=== PATIENT | male | born 1945 | race Caucasian/White ===

== ENCOUNTER → 2016-10-22 | Outpatient (CLI) | payer OTHER, BC ==
[~2016-10-22] MED LIST: ACP20 PO; AFRINWC; AMLO5TAB2 PO; AZEL0.15 NAE; LSN40 PO; MULT-506 PO; OXYC-57 PO; RANI300T2 PO
--- NOTE | 2016-10-22 19:10 | DIAGNOSTIC IMAGING REPORT ---
MRI OF THE CERVICAL SPINE WITHOUT IV CONTRAST CLINICAL HISTORY: Neck pain and left arm numbness. COMPARISON STUDY: No priors. TECHNIQUE: MRI of the cervical spine is performed utilizing various T1 and T2-weighted sequences in the axial and sagittal planes. IV contrast was not administered for this examination. The examination is modestly degraded by motion artifact. FINDINGS: Cervical spine: Vertebral body height and alignment are maintained throughout the cervical spine. There is mild straightening of the cervical lordosis. No destructive bony lesion is seen. A large hemangioma is present in the body of T2. The atlantodental articulation appears preserved. The spinous processes are intact as visualized. Intervertebral discs: There is degenerative disc desiccation and loss of height throughout the cervical spine. This is moderate to severe at C5-C6 and C6-C7. Spinal cord: The cervical spinal cord is normal in morphology and signal intensity. C2-C3: Uncovertebral and facet arthropathy causes moderate right and mild to moderate left neural foraminal stenosis. The central canal is clear. C3-C4: Uncovertebral and facet arthropathy cause moderate to severe bilateral neural foraminal stenosis. The central canal appears clear. C4-C5: A posterior disc osteophyte complex abuts the ventral cord. Uncovertebral and facet arthropathy cause severe left and moderate to severe right neural foraminal stenosis. C5-C6: A posterior disc osteophyte complex eccentric to the left effaces the ventral cord. Uncovertebral and facet arthropathy cause severe left greater than right neural foraminal stenosis. A portion of the disc osteophyte complex extends inferiorly within the central canal. This measures 1.4 cm in length. C6-C7: A posterior disc osteophyte complex eccentric to the right effaces the ventral subarachnoid space. Uncovertebral and facet arthropathy cause mild to moderate right greater than left neural foraminal stenosis. C7-T1: Predominant facet arthropathy causes mild left neural foraminal stenosis. The central canal is clear. Soft tissues: The prevertebral and paraspinous soft tissues are within normal limits. Brain parenchyma: Partially imaged brain parenchyma at the skull base is normal in appearance. IMPRESSION: 1. Multilevel cervical spondylosis as detailed above. This is greatest at C5-C6 where a large posterior disc osteophyte complex extends inferiorly into the central canal, effaces the left aspect of the ventral cord, and contributes to severe left-sided neural foraminal stenosis. 2. See discussion for detailed level by level analysis. 3. The cervical spinal cord is normal in morphology and signal intensity. Dictated: 10/22/2016 5:53 PM Transcribed: 10/22/2016 7:08 PM [email or web address]_Marcella Electronically signed by: Parth Yanez M.D. 10/22/2016 7:11 PM Dictated Date/Time: 10/22/2016 5:53 PM
== END | disposition home or self-care (01) ==
LOC: C.MRI 16:40
DX: M50.00 Cervical disc disorder with myelopathy, unspecified cervical region (principal); M47.12 Other spondylosis with myelopathy, cervical region

== ENCOUNTER → 2016-11-01 | Outpatient (CLI) | payer OTHER, BC | END | disposition home or self-care (01) | LOC: C.LAB 10:36 | DX: E29.1 Testicular hypofunction (principal) ==

== ENCOUNTER → 2016-11-08 | Outpatient (CLI) | payer OTHER, BC ==
[~2016-11-08] MED LIST changes: -AFRINWC; -RANI300T2 PO
[2016-11-08 15:43] LABS: BASO % 0.1 %; BASO ABS # 0.01 K/uL (0-0.2); COMPLETE YES; EOS % 0.6 %; HEMATOCRIT 52.4 % (42-52); IG% 0.7 %; LYMPH % 10.2 %; LYMPH ABS # 1.41 K/uL (1.2-3.4); MEAN CELL VOLUME 92.7 fL (80-100); MEAN CORPUSCULAR HEMOGLOBIN 31.9 pg (25-34); MEAN CORPUSCULAR HGB CONC 34.4 g/dl (32-36); MEAN PLATELET VOLUME 9.8 fL (7.4-10.4); NEUT % 78.4 %; PLATELET COUNT 156 K/uL (130-400); RED BLOOD COUNT 5.65 M/uL (4.7-6.1); WHITE BLOOD COUNT 13.84 K/uL (4.8-10.8)
== END | disposition home or self-care (01) ==
LOC: C.LAB 14:30
PROVIDERS: ATTEND Orthopaedic Surgery Orthopaedic Surgery of the Spine
DX: Z01.812 Encounter for preprocedural laboratory examination (principal)

== ENCOUNTER 2016-11-13 05:30 | Observation (INO) | payer OTHER, BC ==
[2016-11-01 11:16] VITALS: BMI 29.0
--- NOTE | 2016-11-01 11:45 | PAT Medication Instructions ---
Service Date Nov 01, 2016. Current Home Medication List Amlodipine Besylate (Norvasc), 1 TAB PO QAM Azelastine Hcl (Astepro), 2 SPRY SHUN HS Lisinopril (Lisinopril), 40 MG PO QAM Multivitamin (Multivitamin), 1 TAB PO QAM Rabeprazole Sodium (Aciphex *), 20 MG PO QAM Medication Instructions For Your Scheduled Surgery - Hold the following medications the morning of surgery: Lisinopril (Lisinopril), 40 MG PO QAM Multivitamin (Multivitamin), 1 TAB PO QAM - Take the following medications the morning of surgery with a sip of water OTHERWISE NOTHING TO EAT OR DRINK AFTER MIDNIGHT: Amlodipine Besylate (Norvasc), 1 TAB PO QAM Rabeprazole Sodium (Aciphex *), 20 MG PO QAM - Take the following medications as scheduled the night before surgery: Azelastine Hcl (Astepro), 2 SPRY SHUN HS If you have any questions please call us at [phone] or [phone] or [phone]
[2016-11-01 12:15] LABS: BASO % 0.1 %; BASO ABS # 0.01 K/uL (0-0.2); COMPLETE YES; EOS % 0.1 %; HEMATOCRIT 53.3 % (42-52); IG% 0.6 %; LYMPH % 5.6 %; LYMPH ABS # 0.97 K/uL (1.2-3.4); MEAN CELL VOLUME 92.7 fL (80-100); MEAN CORPUSCULAR HEMOGLOBIN 32.7 pg (25-34); MEAN CORPUSCULAR HGB CONC 35.3 g/dl (32-36); MEAN PLATELET VOLUME 9.9 fL (7.4-10.4); MONO % 4.7 %; NEUT % 88.9 %; PLATELET COUNT 169 K/uL (130-400); RED BLOOD COUNT 5.75 M/uL (4.7-6.1); WHITE BLOOD COUNT 17.25 K/uL (4.8-10.8)
--- NOTE | 2016-11-01 12:25 | DIAGNOSTIC IMAGING REPORT ---
CHEST PREADMISSION(PA/LAT) CLINICAL HISTORY: PAT preoperative evaluation COMPARISON STUDY: 10/29/2015 FINDINGS: Mild tortuosity thoracic aorta. Interval removal of the right-sided PICC catheter. Lungs are clear. Diaphragms smooth. IMPRESSION: Negative chest. Electronically signed by: Cj Graham M.D. 11/01/2016 12:24 PM Dictated Date/Time: 11/01/2016 12:23 PM
[2016-11-01 12:28] LABS: URINE APPEARANCE CLEAR (CLEAR); URINE BILIRUBIN NEG (NEG); URINE COLOR YELLOW; URINE NITRITE NEG (NEG); URINE PH 5.5 (4.5-7.5); UROBILINOGEN NEG (NEG)
[2016-11-01 12:35] LABS: BUN/CREATININE RATIO 23.5 (10-20); CREATININE 1.2 mg/dl (0.60-1.40); POTASSIUM 4.9 mmol/L (3.5-5.1)
[2016-11-01 12:41] LABS: MANUAL MICROSCOPIC REQUIRED? NO; REVIEW REQ? NO
[~2016-11-13] VITALS: Ht 182.9 cm; Wt 99.1 kg
[2016-11-13] VITALS (16 sets, daily range): BP systolic 138–156; BP diastolic 77–89; PULSE 85–98; TEMP 36.6–37; O2SAT 91–98; Ht 182.9 cm; Wt 99.1 kg
[~2016-11-13 05:30] MED LIST changes: -OXYC-57 PO
[2016-11-13] MEDS ORDERED: CeleBREX 200 MG CAP PO SCH (06:00)
[2016-11-13] MEDS ORDERED: PREGABALIN 75 MG CAP PO SCH (06:00)
[2016-11-13] MEDS ORDERED: CEFAZOLIN 2000 MG/60 ML D5W IV SCH (06:00)
[2016-11-13] MEDS ORDERED: LACTATED RINGER'S 1000ML 1,000 ML IV SCH (06:00)
[2016-11-13] MEDS ORDERED: DEXAMETHASONE SOD INJ 4 MG/ML VIAL ONE (06:26)
[2016-11-13] MEDS ORDERED: ONDANSETRON INJ 2 MG/ML 2 ML VIAL ONE (06:26)
[2016-11-13] MEDS ORDERED: FENTANYL CITRATE INJ 50 MCG/1 ML 2 ML VIAL ONE ×2 (06:26→09:11)
[2016-11-13] MEDS ORDERED: MIDAZOLAM HCL 1 MG/ML 2ML VIAL ONE (06:26)
[2016-11-13] MEDS ORDERED: ROCURONIUM BROMIDE 10 MG/ML 5 ML VIAL ONE (06:26)
[2016-11-13] MEDS ORDERED: SUCCINYLCHOLINE CHLORIDE 20 MG/ML 10 ML VIAL IV ONE (06:26)
[2016-11-13] MEDS ORDERED: PROPOFOL IV EMULSION 10 MG/ML 20 ML VIAL IV ONE (06:26)
[2016-11-13] MEDS ORDERED: LIDOCAINE HCL 2% 2 ML VIAL (20MG/ML) ONE (06:26)
[2016-11-13] MEDS ORDERED: BACITRACIN 50000 UNIT VIAL ONE (06:52)
[2016-11-13] MEDS ORDERED: THROMBIN 5000 UNITS KIT ONE (06:52)
--- NOTE | 2016-11-13 07:32 | History and Physical ---
History & Physical Date Nov 13, 2016. Chief Complaint neck and LUE pain/numbness History of Present Illness The patient is a 71 year old male with complaints of above who reports progressive symptoms with weakness developing in LUE over past month. 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 no sig R UE symptoms. MRI shows C4-5 central HNP with contact of anterior cord and severe DDD and L foraminal stenosis c5-6. Past Medical/Surgical History Medical Problems: (1) Diverticulitis (2) GERD (gastroesophageal reflux disease) (3) History of diverticulitis (4) Hypertension (5) Partial small bowel obstruction 6.LEYDI, CPAP 7.HTN Surgical Problems: (1) H/O exploratory laparotomy (2) History of colostomy reversal (3) Hx of cataract removal with insertion of prosthetic lens Additional History Hepatic Disease: No Endocrine Disorder: No Kidney Disease: No Hypertension: Yes Heart Disease: No Bleeding Tendencies: No Infectious Diseases: No Allergies Coded Allergies: No Known Allergies (Verified , NONE, 11/13/16) Home Medications Scheduled Amlodipine Besylate (Norvasc), 1 TAB PO QAM Azelastine Hcl (Astepro), 2 SPRY SHUN HS Lisinopril (Lisinopril), 40 MG PO QAM Multivitamin (Multivitamin), 1 TAB PO QAM Rabeprazole Sodium (Aciphex *), 20 MG PO QAM Physical Examination Skin: warm/dry Eyes: normal inspection ENT: normal ENT inspection, pharynx normal Head: normocephalic, atraumatic Neck: supple, trachea midline Respiratory/Chest: lungs clear, no respiratory distress Cardiovascular: regular rate, rhythm Extremities: normal inspection, normal range of motion Neurologic/Psych: no motor/sensory deficits (decreased sensation C6 left), alert, normal reflexes, oriented x 3 Diagnosis C4-6 stenosis and LUE radic Plan of Treatment C4-6 ACDF
[2016-11-13] MEDS ORDERED: HYDROmorphone INJ 2 MG/ML SYR/VIAL ONE (07:51)
[2016-11-13] MEDS ORDERED: FENTANYL CITRATE INJ 50 MCG/1 ML 2 ML VIAL IV PRN (08:15)
[2016-11-13] MEDS ORDERED: ONDANSETRON INJ 2 MG/ML 2 ML VIAL IV PRN (08:15)
[2016-11-13] MEDS ORDERED: ATROPINE SULFATE 0.1 MG/ML 5ML SYR IV PRN (08:15)
[2016-11-13] MEDS ORDERED: HYDROmorphone INJ 1 MG/ML SYR IV PRN ×2 (08:15→10:00)
[2016-11-13] MEDS ORDERED: EpHEDrine SULFATE INJ 50 MG/ML AMP IV PRN (08:15)
[2016-11-13] MEDS ORDERED: NEOSTIGMINE METHYLSULFATE 1 MG/ML 10ML VIAL ONE (09:14)
[2016-11-13] MEDS ORDERED: GLYCOPYRROLATE INJ 0.2 MG/ML VIAL ONE (09:14)
[2016-11-13] MEDS ORDERED: DURASEAL DURAL SEALANT 5ML TOP ONE (09:20)
[2016-11-13] MEDS ORDERED: FLOSEAL HEMOSTATIC MATRIX 5ML TOP ONE (09:20)
--- NOTE | 2016-11-13 09:25 | [facility] Post Operative Brief Note ---
Immediate Operative Summary Operative Date Nov 13, 2016. Pre-Operative Diagnosis C4-6 stenosis and left upper extremity radiculopathy Post-Operative Diagnosis C4-6 stenosis and left upper extremity radiculopathy Procedure(s) Performed C4-C6 Anterior Cervical Discectomy and Fusion, Allograft, PEEK, and Prophylactic Use Of Duraseal Surgeon Dr. Negrito Hdz Snorkelling Instructor Surgeon(s) Lakhwinder Laughlin PA-C Estimated Blood Loss 50ml Findings dict Specimens None per surgeon
[2016-11-13] MEDS ORDERED: ACETAMINOPHEN IV 100 ML IV PRN (09:30)
[2016-11-13] MEDS ORDERED: LORAZEPAM INJ 0.5 MG in SYRINGE 0.75 ML IV PRN (09:30)
[2016-11-13] MEDS ORDERED: LORAZEPAM 0.5 MG TAB PO PRN (09:30)
[2016-11-13] MEDS ORDERED: OXYCODONE HCL IR 5 MG TAB (IMMEDIATE RELEASE) PO PRN (09:30)
[2016-11-13] MEDS ORDERED: NALOXONE HCL 0.4 MG/1 ML VIAL/CARP IV PRN (09:30)
[2016-11-13] MEDS ORDERED: DEXAMETHASONE INJ 8 MG in SYRINGE 0 ML IV PRN (09:30)
[2016-11-13] MEDS ORDERED: HYDROmorphone INJ 0.5 MG/0.5 ML SYR IV PRN (09:30)
[2016-11-13] MEDS ORDERED: RACEPINEPHRINE 2.25% NEBU SOLN 0.5 ML VIAL INH PRN (09:30)
[2016-11-13] MEDS ORDERED: OXYC-57 PO (09:32)
--- NOTE | 2016-11-13 09:33 | Discharge Instructions ---
Discharge Instructions Admission Reason for Admission: Cervical Spinal Stenosis Discharge Discharge Diagnosis / Problem: Cervical stenosis Discharge Goals Goal(s): Decrease discomfort, Improve function, Increase independence Activity Recommendations Activity Limitations: as noted below Lifting Limitations: no more than 5 pounds Exercise/Sports Limitations: until after follow-up appointment May Resume Sexual Activity: after follow-up appointment . Instructions / Follow-Up Instructions / Follow-Up ACTIVITY RECOMMENDATIONS: SELF CARE INSTRUCTIONS AFTER CERVICAL FUSIONS 1. No smoking. Smoking drastically decreases the chance of a solid fusion. 2. No bending, lifting more than 5 pounds, or twisting (roll like a log when turning in bed). 3. You may shower 3 days after surgery. Thoroughly dry wound. Do not soak in the tub. 4. Cervical collar: Must be worn at all times including sleeping. You may remove the brace only to bath, eat and if you are sitting in a recliner. 5. Please walk as much as you can for exercise. Gradually increase the distance that you walk as your endurance increases. SPECIAL CARE INSTRUCTIONS: VERY IMPORTANT TO READ AND REVIEW A. Do not take any anti-inflammatory medications (i.e. Indocin, Advil, Aspirin, Naprosyn, Aleve, Motrin, etc.) as these may inhibit the chance of a solid fusion. Tylenol is okay to take. B. Your surgical incision has been closed with a cosmetic suture under the skin that will dissolve in about 6 weeks. In 14 days, you can use a pair of clean scissors and cut the suture that is left outside of the skin at the ends of your incision. C. Complications are uncommon, but please contact us if you have any signs or symptoms of: 1. wound infection (fever higher than 102.5 degrees F, redness, separation of wound, drainage, or increasing pain from the incision) 2. blood clots in legs (pain, swelling, redness and warmth in legs) 3. urinary tract infection (fever higher than 102.5 degrees, burning upon urination or increased frequency of urination) 4. nerve problems (inability to walk on your toes or heels, numbness, loss of bowel or bladder control) 5. any other symptoms that concern you. D. Please call the office at if you have any concerns or questions about your operation or recovery. MANAGING PAIN AFTER SPINAL SURGERY 1. Narcotic medication is intended for short-term use and will be provided for surgical pain. Surgical pain usually lasts for a period of 4-6 weeks. Narcotic medication includes Percocet, Vicodin, Darvocet, Tylenol #3 or Lortab. 2. Longer-term pain is more appropriately treated with non-narcotic medication such as Tylenol ES. 3. Muscle spasm is not appropriately treated with narcotics. Muscle relaxers such as Soma, Flexeril or Skelaxin can be used along with Tylenol ES. 4. Remember that we all live with some "aches and pains". This is not unusual or uncommon after an injury or as we get older. 5. We will provide appropriate medication within the normal guidelines of their prescribed use. We will also be very cautious and aware of potential abuse and extended duration of patients' medication needs. 6. Please allow 2-3 days to process refills. Prescriptions will not be mailed but must be picked up at the office. FOLLOW UP VISIT: Keep your scheduled follow-up appointment. Any questions, please call the office at . Current Hospital Diet Patient's current hospital diet: Clear Liquid Diet Discharge Diet Recommended Diet: Regular Diet Procedures Procedures Performed: C4-C6 Anterior Cervical Discectomy and Fusion, Allograft, PEEK, and Prophylactic Use Of Duraseal Pending Studies Studies pending at discharge: no Medical Emergencies . Who to Call and When: Medical Emergencies: If at any time you feel your situation is an emergency, please call 911 immediately. . Non-Emergent Contact Non-Emergency issues call your: Surgeon Call Non-Emergent contact if: temperature is above 101, your pain is not controlled, your pain is worsening, your pain is unusual for you, your pain is concerning you, wound has increased drainage, wound has increased redness, wound has increased pain, you have any medication questions . "Provider Documentation" section prepared by Lakhwinder Laughlin. VTE Core Measure Inpt VTE Proph given/why not?: Michelle Harris
--- NOTE | 2016-11-13 10:46 | Anesthesiology Progress Note ---
Anesthesia Post Op Note Date & Time Nov 13, 2016 at 10:46 Vital Signs Pain Intensity: 0 Vital Signs Past 12 Hours Date Time Temp Pulse Resp B/P Pulse Ox O2 Delivery O2 Flow Rate FiO2 11/13/16 10:40 36.5 81 20 153/81 97 Nasal Cannula 3 11/13/16 10:30 85 14 149/78 95 Nasal Cannula 3 11/13/16 10:20 85 14 142/75 95 Nasal Cannula 3 11/13/16 10:10 84 14 141/80 95 Nasal Cannula 3 11/13/16 10:00 89 14 143/76 95 Mask 10 11/13/16 09:50 91 14 128/72 95 Mask 10 11/13/16 09:40 86 14 117/73 95 Mask 10 11/13/16 09:38 36.3 84 14 116/72 95 Mask 10 11/13/16 06:01 37 87 20 148/81 98 Room Air Notes Mental Status: alert / awake / arousable, participated in evaluation Pt Amnestic to Procedure: Yes Nausea / Vomiting: adequately controlled Pain: adequately controlled Airway Patency, RR, SpO2: stable & adequate BP & HR: stable & adequate Hydration State: stable & adequate Anesthetic Complications: no major complications apparent
[2016-11-13] MEDS ORDERED: IV FLUIDS COMPLETED PRN (11:15)
[2016-11-13] MEDS: SODIUM CHLORIDE 0.9% 1000ML 1,000 ML IV SCH ×2 (12:17→21:37)
--- NOTE | 2016-11-13 13:04 | OPERATIVE REPORT ---
DATE OF OPERATION: 11/13/2016 PREOPERATIVE DIAGNOSES: 1. Cervical disc herniations C4-C5 and cervical stenosis C5-C6. 2. Cervical disc degeneration. 3. Cervical spondylosis. POSTOPERATIVE DIAGNOSIS: Same. PROCEDURES: 1. Anterior cervical discectomy and fusion with application of PEEK intervertebral spacer with local autograft and DBM putty C4-C5. 2. Anterior cervical discectomy and fusion with application of PEEK intervertebral spacer with local autograft and DBM putty C5-C6. 3. Anterior cervical instrumentation with LDR anterior blade plate C4-C5 and C5-C6. SURGEON: Dr. Hdz. GEOSCIENCE PROFESSOR: Lakhwinder Laughlin PA-C. Please note he participated in all portions of the procedure and was critical for performance of the procedure, participated in positioning, prepping, draping, retraction and wound closure. ANESTHESIA: General endotracheal anesthesia. COMPLICATIONS: None. ESTIMATED BLOOD LOSS: Minimal. OPERATION AND FINDINGS: PROCEDURE: After identification of the patient and operative level, he was brought to the OR where he underwent induction of general anesthesia. He was then positioned supine on the [facility] OR table with Stewart horseshoe head pastry chef. The arms were tucked at sides and well padded. Shoulders taped distally and anterior neck was sterilely prepped and draped in usual fashion. Antibiotics were administered. Time-out was performed. Level was confirmed and skin incision was made on the right side of the neck at the level of the cricoid cartilage. I divided the platysma in line with the incision and performed routine anterior cervical exposure with blunt dissection, identified the presumptive disc spaces and marked them with electrocautery, I mobilized the longus colli. I placed self-retaining cervical retractor and put Bayard pins in the bodies of C4 and C6, applied slight distraction across the pins and then proceeded to do complete discectomies at C4-C5 and C5-C6. Discectomy was carried back to the posterior osteophytes, taken down with a jeferson and then I removed the posterior annulus and the PLL. During decompression of the foramen on the left at C6 I questioned whether there was a small arachnoid bleb, simply may have been an epidural vein. There was no leak noted throughout the remainder of the procedure of CSF. I passed a probe through the foramen to confirm the nerve root was decompressed and confirmed nerve roots were decompressed at L4-5 as well. I then decorticated the endplates at C4-C5 and C5-C6 with a high speed bur. I determined graft size with trial sizers and filled PEEK cages with local bone and DBM putty and tamped into position C4-C5 and C5-C6. After insertion of the cages I placed plates C4-C5 and C5-C6 through the cages to anchor the cages in the vertebral bodies. I did release the Bayard distraction pins prior to placing the blades. I then irrigated with bacitracin solution and confirmed hemostasis and closed over a small round drain. All sponge and needle counts were correct at the end of the case. Final x-rays were obtained at the end. I attest to the content of the Intraoperative Record and any orders documented therein. Any exceptio ns are noted below.
--- NOTE | 2016-11-13 13:46 | DIAGNOSTIC IMAGING REPORT ---
INTRAOPERATIVE RADIOGRAPHS CLINICAL HISTORY: C4-C6 spinal fusion. Fluoroscopy time: 13 seconds. FINDINGS: 3 spot fluoroscopic views of the cervical spine are presented. There is evidence of discectomy at C4-C5 and C5-C6 with anterior fusion at these levels. The orthopedic hardware appears intact. An endotracheal tube is in place. IMPRESSION: Intraoperative images from C4 -C6 spinal fusion as above. Electronically signed by: Parth Yanez M.D. 11/13/2016 1:45 PM Dictated Date/Time: 11/13/2016 1:44 PM
[2016-11-13] MEDS: CEFAZOLIN IV 1,000 MG in DEXTROSE 5% 50ML 50 ML IV SCH ×2 (15:23→23:51)
[2016-11-13] MEDS: DEXAMETHASONE INJ 6 MG in SYRINGE 0 ML IV SCH ×2 (15:23→23:52)
[2016-11-13] MEDS ORDERED: AZELASTINE HCL 30 ML INH NAE SCH (21:00)
[2016-11-14] VITALS (8 sets, daily range): BP systolic 149–163; BP diastolic 88–97; PULSE 86–95; TEMP 36.6–36.7; O2SAT 92–97
[2016-11-14] MEDS ORDERED: COUGH DROP (SUGAR FREE) LOZ 24 LOZ/1 BOX ONE (07:03)
[2016-11-14] MEDS: DEXAMETHASONE INJ 6 MG in SYRINGE 0 ML IV SCH (07:11)
[2016-11-14] MEDS ORDERED: COUGH DROP (SUGAR FREE) LOZ 24 LOZ/1 BOX PO PRN (07:15)
[2016-11-14] MEDS ORDERED: NURSING DECISION MEDICATION ORDER SCH (07:15)
[2016-11-14] MEDS: CEFAZOLIN IV 1,000 MG in DEXTROSE 5% 50ML 50 ML IV SCH (07:18)
--- NOTE | 2016-11-14 07:23 | Orthopedic Progress Note ---
Orthopedic Progress Note Date of Service Nov 14, 2016. Subjective Post OP Day: 1 Reports: feeling well, pain controlled w PO medications, Denies: SOB, calf pain , chest pain, complaints, light headedness, nausea / vomiting Additional Notes: Doing well with resolution of pre op symptoms of pain and numbness in arms and hands. Restful night with no issues. Pain is well controlled. Medically stable. Objective N/V intact, dressing C/D/I, A&O x3, toes mobile, hemovac drainage Date Time Temp Pulse Resp B/P Pulse Ox O2 Delivery O2 Flow Rate FiO2 11/14/16 07:10 36.6 95 18 163/97 97 Room Air 11/14/16 05:29 36.6 88 18 158/88 93 Room Air 11/14/16 03:30 36.6 89 17 149/91 95 Nasal Cannula 2.0 Humidified Oxygen 11/14/16 03:22 18 92 Nasal Cannula 2.0 11/14/16 01:27 36.7 86 16 155/88 94 Nasal Cannula 3.0 Humidified Oxygen 11/13/16 23:50 Nasal Cannula 3.0 Humidified Oxygen 11/13/16 23:30 36.8 96 18 146/88 95 Nasal Cannula 2.0 Humidified Oxygen 11/13/16 23:03 18 93 Room Air 11/13/16 21:31 36.7 97 18 155/89 95 Nasal Cannula 3.0 Humidified Oxygen 11/13/16 21:06 98 18 91 Room Air 11/13/16 19:27 36.8 93 16 146/89 95 Nasal Cannula 3.0 Humidified Oxygen 11/13/16 17:30 36.8 92 18 156/89 95 Nasal Cannula 3.0 Humidified Oxygen 11/13/16 16:39 93 18 96 Nasal Cannula 3.0 11/13/16 15:28 36.6 94 16 145/89 94 Nasal Cannula 3.0 Humidified Oxygen 11/13/16 15:20 Nasal Cannula 3.0 Humidified Oxygen 11/13/16 13:36 36.7 96 16 146/77 96 Nasal Cannula 3.0 Humidified Oxygen 11/13/16 12:30 88 16 148/78 97 Nasal Cannula 3.0 Humidified Oxygen 11/13/16 11:58 36.6 87 16 147/85 95 Room Air 3.0 Humidified Oxygen 11/13/16 11:56 93 16 95 Nasal Cannula 3.0 11/13/16 11:36 36.8 85 16 138/80 95 Nasal Cannula 3.0 Humidified Oxygen 11/13/16 11:30 36.8 85 16 138/80 95 Nasal Cannula 3.0 Humidified Oxygen 11/13/16 11:29 Room Air 11/13/16 11:24 36.8 88 16 148/80 93 Nasal Cannula 2.0 Humidified Oxygen 11/13/16 11:21 93 Nasal Cannula 2.0 11/13/16 10:50 90 20 139/78 95 Nasal Cannula 3 11/13/16 10:40 36.5 81 20 153/81 97 Nasal Cannula 3 11/13/16 10:30 85 14 149/78 95 Nasal Cannula 3 11/13/16 10:20 85 14 142/75 95 Nasal Cannula 3 11/13/16 10:10 84 14 141/80 95 Nasal Cannula 3 11/13/16 10:00 89 14 143/76 95 Mask 10 11/13/16 09:50 91 14 128/72 95 Mask 10 11/13/16 09:40 86 14 117/73 95 Mask 10 11/13/16 09:38 36.3 84 14 116/72 95 Mask 10 Assessment & Plan Assessment: s/p cervical fusion Plan: Doing well, d/c drain and change bandage, discharge home today
[2016-11-14] MEDS ORDERED: AMLODIPINE BESYLATE 5 MG TAB PO SCH (09:00)
[2016-11-14] MEDS ORDERED: PANTOprazole SOD 40 MG TAB PO SCH (09:00)
[2016-11-14] MEDS ORDERED: LISINOPRIL 40 MG TAB PO SCH (09:00)
--- NOTE | 2016-11-26 13:14 | DISCHARGE SUMMARY ---
PREOPERATIVE DIAGNOSES: Cervical disk herniation C4-C5, C5-C6. Cervical disc degeneration, cervical spondylosis. POSTOPERATIVE DIAGNOSES: Same. PROCEDURE: ACDF C4-C5, C5-C6. SURGEON: Dr. Negrito Hdz. AIR FORCE PILOT: Lakhwinder Laughlin PA-C. HISTORY OF PRESENT ILLNESS: Please refer to EMR. HOSPITAL COURSE: On 11/13/2016, Mr. Salazar was admitted to [facility] with the above diagnosis. He was taken to preoperative holding where he was identified and evaluated and cleared for surgical procedure and transported to the operating room, introduced with general endotracheal anesthesia. Sterile conditions were set and he successfully underwent the above procedure without complication or issue. He was awakened in stable and satisfactory condition and placed in a hard collar immobilization and transported to postoperative recovery. Here vital signs and pain were monitored and managed. The patient remained medically stable with no complications or issues and taken to the orthopedic floor for continued postoperative care. Throughout his stay, his vital signs, pain were monitored and managed effectively with no issues. He had no difficulty swallowing or breathing. He remained immobilization, NADER drain was functioning. He had no iatrogenic or postoperative complications. He was evaluated on the morning of 11/14/2016 and indicated for return home. On this date he was discharged from [facility]. DISPOSITION: Home. DISPOSITION CONDITION: Stable. NOTED COMPLICATIONS OR ISSUES: Zero. DISCHARGE INSTRUCTIONS: Please refer to EMR.
== END 2016-11-14 11:15 | disposition home or self-care (01) ==
LOC: ENRESERVDT → ENRESERVTM → C.ACU 05:30 → C.3E 09:27
PROVIDERS: ADMIT Orthopaedic Surgery Orthopaedic Surgery of the Spine; ATTEND Orthopaedic Surgery Orthopaedic Surgery of the Spine
DX: M50.221 Other cervical disc displacement at C4-C5 level (principal); M48.02 Spinal stenosis, cervical region; M50.30 Other cervical disc degeneration, unspecified cervical region; M47.812 Spondylosis without myelopathy or radiculopathy, cervical region; K21.9 Gastro-esophageal reflux disease without esophagitis; I10 Essential (primary) hypertension; G47.33 Obstructive sleep apnea (adult) (pediatric)

== ENCOUNTER → 2017-01-11 | Outpatient (CLI) | payer OTHER, BC ==
[~2017-01-11] MED LIST changes: +OXYC-57 PO
[2017-01-11 09:37] LABS: HEMATOCRIT 46.1 % (42-52); MEAN CELL VOLUME 92.9 fL (80-100); MEAN CORPUSCULAR HEMOGLOBIN 32.1 pg (25-34); MEAN CORPUSCULAR HGB CONC 34.5 g/dl (32-36); MEAN PLATELET VOLUME 10.5 fL (7.4-10.4); PLATELET COUNT 208 K/uL (130-400); RED BLOOD COUNT 4.96 M/uL (4.7-6.1); WHITE BLOOD COUNT 7.79 K/uL (4.8-10.8)
[2017-01-11 09:56] LABS: BLOOD UREA NITROGEN 18 mg/dl (7-18); BUN/CREATININE RATIO 14.8 (10-20); CARBON DIOXIDE 29 mmol/L (21-32); CHLORIDE 108 mmol/L (98-107); CHOLESTEROL 193 mg/dl (0-200); GLUCOSE 99 mg/dl (70-99); POTASSIUM 4.5 mmol/L (3.5-5.1); SODIUM 142 mmol/L (136-145); TRIGLYCERIDES 167 mg/dl (0-150); VERY LOW DENSITY LIPOPROT CALC 33 mg/dl
[2017-01-11 09:59] LABS: ALKALINE PHOSPHATASE 97 U/L (45-117); ALT/SGPT 33 U/L (12-78); AST/SGOT 18 U/L (15-37); CHOLESTEROL/HDL RATIO 5.1; HDL CHOLESTEROL 38 mg/dl; LDL CHOLESTEROL CALCULATED 122 mg/dl
[2017-01-11 10:03] LABS: T3 TOTAL 1.18 ng/ml (0.60-1.81); URINE APPEARANCE CLEAR (CLEAR); URINE BILIRUBIN NEG (NEG); URINE COLOR YELLOW; URINE NITRITE NEG (NEG); UROBILINOGEN NEG (NEG)
[2017-01-11 10:15] LABS: ESTIMATED AVERAGE GLUCOSE 120 mg/dl; HA1C FLAG Normal (Normal)
[2017-01-11 10:24] LABS: MANUAL MICROSCOPIC REQUIRED? NO; REVIEW REQ? NO
[2017-01-11 10:27] LABS: CALCIUM 9.2 mg/dl (8.5-10.1)
== END | disposition home or self-care (01) ==
LOC: C.LAB 08:04
DX: R73.01 Impaired fasting glucose (principal); E29.1 Testicular hypofunction; I10 Essential (primary) hypertension; R53.83 Other fatigue

== ENCOUNTER → 2018-02-14 | Outpatient (CLI) | payer OTHER, BC ==
[~2018-02-14] MED LIST changes: -OXYC-57 PO
[2018-02-14 10:36] LABS: HEMATOCRIT 45.7 % (42-52); MEAN CELL VOLUME 96.6 fL (80-100); MEAN CORPUSCULAR HEMOGLOBIN 33.8 pg (25-34); MEAN PLATELET VOLUME 10.1 fL (7.4-10.4); PLATELET COUNT 173 K/uL (130-400); RED CELL DISTRIBUTION WIDTH CV 13.4 % (11.5-14.5); RED CELL DISTRIBUTION WIDTH SD 46.7 fL (36.4-46.3); WHITE BLOOD COUNT 8.01 K/uL (4.8-10.8)
[2018-02-14 13:16] LABS: ALBUMIN 3.4 gm/dl (3.4-5.0); ALKALINE PHOSPHATASE 115 U/L (45-117); ALT/SGPT 34 U/L (12-78); AST/SGOT 22 U/L (15-37); BLOOD UREA NITROGEN 16 mg/dl (7-18); CALCIUM 8.6 mg/dl (8.5-10.1); CARBON DIOXIDE 28 mmol/L (21-32); CHOLESTEROL 168 mg/dl (0-200); CREATININE 1.22 mg/dl (0.60-1.40); GLUCOSE 95 mg/dl (70-99); LDL CHOLESTEROL CALCULATED 97 mg/dl; POTASSIUM 4.4 mmol/L (3.5-5.1); SODIUM 139 mmol/L (136-145)
== END | disposition home or self-care (01) ==
LOC: C.LAB 09:10
PROVIDERS: ATTEND Physician Assistant
DX: E29.1 Testicular hypofunction (principal)

== ENCOUNTER 2023-05-07 02:51 | Inpatient (IN) ==
[2023-05-07] MEDS ORDERED: SODIUM CHLORIDE 0.9% 500 ML IV STA (03:03)
--- NOTE | 2023-05-07 03:21 | Emergency Department Note ---
Impression & Plan Diffuse abdominal pain, SBO (small bowel obstruction), Abdominal distension, Leukocytosis ED Provider Note NAME: LISA Monroe EARLY AGE: 77 SEX: M : 1945 ARRIVES VIA: Walk-In INFORMANT: [Patient] ED PROVIDER(S): [Parth Valenzuela MD] CHIEF COMPLAINT: GI assessment HISTORY OF PRESENT ILLNESS: The patient is a 77-year-old male who states that 2 days ago, he had diarrhea. He took some Imodium and this seemed to stop things. In the last 12 to 24 hours his abdomen has become distended and he has had some occasional abdominal pain. He has in the past undergone bowel surgery for a bowel obstruction, patient is concerned he has another bowel obstruction. The patient does admit to passing some gas, no stool though lately. He is not short of breath. There has been no chest pain. No fever. No nausea or vomiting. No urinary complaints. He tried Gas-X without relief. PMHx/PSHx: See Below SOCIAL HISTORY: See Below. PHYSICAL EXAM: GENERAL: Patient is in no acute distress. HEENT: No acute trauma, normocephalic atraumatic, mucous membranes moist, no nasal congestion. NECK: No stridor, no adenopathy, no meningismus, trachea is midline. LUNGS: Clear to auscultation bilaterally, no wheeze, no rhonchi, breath sounds equal. HEART: 2/6 systolic murmur, regular rate and rhythm. ABDOMEN: Soft, mildly diffusely tender. The abdomen is distended. There is tympany with percussion. Scant bowel sounds. EXTREMITIES: No cyanosis, mild bilateral pedal edema, full range of motion of all the joints without pain or difficulty, no signs for acute trauma. NEUROLOGIC: Oriented x 3, no acute motor or sensory deficits, no focal weakness. SKIN: No rash, no jaundice, no diaphoresis. DIFFERENTIAL DIAGNOSIS: Ileus, colitis, small bowel obstruction, dehydration, electrolyte imbalance, large bowel obstruction, viral illness, among others. EMERGENCY DEPARTMENT COURSE/PROCEDURES: Prior/Outside records reviewed: Recent cardiology note. ECG per my interpretation: Indication was abdominal pain. The ECG shows a normal sinus rhythm with a rate of 78. 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 There is no ST elevation, no PVCs. QTc is 396. Continuous Cardiac Monitoring per my interpretation: An order was placed for continuous cardiac monitoring. The monitor shows a rate of 90 with normal sinus rhythm. MEDICAL DECISION MAKING: There is a mild leukocytosis, this could be consistent with infection or his pain. There was a normal hemoglobin and platelet count. No renal failure or significant electrolyte abnormality. No concerning liver enzyme elevation. No evidence for pancreatitis. Abdominal and pelvis CT does show findings of small bowel obstruction, no bowel perforation. On exam, patient has some mild diffuse abdominal discomfort. His abdomen was distended. He was not febrile. There was no peritonitis. Patient received a 500 cc saline bolus. An NG tube was placed to low intermittent suction. Given the findings of small bowel obstruction, I do believe the patient requires a hospital stay. I did speak with general surgery, , I spoke with the on-call hospitalist. Case management has been involved. DISPOSITION: Patient's presentation and findings warrant a hospital stay. Past Med/Surg History Medical History Allergic rhinitis Carpal tunnel syndrome, bilateral Cervical radiculopathy Deviated septum Dizziness and giddiness Essential tremor Idiopathic polyneuropathy Lyme disease Malaise and fatigue Tarsal tunnel syndrome Tinea pedis Vertigo Family History Father Hypertension Grandfather Prostate cancer Social History Smoking Status: Never smoker Hx Alcohol Use: No Hx Substance Use: No Preferred Language: Kenyan Visual Impairment: No Limitations Hearing Ability: Normal Emergency Dept Tech Required: No Beliefs That Will Affect Care: None marital status: Current Living Situation: Spouse current occupational status: employed 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 Feels Safe at Home: Yes Diet: regular Allergies Allergies Allergy/AdvReac Type Severity Reaction Status Date / Time No Known Allergies Allergy Mild NONE Verified 10/11/22 13:41 Home Meds Home Medications Medication Instructions Recorded Confirmed albuterol sulfate 90 mcg/actuation 1 inh inhalation QID 02/16/21 10/11/22 aerosol inhaler (Ventolin HFA) beclomethasone dipropionate 80 2 spray intranasal DAILY 02/16/21 10/11/22 mcg/actuation nasal HFA inhaler (QNASL) ipratropium bromide 21 mcg (0.03 2 spray intranasal BID 02/16/21 10/11/22 %) nasal spray rabeprazole 20 mg tablet,delayed 20 mg PO DAILY 02/16/21 10/11/22 release (AcipHex) tamsulosin 0.4 mg capsule 0.4 mg PO DAILY 02/16/21 10/11/22 testosterone cypionate 200 mg/mL mg IM 02/16/21 10/11/22 intramuscular kit triazolam 0.25 mg tablet PO 02/16/21 10/11/22 valacyclovir 500 mg tablet 500 mg PO DAILY 05/11/21 10/11/22 valsartan 160 mg tablet 160 mg PO DAILY 05/11/21 10/11/22 chlorthalidone 25 mg tablet 12.5 mg PO DAILY 08/31/21 09/19/22 propranolol 80 mg tablet 80 mg PO .COMPLEX 09/19/22 10/11/22 Previous Rx's Medication Instructions Recorded tadalafil 5 mg tablet 5 mg PO DAILY sexual activity #30 03/21/21 tabs atorvastatin 10 mg tablet 10 mg PO DAILY #90 tabs 11/07/22 primidone 50 mg tablet 50 mg PO TID #270 tabs 04/26/23 Results & Data (ED) Vital Signs Vital Signs - 24 hr 05/07/23 02:54 05/07/23 03:19 05/07/23 03:16 Temperature 36.6 C Temperature Source Temporal Artery Scan Pulse Rate 90 78 77 Respiratory Rate 20 18 Respiratory Effort / Characteristics Non-Labored Respiratory Depth Normal Blood Pressure 161/100 H 167/101 H Blood Pressure Mean 120 123 Pulse Oximetry 99 93 Oxygen Delivery Method Room Air Sepsis Recent Fever Within 48 Hours No Sepsis New/Unexplained Change in Mental Status N/A Sepsis Action Taken by Nursing No Action Required Home Medications Current Medication List: was personally reviewed by me Laboratory Data Attestation: I reviewed the patient's lab results. 05/07/23 03:25 05/07/23 03:25 Lab Results 05/07/23 05/07/23 Range/Units 03:25 03:25 WBC 11.89 H (4.8-10.8) K/ul RBC 5.76 (4.70-6.10) M/uL Hgb 17.1 (14.0-18.0) g/dl Hct 50.9 (42.0-52.0) % MCV 88.4 (80.0-100.0) fL MCH 29.7 (25.0-34.0) pg MCHC 33.6 (32.0-36.0) g/dL RDW Std Deviation 47.2 H (36.4-46.3) fL RDW Coeff of Rosario 14.6 H (11.5-14.5) % Plt Count 170 (130-400) K/uL MPV 10.3 (9.4-12.4) fL Immature Gran % (Auto) 0.6 % Neut % (Auto) 74.1 % Lymph % (Auto) 12.3 % [place] % (Auto) 11.9 % Eos % (Auto) 0.7 % Baso % (Auto) 0.4 % Neut # (Auto) 8.81 H (1.40-6.50) K/uL Lymph # (Auto) 1.46 (1.2-3.4) K/uL [place] # (Auto) 1.42 H (0.11-0.59) K/uL Eos # (Auto) 0.08 (0-0.50) K/uL Baso # (Auto) 0.05 (0-0.2) K/uL Immature Gran # (Auto) 0.07 (0.01-0.20) K/uL Sodium 136 (136-145) mmol/L Potassium 3.9 (3.5-5.1) mmol/L Chloride 103 (98-107) mmol/L Carbon Dioxide 25 (21-32) mmol/L Anion Gap 8 (3-11) BUN 23 (6-23) mg/dl Creatinine 1.19 (0.6-1.4) mg/dl Est Cr Clr Drug Dosing 63.9 ml/min Est GFR ( Amer) 68.4 ml/min Est GFR (Non-Af Amer) 59.0 ml/min BUN/Creatinine Ratio 19.3 (10-20) Glucose 119 H (70-99(Fasting)) mg/dl Calcium 9.2 (8.6-10.3) mg/dl Magnesium 1.7 (1.7-2.4) mg/dl Total Bilirubin 0.7 (0.2-1.0) mg/dl AST 15 (13-39) U/L ALT 16 (7-52) U/L Alkaline Phosphatase 92 (34-104) U/L Total Protein 6.9 (6.0-8.3) gm/dl Albumin 3.6 (3.4-5.0) gm/dl Globulin 3.3 (2.5-4.0) gm/dl Albumin/Globulin Ratio 1.1 (0.9-2) Lipase 14 (11-82) U/L Administered Medications Discontinued Medications Sodium Chloride (Nss) 500 mls @ 999 mls/hr IV .Q31M STA Stop: 05/07/23 03:33 Last Infusion: 05/07/23 04:16 Dose: 0 mls/hr Documented By: Admin: 05/07/23 03:29 Dose: 999 mls/hr Documented By: CANDIDO Ioversol (Optiray 350 500ml) 100 ml IV ONCE ONE Stop: 05/07/23 04:16 Last Admin: 05/07/23 04:15 Dose: 93 ml Documented By: RENE Imaging Data Radiologist's Impression: Abdomen/Pelvis CT 05/07/23 03:03 Exam(s): CT ABDOMEN + PELVIS With Contrast IV Amt: 93 ML OPTIRAY 350 EXAM: CT Abdomen and Pelvis With Intravenous Contrast CLINICAL HISTORY: Reason for exam: poss obstructions. TECHNIQUE: Axial computed tomography images of the abdomen and pelvis with intravenous contrast. Automated exposure control was utilized for the study. A dose lowering technique was utilized adhering to the principles of ALARA. CONTRAST: Patient received 93 ML OPTIRAY 350 of IV contrast COMPARISON: CT 03/07/2021 FINDINGS: Mediastinum: Small hiatal hernia. ABDOMEN: Liver: Unremarkable. Gallbladder and bile ducts: Cholelithiasis without cholecystitis. Pancreas: Unremarkable. Spleen: Unremarkable. Adrenals: Unremarkable. Kidneys and ureters: Unremarkable. No obstructing stones. No hydronephrosis. Stomach and bowel: Fluid filled mildly prominent small bowel loops potentially representing low-grade obstruction. No abrupt transition point identified. Intact sutures within the sigmoid colon. PELVIS: Appendix: No findings to suggest acute appendicitis. Bladder: Unremarkable. Reproductive: Mild prostatomegaly. ABDOMEN and PELVIS: Intraperitoneal space: Unremarkable. No free air. No significant fluid collection. Bones/joints: No acute fracture. Soft tissues: Unremarkable. Vasculature: Aortobiiliac atherosclerotic calcifications. Lymph nodes: Unremarkable. IMPRESSION: 1. Fluid filled mildly prominent small bowel loops potentially representing low-grade obstruction. No abrupt transition point identified. 2. Small hiatal hernia. 3. Cholelithiasis without cholecystitis. Electronically signed by: Bladimir Ruby MD 05/07/23 04:55 AM Discharge Plan Visit Data Chief Complaint: GI Assessment Stated Complaint: POSSIBLE BOWEL BLOCKAGE ED Provider: Parth Valenzuela Discharge Problem: Diffuse abdominal pain, SBO (small bowel obstruction), Abdominal distension, Leukocytosis Patient Disposition: Admitted As Inpatient Condition: Fair Forms Stand Alone Forms: My [facility] Prescriptions Prescriptions: No Action atorvastatin 10 mg tablet 10 mg PO DAILY Qty: 90 3RF primidone 50 mg tablet 50 mg PO TID Qty: 270 3RF albuterol sulfate [Ventolin HFA] 90 mcg/actuation HFA aerosol inhaler 1 inh inhalation QID ipratropium bromide 21 mcg (0.03 %) spray,non-aerosol 2 spray intranasal BID Rx Instructions: administer into each nostril testosterone cypionate 200 mg/mL kit IM rabeprazole [AcipHex] 20 mg tablet,delayed release (DR/EC) 20 mg PO DAILY triazolam 0.25 mg tablet PO tamsulosin 0.4 mg capsule 0.4 mg PO DAILY QNASL 80 mcg/actuation HFA aerosol inhaler 2 spray intranasal DAILY Rx Instructions: administer into one nostril valacyclovir 500 mg tablet 500 mg PO DAILY tadalafil 5 mg tablet 5 mg PO DAILY Qty: 30 11RF propranolol 80 mg tablet 80 mg PO .COMPLEX Rx Instructions: 80 mg PO Daily extended release, for BP also, from PCP valsartan 160 mg tablet 160 mg PO DAILY chlorthalidone 25 mg tablet 12.5 mg PO DAILY Referrals Referrals: Silverio Pride PA-C [Primary Care Provider] - Leukocytosis Qualifiers: Leukocytosis type: unspecified Qualified Code(s): D72.829 - Elevated white blood cell count, unspecified
[2023-05-07 03:58] LABS: Albumin Globulin Ratio 1.1 (0.9-2); Albumin Level 3.6 gm/dl (3.4-5.0); BUN Creatinine Ratio 19.3 (10-20); Bilirubin,Total 0.7 mg/dl (0.2-1.0); Calcium 9.2 mg/dl (8.6-10.3); Creatinine Clr Calc Pharmacy 63.9 ml/min; Est GFR (African American) 68.4 ml/min; Globulin 3.3 gm/dl (2.5-4.0); Magnesium 1.7 mg/dl (1.7-2.4); Potassium 3.9 mmol/L (3.5-5.1); Total Protein 6.9 gm/dl (6.0-8.3)
[2023-05-07] MEDS ORDERED: OPTIRAY 350 500ml IV ONE (04:15)
[2023-05-07 04:38] LABS: Basophils # (auto) 0.05 K/uL (0-0.2); Basophils % (auto) 0.4 %; Eosinophils # (auto) 0.08 K/uL (0-0.50); Eosinophils % (auto) 0.7 %; Hematocrit (blood only) 50.9 % (42.0-52.0); Hemoglobin 17.1 g/dl (14.0-18.0); Immature Granulocytes # (auto) 0.07 K/uL (0.01-0.20); Immature Granulocytes % (auto) 0.6 %; Lymphocytes # (auto) 1.46 K/uL (1.2-3.4); Lymphocytes % (auto) 12.3 %; Mean Corpuscular Hemoglobin 29.7 pg (25.0-34.0); Mean Corpuscular Hgb Conc 33.6 g/dL (32.0-36.0); Mean Corpuscular Volume 88.4 fL (80.0-100.0); Mean Platelet Volume 10.3 fL (9.4-12.4); Monocytes # (auto) 1.42 K/uL (0.11-0.59); Monocytes % (auto) 11.9 %; Neutrophils # (auto) 8.81 K/uL (1.40-6.50); Neutrophils % (auto) 74.1 %; Platelet Count 170 K/uL (130-400); RDW Coefficient of Variation 14.6 % (11.5-14.5); RDW Standard Deviation 47.2 fL (36.4-46.3); Red Blood Count 5.76 M/uL (4.70-6.10); White Blood Count 11.89 K/ul (4.8-10.8)
--- NOTE | 2023-05-07 04:57 | CT Scan Report ---
Exam(s): CT ABDOMEN + PELVIS With Contrast IV Amt: 93 ML OPTIRAY 350 EXAM: CT Abdomen and Pelvis With Intravenous Contrast CLINICAL HISTORY: Reason for exam: poss obstructions. TECHNIQUE: Axial computed tomography images of the abdomen and pelvis with intravenous contrast. Automated exposure control was utilized for the study. A dose lowering technique was utilized adhering to the principles of ALARA. CONTRAST: Patient received 93 ML OPTIRAY 350 of IV contrast COMPARISON: CT 03/07/2021 FINDINGS: Mediastinum: Small hiatal hernia. ABDOMEN: Liver: Unremarkable. Gallbladder and bile ducts: Cholelithiasis without cholecystitis. Pancreas: Unremarkable. Spleen: Unremarkable. Adrenals: Unremarkable. Kidneys and ureters: Unremarkable. No obstructing stones. No hydronephrosis. Stomach and bowel: Fluid filled mildly prominent small bowel loops potentially representing low-grade obstruction. No abrupt transition point identified. Intact sutures within the sigmoid colon. PELVIS: Appendix: No findings to suggest acute appendicitis. Bladder: Unremarkable. Reproductive: Mild prostatomegaly. ABDOMEN and PELVIS: Intraperitoneal space: Unremarkable. No free air. No significant fluid collection. Bones/joints: No acute fracture. Soft tissues: Unremarkable. Vasculature: Aortobiiliac atherosclerotic calcifications. Lymph nodes: Unremarkable. IMPRESSION: 1. Fluid filled mildly prominent small bowel loops potentially representing low-grade obstruction. No abrupt transition point identified. 2. Small hiatal hernia. 3. Cholelithiasis without cholecystitis. Electronically signed by: Bladimir Ruby MD 05/07/23 04:55 AM
--- NOTE | 2023-05-07 07:02 | XRay Report ---
KUB CLINICAL HISTORY: Enteric tube placement. FINDINGS: An AP, portable, upright view of the lower chest and upper abdomen is correlated with abdom inal CT dated 05/07/2023. An enteric tube has been placed. The tip projects below the diaphragm over th e proximal stomach. The sideholes are at the level of the diaphragm. There is gaseous distention of t he small bowel loops indicating persistent obstruction. No free air is seen below the diaphragm. Atel ectasis is noted at the left lung base. IMPRESSION: 1. An enteric tube has been placed as above. The sideholes are at the level of the diaphragm and this should likely be advanced. 2. Persistent small bowel obstruction. Electronically signed by: Parth Yanez M.D. 05/07/2023 7:01 AM
--- NOTE | 2023-05-07 07:35 | History & Physical Report ---
Date of Service May 07, 2023 Assessment & Plan (1) SBO (small bowel obstruction): Plan: 77-year-old male past medical history significant for essential tremor, idiopathic polyneuropathy, hypertension, hyperlipidemia, BPH, sleep apnea history of diverticulitis s/p surgery and and also had surgery for bowel obstruction comes with abdominal pain and found to have small bowel obstruction Small bowel obstruction History of bowel obstruction in the past S/p NG tube ER notified surgery N.p.o. IV fluids, IV antiemetics as needed IV pain meds as needed Close monitor Follow labs Hypertension Holding his p.o. medications Plan IV labetalol as needed -Hyperlipidemia restart statin when able to BPH restart Flomax when able to Monitor for urinary retention Sleep apnea CPAP nightly Essential tremor History of propranolol and primidone when able to DVT prophylaxis Lovenox Disposition med/telemetry Full code Admission and Anticipated Discharge Date Admission Date: May 07, 2023 History of Present Illness Chief Complaint: Partial small bowel obstruction Primary Care Provider: Silverio Pride 77-year-old male past medical history significant for essential tremor, idiopathic polyneuropathy, hypertension, hyperlipidemia, BPH, sleep apnea history of diverticulitis s/p surgery and and also had surgery for bowel obstruction comes with abdominal pain and found to have small bowel obstruction. This is started with abdominal pain since Saturday getting progressively worse. Last bowel movement but is passing small amount of gas couple of days ago. Denies any headache. No blurred visions. No earache or runny nose. No sore throat or cough at this time. No chest pain or shortness of breath. Denies any nausea or vomiting. No bladder movements. Afebrile. Past medical history as mentioned above Past surgical history surgery for diverticulitis and surgery for bowel obstruction Family history significant for mother has dementia Social history says quit smoking 40 years ago alcohol occasional Allergies Allergy/AdvReac Type Severity Reaction Status Date / Time No Known Allergies Allergy Mild NONE Verified 10/11/22 13:41 Home Medications Medication Instructions Recorded Confirmed Type atorvastatin 10 mg tablet 10 mg PO DAILY 05/07/23 05/07/23 History primidone 50 mg tablet 50 mg PO TID 05/07/23 05/07/23 History propranolol 80 mg capsule,24 80 mg PO DAILY 05/07/23 05/07/23 History hr,extended release rabeprazole 20 mg tablet,delayed 20 mg PO BID 05/07/23 05/07/23 History release tadalafil 10 mg tablet 10 mg PO UD 05/07/23 05/07/23 History tamsulosin 0.4 mg capsule 0.4 mg PO HS 05/07/23 05/07/23 History testosterone cypionate 200 mg/mL 200 mg IM WK 05/07/23 05/07/23 History intramuscular oil triazolam 0.25 mg tablet 0.25 mg PO HS PRN Insomnia 05/07/23 05/07/23 History valacyclovir 500 mg tablet 500 mg PO DAILY 05/07/23 05/07/23 History valsartan 320 mg tablet 320 mg PO DAILY 05/07/23 05/07/23 History Past Med/Surg History Medical History Allergic rhinitis Carpal tunnel syndrome, bilateral Cervical radiculopathy Deviated septum Dizziness and giddiness Essential tremor Idiopathic polyneuropathy Lyme disease Malaise and fatigue Tarsal tunnel syndrome Tinea pedis Vertigo Family History Father Hypertension Grandfather Prostate cancer Social History Smoking Status: Former smoker Do You Dip or Chew Tobacco: No; Hx Alcohol Use: No Hx Substance Use: No Preferred Language: Yi Communication Ability: Effective Visual Impairment: No Limitations Hearing Ability: Normal Medical Physics Teacher Required: No Beliefs That Will Affect Care: None marital status: Current Living Situation: Spouse current occupational status: employed 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 ENT- oropharynx clear Neck- supple, no JVD. Lungs- clear to auscultation and percussion no added sounds Heart- regular rate and rhythm; no murmur, no gallop. Abdomen-sluggish bowel sounds, mild diffuse tender, distended Extremities- no pretibial edema, no erythema seen. Neuro- alert, oriented x 3; PERRL, EOMI; no facial palsy; no dysarthria; non focal. Skin- warm & dry Results & Data Results & Data Vital Signs (Past 12 Hours) Vital Signs Temp Pulse Pulse Resp BP BP BP 05/07/23 06:58 36.4 C L 75 16 214/110 H 198/106 H 05/07/23 06:00 70 18 05/07/23 06:00 191/102 H 05/07/23 05:00 70 16 05/07/23 05:00 185/96 H 05/07/23 04:00 74 20 05/07/23 04:00 176/94 H 05/07/23 03:16 77 05/07/23 03:19 78 18 167/101 H 05/07/23 02:54 36.6 C 90 20 161/100 H Pulse Ox O2 Del Method 05/07/23 06:58 97 Room Air 05/07/23 06:00 95 05/07/23 06:00 05/07/23 05:00 96 05/07/23 05:00 05/07/23 04:00 95 05/07/23 04:00 05/07/23 03:16 05/07/23 03:19 93 05/07/23 02:54 99 Room Air Diagnostic Findings Laboratory Results WBC 11.89 K/ul (4.8-10.8) H 05/07/23 03:25 RBC 5.76 M/uL (4.70-6.10) 05/07/23 03:25 Hgb 17.1 g/dl (14.0-18.0) 05/07/23 03:25 Hct 50.9 % (42.0-52.0) 05/07/23 03:25 MCV 88.4 fL (80.0-100.0) 05/07/23 03:25 MCH 29.7 pg (25.0-34.0) 05/07/23 03:25 MCHC 33.6 g/dL (32.0-36.0) 05/07/23 03:25 RDW Std Deviation 47.2 fL (36.4-46.3) H 05/07/23 03:25 RDW Coeff of Rosario 14.6 % (11.5-14.5) H 05/07/23 03:25 Plt Count 170 K/uL (130-400) 05/07/23 03:25 MPV 10.3 fL (9.4-12.4) 05/07/23 03:25 Immature Gran % (Auto) 0.6 % 05/07/23 03:25 Neut % (Auto) 74.1 % 05/07/23 03:25 Lymph % (Auto) 12.3 % 05/07/23 03:25 [place] % (Auto) 11.9 % 05/07/23 03:25 Eos % (Auto) 0.7 % 05/07/23 03:25 Baso % (Auto) 0.4 % 05/07/23 03:25 Neut # (Auto) 8.81 K/uL (1.40-6.50) H 05/07/23 03:25 Lymph # (Auto) 1.46 K/uL (1.2-3.4) 05/07/23 03:25 [place] # (Auto) 1.42 K/uL (0.11-0.59) H 05/07/23 03:25 Eos # (Auto) 0.08 K/uL (0-0.50) 05/07/23 03:25 Baso # (Auto) 0.05 K/uL (0-0.2) 05/07/23 03:25 Immature Gran # (Auto) 0.07 K/uL (0.01-0.20) 05/07/23 03:25 Sodium 136 mmol/L (136-145) 05/07/23 03:25 Potassium 3.9 mmol/L (3.5-5.1) 05/07/23 03:25 Chloride 103 mmol/L (98-107) 05/07/23 03:25 Carbon Dioxide 25 mmol/L (21-32) 05/07/23 03:25 Anion Gap 8 (3-11) 05/07/23 03:25 BUN 23 mg/dl (6-23) 05/07/23 03:25 Creatinine 1.19 mg/dl (0.6-1.4) 05/07/23 03:25 Est Cr Clr Drug Dosing 63.9 ml/min 05/07/23 03:25 Est GFR ( Amer) 68.4 ml/min 05/07/23 03:25 Est GFR (Non-Af Amer) 59.0 ml/min 05/07/23 03:25 BUN/Creatinine Ratio 19.3 (10-20) 05/07/23 03:25 Glucose 119 mg/dl (70-99(Fasting)) H 05/07/23 03:25 Calcium 9.2 mg/dl (8.6-10.3) 05/07/23 03:25 Magnesium 1.7 mg/dl (1.7-2.4) 05/07/23 03:25 Total Bilirubin 0.7 mg/dl (0.2-1.0) 05/07/23 03:25 AST 15 U/L (13-39) 05/07/23 03:25 ALT 16 U/L (7-52) 05/07/23 03:25 Alkaline Phosphatase 92 U/L (34-104) 05/07/23 03:25 Total Protein 6.9 gm/dl (6.0-8.3) 05/07/23 03:25 Albumin 3.6 gm/dl (3.4-5.0) 05/07/23 03:25 Globulin 3.3 gm/dl (2.5-4.0) 05/07/23 03:25 Albumin/Globulin Ratio 1.1 (0.9-2) 05/07/23 03:25 Lipase 14 U/L (11-82) 05/07/23 03:25 Impressions Abdomen/Pelvis CT 05/07/23 03:03 Exam(s): CT ABDOMEN + PELVIS With Contrast IV Amt: 93 ML OPTIRAY 350 EXAM: CT Abdomen and Pelvis With Intravenous Contrast CLINICAL HISTORY: Reason for exam: poss obstructions. TECHNIQUE: Axial computed tomography images of the abdomen and pelvis with intravenous contrast. Automated exposure control was utilized for the study. A dose lowering technique was utilized adhering to the principles of ALARA. CONTRAST: Patient received 93 ML OPTIRAY 350 of IV contrast COMPARISON: CT 03/07/2021 FINDINGS: Mediastinum: Small hiatal hernia. ABDOMEN: Liver: Unremarkable. Gallbladder and bile ducts: Cholelithiasis without cholecystitis. Pancreas: Unremarkable. Spleen: Unremarkable. Adrenals: Unremarkable. Kidneys and ureters: Unremarkable. No obstructing stones. No hydronephrosis. Stomach and bowel: Fluid filled mildly prominent small bowel loops potentially representing low-grade obstruction. No abrupt transition point identified. Intact sutures within the sigmoid colon. PELVIS: Appendix: No findings to suggest acute appendicitis. Bladder: Unremarkable. Reproductive: Mild prostatomegaly. ABDOMEN and PELVIS: Intraperitoneal space: Unremarkable. No free air. No significant fluid collection. Bones/joints: No acute fracture. Soft tissues: Unremarkable. Vasculature: Aortobiiliac atherosclerotic calcifications. Lymph nodes: Unremarkable. IMPRESSION: 1. Fluid filled mildly prominent small bowel loops potentially representing low-grade obstruction. No abrupt transition point identified. 2. Small hiatal hernia. 3. Cholelithiasis without cholecystitis. Electronically signed by: Bladimir Ruby MD 05/07/23 04:55 AM KUB X-Ray 05/07/23 05:12 KUB CLINICAL HISTORY: Enteric tube placement. FINDINGS: An AP, portable, upright view of the lower chest and upper abdomen is correlated with abdominal CT dated 05/07/2023. An enteric tube has been placed. T he tip projects below the diaphragm over the proximal stomach. The sideholes are at the level of the diaphragm. There is gaseous distention of the small bowel loops indicating persistent obstruction. No free air is seen below the diaphragm. Atelectasis is noted at the left lung base. IMPRESSION: 1. An enteric tube has been placed as above. The sideholes are at the level of the diaphragm and this should likely be advanced. 2. Persistent small bowel obstruction. Electronically signed by: Parth Yanez M.D. 05/07/2023 7:01 AM ECG Additional Comments: ECG normal sinus rhythm rate of 78. Left axis deviation Code Status & VTE Plan VTE Prophylaxis Plan VTE Prophylaxis will be ordered: Yes
[2023-05-07] MEDS ORDERED: NITROGLYCERIN SL 0.4 MG/TAB TAB SL PRN (07:36)
[2023-05-07] MEDS ORDERED: ONDANSETRON INJ 2 MG/ML 2 ML VIAL IV PRN (07:36)
[2023-05-07] MEDS ORDERED: HYDROmorphone INJ 0.5 MG/0.5 ML SYR IV PRN (07:36)
[2023-05-07] MEDS: LABETALOL HCL IV 5 MG/ML 20ML IV PRN ×2 (07:56→15:44)
[2023-05-07] MEDS: D5W AND NSS 1,000 ML IV SCH ×2 (07:57→19:20)
[2023-05-07 08:48] LABS: BUN Creatinine Ratio 17.2 (10-20); Calcium 9.4 mg/dl (8.6-10.3); Creatinine Clr Calc Pharmacy 62.4 ml/min; Est GFR (African American) 66.3 ml/min; Est GFR (Non-African American) 57.2 ml/min; Magnesium 1.7 mg/dl (1.7-2.4); Potassium 4.2 mmol/L (3.5-5.1)
[2023-05-07 08:56] LABS: Basophils # (auto) 0.04 K/uL (0-0.2); Basophils % (auto) 0.3 %; Eosinophils # (auto) 0.05 K/uL (0-0.50); Eosinophils % (auto) 0.4 %; Hematocrit (blood only) 51.2 % (42.0-52.0); Hemoglobin 16.8 g/dl (14.0-18.0); Immature Granulocytes # (auto) 0.05 K/uL (0.01-0.20); Immature Granulocytes % (auto) 0.4 %; Lymphocytes # (auto) 1.29 K/uL (1.2-3.4); Lymphocytes % (auto) 10.9 %; Mean Corpuscular Hemoglobin 29.5 pg (25.0-34.0); Mean Corpuscular Hgb Conc 32.8 g/dL (32.0-36.0); Mean Platelet Volume 10.4 fL (9.4-12.4); Monocytes # (auto) 1.41 K/uL (0.11-0.59); Monocytes % (auto) 11.9 %; Neutrophils # (auto) 9.04 K/uL (1.40-6.50); Neutrophils % (auto) 76.1 %; Platelet Count 165 K/uL (130-400); RDW Coefficient of Variation 14.7 % (11.5-14.5); RDW Standard Deviation 48.4 fL (36.4-46.3); Red Blood Count 5.69 M/uL (4.70-6.10); White Blood Count 11.88 K/ul (4.8-10.8)
[2023-05-07] MEDS: ENOXAPARIN INJ 40 MG/0.4 ML SYR SQ SCH (09:19)
--- NOTE | 2023-05-07 11:59 | Electrocardiogram Report ---
Test Reason : Blood Pressure : / mmHG Vent. Rate : 078 BPM Atrial Rate : 078 BPM P-R Int : 206 ms QRS Dur : 098 ms QT Int : 348 ms P-R-T Axes : 023 -45 067 degrees QTc Int : 396 ms Normal sinus rhythm Left axis deviation possible Inferior infarct (cited on or before 24-OCT-2015) Anterior infarct , age undetermined Abnormal ECG When compared with ECG of 28-OCT-2015 03:56, Anterior infarct is now Present Confirmed by Bi Drake ([id number]) on 05/07/2023 11:59:11 AM Referred By: REFERRED SELF Confirmed By:Zach Drake
--- NOTE | 2023-05-07 12:05 | Surgery Consultation ---
Date of Consultation May 07, 2023 Assessment & Plan (1) SBO (small bowel obstruction): (2) Abdominal distension: (3) Diffuse abdominal pain: Plan 77 year old male with history of ex lap sigmoid resection and colostomy for perforated diverticulitis in 2008 and then ex lap with lysis of adhesions in 2016 for SBO presented to ED with generalized abdominal pain, distention, and decrease bowel function since Saturday. CT scan with low grade obstruction without discrete transition point. NGT placed with minimal output (needs advanced per KUB if not already done) Plan: No acute surgical intervention required at this time. Continue conservative management: NPO for bowel rest, NGT to LIS, pain management and antiemetics as needed, IV fluids encouraged oob to chair and ambulation to increase GI motility continue medical management Patient re-evaluated with at 3:00 Still passing flatus, abdomen is no longer distended, pain improved minimal NGT output, has not been advanced per patient will plan to remove NGT okay for ice chips and sips for now encourage ambulation has seen and examined pt, see addendum for further recommendations/plan. Supervising Physician Co-Signing Physician Notes I have seen and examined the patient agree with the above assessment and plan. He has a small bowel obstruction but has begun passing flatus. His pain is improved and he is no longer distended. We will remove the NG tube. We will monitor his progress. May advance diet tomorrow. History of Present Illness Reason for Consultation: SBO Requesting Physician: Dr. Daren Dougherty MD Attending Physician: Darryl Paredes MD History of Present Illness Gallito is a 77 year-old male with past medical history of first degree av block, mitral regurgitation, aortic valve sclerosis, hypertension, GERD, cervical radiculopathy, sleep apnea, vertigo, lyme disease, BPH, perforated diverticulitis in 2009 with sigmoid colon resection and colostomy with reversal, SBO with ex lap and lysis of adhesions in 2016 presented to ED with increasing abdominal pain and distention with decrease bowel function since Saturday. No nausea or vomiting. No fevers or chills. Sigmoid resection for perforated diverticulitis with colostomy [place] [address] Jerome and then ex lap with lysis of adhesions by Dr. Cohen in 2016. No small bowel resected at that time. States his symptoms were similar to his last SBO. ER work-up showed mild leukocytosis, CT scan of abdomen and pelvis with IV Contrast showing mildly dilated and fluid filled small bowel loops with no d iscrete transition point likely representing low grade SBO. Currently states he is feeling a little better. NGT placed and abdomen does not feel as distended. Passing gas, no bowel movement. No nausea or vomiting. Allergies Allergy/AdvReac Type Severity Reaction Status Date / Time No Known Allergies Allergy Mild NONE Verified 10/11/22 13:41 Home Medications Medication Instructions Recorded Confirmed Type atorvastatin 10 mg tablet 10 mg PO DAILY 05/07/23 05/07/23 History primidone 50 mg tablet 50 mg PO TID 05/07/23 05/07/23 History propranolol 80 mg capsule,24 80 mg PO DAILY 05/07/23 05/07/23 History hr,extended release rabeprazole 20 mg tablet,delayed 20 mg PO BID 05/07/23 05/07/23 History release tadalafil 10 mg tablet 10 mg PO UD 05/07/23 05/07/23 History tamsulosin 0.4 mg capsule 0.4 mg PO HS 05/07/23 05/07/23 History testosterone cypionate 200 mg/mL 200 mg IM WK 05/07/23 05/07/23 History intramuscular oil triazolam 0.25 mg tablet 0.25 mg PO HS PRN Insomnia 05/07/23 05/07/23 History valacyclovir 500 mg tablet 500 mg PO DAILY 05/07/23 05/07/23 History valsartan 320 mg tablet 320 mg PO DAILY 05/07/23 05/07/23 History Patient History Medical History Allergic rhinitis Carpal tunnel syndrome, bilateral Cervical radiculopathy Deviated septum Dizziness and giddiness Essential tremor Idiopathic polyneuropathy Lyme disease Malaise and fatigue Tarsal tunnel syndrome Tinea pedis Vertigo Family History Father Hypertension Grandfather Prostate cancer Social History Smoking Status: Former smoker Do You Dip or Chew Tobacco: No; Hx Alcohol Use: No Hx Substance Use: No Preferred Language: Libyan Communication Ability: Effective Visual Impairment: No Limitations Hearing Ability: Normal Pick Up Truck Driver Required: No Beliefs That Will Affect Care: None marital status: Current Living Situation: Spouse current occupational status: employed 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 Feels Safe at Home: Yes Safety Concerns: Feels Safe At This Time Diet: regular Assistive Devices: None Review of Systems Review of Systems: All systems reviewed & are unremarkable except as noted in HPI & below Physical Exam Constitutional: WD/WN, vitals as above + obese, cooperative and comfortable; no acute distress and not ill appearing Neck: normal visual inspection and trachea midline Respiratory: normal respiratory effort, lungs clear to auscultation Cardiovascular: Rate/Rhythm: regular rate and regular rhythm Heart Sounds: normal S1, normal S2 and + murmur Gastrointestinal (Abdomen): Inspection/Auscultation: abdomen normal to inspection, + abdomen distended (mild distention), normal bowel sounds and + abdominal surgical scar (midline laparotomy scar) Percussion/Palpation: + abdomen tender ( mid abdomen and RLQ) and abdomen soft; no guarding, abdomen not rigid and abdomen not firm NGT with clear slightly bilious output in canister about 200 cc Skin: no rashes, warm and dry Psychiatric: A+Ox3, euthymic affect Results & Data Vital Signs (Past 12 Hours) Vital Signs Temp Pulse Pulse Pulse Resp BP BP 05/07/23 11:48 36.5 C 71 16 192/100 H 05/07/23 07:23 75 05/07/23 08:11 67 157/84 H 05/07/23 08:21 05/07/23 07:56 78 05/07/23 07:46 36.4 C L 77 18 05/07/23 06:58 36.4 C L 75 16 214/110 H 05/07/23 06:00 70 18 05/07/23 06:00 191/102 H 05/07/23 05:00 70 16 05/07/23 05:00 185/96 H 05/07/23 04:00 74 20 05/07/23 04:00 176/94 H 05/07/23 03:16 77 05/07/23 03:19 78 18 167/101 H 05/07/23 02:54 36.6 C 90 20 161/100 H BP Pulse Ox O2 Del Method 05/07/23 11:48 94 Room Air 05/07/23 07:23 05/07/23 08:11 05/07/23 08:21 157/84 H 05/07/23 07:56 05/07/23 07:46 189/105 H 94 Room Air 05/07/23 06:58 198/106 H 97 Room Air 05/07/23 06:00 95 05/07/23 06:00 05/07/23 05:00 96 05/07/23 05:00 05/07/23 04:00 95 05/07/23 04:00 05/07/23 03:16 05/07/23 03:19 93 05/07/23 02:54 99 Room Air Laboratory Results 05/07/23 05/07/23 05/07/23 Range/Units 07:48 07:48 03:25 WBC 11.88 H (4.8-10.8) K/ul RBC 5.69 (4.70-6.10) M/uL Hgb 16.8 (14.0-18.0) g/dl Hct 51.2 (42.0-52.0) % MCV 90.0 (80.0-100.0) fL MCH 29.5 (25.0-34.0) pg MCHC 32.8 (32.0-36.0) g/dL RDW Std Deviation 48.4 H (36.4-46.3) fL RDW Coeff of Rosario 14.7 H (11.5-14.5) % Plt Count 165 (130-400) K/uL MPV 10.4 (9.4-12.4) fL Immature Gran % (Auto) 0.4 % Neut % (Auto) 76.1 % Lymph % (Auto) 10.9 % Warren % (Auto) 11.9 % Eos % (Auto) 0.4 % Baso % (Auto) 0.3 % Neut # (Auto) 9.04 H (1.40-6.50) K/uL Lymph # (Auto) 1.29 (1.2-3.4) K/uL Warren # (Auto) 1.41 H (0.11-0.59) K/uL Eos # (Auto) 0.05 (0-0.50) K/uL Baso # (Auto) 0.04 (0-0.2) K/uL Immature Gran # (Auto) 0.05 (0.01-0.20) K/uL Sodium 136 136 (136-145) mmol/L Potassium 4.2 3.9 (3.5-5.1) mmol/L Chloride 102 103 (98-107) mmol/L Carbon Dioxide 29 25 (21-32) mmol/L Anion Gap 5 8 (3-11) BUN 21 23 (6-23) mg/dl Creatinine 1.22 1.19 (0.6-1.4) mg/dl Est Cr Clr Drug Dosing 62.4 63.9 ml/min Est GFR ( Amer) 66.3 68.4 ml/min Est GFR (Non-Af Amer) 57.2 59.0 ml/min BUN/Creatinine Ratio 17.2 19.3 (10-20) Glucose 97 119 H (70-99(Fasting)) mg/dl Calcium 9.4 9.2 (8.6-10.3) mg/dl Magnesium 1.7 1.7 (1.7-2.4) mg/dl Total Bilirubin 0.7 (0.2-1.0) mg/dl AST 15 (13-39) U/L ALT 16 (7-52) U/L Alkaline Phosphatase 92 (34-104) U/L Total Protein 6.9 (6.0-8.3) gm/dl Albumin 3.6 (3.4-5.0) gm/dl Globulin 3.3 (2.5-4.0) gm/dl Albumin/Globulin Ratio 1.1 (0.9-2) Lipase 14 (11-82) U/L 05/07/23 Range/Units 03:25 WBC 11.89 H (4.8-10.8) K/ul RBC 5.76 (4.70-6.10) M/uL Hgb 17.1 (14.0-18.0) g/dl Hct 50.9 (42.0-52.0) % MCV 88.4 (80.0-100.0) fL MCH 29.7 (25.0-34.0) pg MCHC 33.6 (32.0-36.0) g/dL RDW Std Deviation 47.2 H (36.4-46.3) fL RDW Coeff of Rosario 14.6 H (11.5-14.5) % Plt Count 170 (130-400) K/uL MPV 10.3 (9.4-12.4) fL Immature Gran % (Auto) 0.6 % Neut % (Auto) 74.1 % Lymph % (Auto) 12.3 % Warren % (Auto) 11.9 % Eos % (Auto) 0.7 % Baso % (Auto) 0.4 % Neut # (Auto) 8.81 H (1.40-6.50) K/uL Lymph # (Auto) 1.46 (1.2-3.4) K/uL Warren # (Auto) 1.42 H (0.11-0.59) K/uL Eos # (Auto) 0.08 (0-0.50) K/uL Baso # (Auto) 0.05 (0-0.2) K/uL Immature Gran # (Auto) 0.07 (0.01-0.20) K/uL Sodium (136-145) mmol/L Potassium (3.5-5.1) mmol/L Chloride (98-107) mmol/L Carbon Dioxide (21-32) mmol/L Anion Gap (3-11) BUN (6-23) mg/dl Creatinine (0.6-1.4) mg/dl Est Cr Clr Drug Dosing ml/min Est GFR ( Amer) ml/min Est GFR (Non-Af Amer) ml/min BUN/Creatinine Ratio (10-20) Glucose (70-99(Fasting)) mg/dl Calcium (8.6-10.3) mg/dl Magnesium (1.7-2.4) mg/dl Total Bilirubin (0.2-1.0) mg/dl AST (13-39) U/L ALT (7-52) U/L Alkaline Phosphatase (34-104) U/L Total Protein (6.0-8.3) gm/dl Albumin (3.4-5.0) gm/dl Globulin (2.5-4.0) gm/dl Albumin/Globulin Ratio (0.9-2) Lipase (11-82) U/L Diagnostic Findings Exam(s): CT ABDOMEN + PELVIS With Contrast IV Amt: 93 ML OPTIRAY 350 EXAM: CT Abdomen and Pelvis With Intravenous Contrast CLINICAL HISTORY: Reason for exam: poss obstructions. TECHNIQUE: Axial computed tomography images of the abdomen and pelvis with intravenous contrast. Automated exposure control was utilized for the study. A dose lowering technique was utilized adhering to the principles of ALARA. CONTRAST: Patient received 93 ML OPTIRAY 350 of IV contrast COMPARISON: CT 03/07/2021 FINDINGS: Mediastinum: Small hiatal hernia. ABDOMEN: Liver: Unremarkable. Gallbladder and bile ducts: Cholelithiasis without cholecystitis. Pancreas: Unremarkable. Spleen: Unremarkable. Adrenals: Unremarkable. Kidneys and ureters: Unremarkable. No obstructing stones. No hydronephrosis. Stomach and bowel: Fluid filled mildly prominent small bowel loops potentially representing low-grade obstruction. No abrupt transition point identified. Intact sutures within the sigmoid colon. PELVIS: Appendix: No findings to suggest acute appendicitis. Bladder: Unremarkable. Reproductive: Mild prostatomegaly. ABDOMEN and PELVIS: Intraperitoneal space: Unremarkable. No free air. No significant fluid collection. Bones/joints: No acute fracture. Soft tissues: Unremarkable. Vasculature: Aortobiiliac atherosclerotic calcifications. Lymph nodes: Unremarkable. IMPRESSION: 1. Fluid filled mildly prominent small bowel loops potentially representing low-grade obstruction. No abrupt transition point identified. 2. Small hiatal hernia. 3. Cholelithiasis without cholecystitis. KUB CLINICAL HISTORY: Enteric tube placement. FINDINGS: An AP, portable, upright view of the lower chest and upper abdomen is correlated with abdominal CT dated 05/07/2023. An enteric tube has been placed. The tip projects below the diaphragm over the proximal stomach. The sideholes are at the level of the diaphragm. There is gaseous distention of the small bowel loops indicating persistent obstruction. No free air is seen below the diaphragm. Atelectasis is noted at the left lung base. IMPRESSION: 1. An enteric tube has been placed as above. The sideholes are at the level of the diaphragm and this should likely be advanced. 2. Persistent small bowel obstruction.
--- NOTE | 2023-05-07 14:46 | Hospitalist Progress Note ---
Date of Service May 07, 2023 Assessment & Plan (1) SBO (small bowel obstruction): Plan: Patient is a 77 yr male with H/O Essential tremor, idiopathic polyneuropathy, hypertension, hyperlipidemia, BPH, sleep apnea history of diverticulitis s/p surgery and and also had surgery for bowel obstruction comes with abdominal pain and found to have small bowel obstruction Small bowel obstruction H/O perforated diverticulitis S/P sigmoid resection and colostomy in 2008 H/O Bowel obstruction S/P lysis of adhesions in 2015 --CT ABD:Fluid filled mildly prominent small bowel loops potentially representing low-grade obstruction. No abrupt transition point identified. Small hiatal hernia.Cholelithiasis without cholecystitis. -- Continue conservative management with bowel rest, IV fluids, NG tube to low intermittent suction Minimize IV narcotics as able Appreciate surgery input Hypertension Hold PO meds IV labetalol as needed Hyperlipidemia Restart statin as able BPH Restart Flomax as able Monitor for urinary retention Sleep apnea CPAP HS Essential tremor Resume propranolol and primidone as able DVT Px: Lovenox SQ Code Status Full code Admission and Anticipated Discharge Date Admission Date: May 07, 2023 Subjective Patient is seen and examined at bedside Has been feeling better after placing NG tube Abdominal pain much improved Flatus, no bowel movement + Denies any nausea, vomiting, chest pain, dyspnea, dizziness No other complaints Review of Systems Review of Systems: All systems reviewed & are unremarkable except as noted in Subjective Physical Exam Physical Exam: Physical Exam: Vitals signs as noted above General Appearance:Moderately built and nourished, no apparent distress Head: normocephalic, Atraumatic, +NG tube Eyes: normal inspection, EOMI Neck: supple, Trachea midline Respiratory/Chest: Normal breath sounds, CTA, No accessory muscle use Cardiovascular: S1, S2, No murmur Abdomen/GI:Soft, Distended, Mild tender, Decreased Bowel sounds Extremities/Musculoskeletal:normal inspection, no edema Neurologic/Psych:AAOX3, grossly no focal neurological deficits Skin: normal color, warm Results & Data Results & Data Vital Signs (Past 12 Hours) Vital Signs Temp Pulse Pulse Pulse Resp BP BP 05/07/23 12:53 73 05/07/23 11:48 36.5 C 71 16 192/100 H 05/07/23 07:23 75 05/07/23 08:11 67 157/84 H 05/07/23 08:21 05/07/23 07:56 78 05/07/23 07:46 36.4 C L 77 18 05/07/23 06:58 36.4 C L 75 16 214/110 H 05/07/23 06:00 70 18 05/07/23 06:00 191/102 H 05/07/23 05:00 70 16 05/07/23 05:00 185/96 H 05/07/23 04:00 74 20 05/07/23 04:00 176/94 H 05/07/23 03:16 77 05/07/23 03:19 78 18 167/101 H 05/07/23 02:54 36.6 C 90 20 161/100 H BP Pulse Ox O2 Del Method 05/07/23 12:53 170/99 H 05/07/23 11:48 94 Room Air 05/07/23 07:23 05/07/23 08:11 05/07/23 08:21 157/84 H 05/07/23 07:56 05/07/23 07:46 189/105 H 94 Room Air 05/07/23 06:58 198/106 H 97 Room Air 05/07/23 06:00 95 05/07/23 06:00 05/07/23 05:00 96 05/07/23 05:00 05/07/23 04:00 95 05/07/23 04:00 05/07/23 03:16 05/07/23 03:19 93 05/07/23 02:54 99 Room Air Laboratory Results Short CBC 05/07/23 05/07/23 Range/Units 03:25 07:48 WBC 11.89 H 11.88 H (4.8-10.8) K/ul Hgb 17.1 16.8 (14.0-18.0) g/dl Hct 50.9 51.2 (42.0-52.0) % Plt Count 170 165 (130-400) K/uL BMP 05/07/23 05/07/23 03:25 07:48 Sodium 136 136 Potassium 3.9 4.2 Chloride 103 102 Carbon Dioxide 25 29 BUN 23 21 Creatinine 1.19 1.22 Glucose 119 H 97 Calcium 9.2 9.4 Liver Function 05/07/23 Range/Units 03:25 Total Bilirubin 0.7 (0.2-1.0) mg/dl AST 15 (13-39) U/L ALT 16 (7-52) U/L Alkaline Phosphatase 92 (34-104) U/L Albumin 3.6 (3.4-5.0) gm/dl
[2023-05-07] MEDS ORDERED: ENALAPRILAT 0.625 MG in SYRINGE 9.5 ML IV PRN (16:12)
[2023-05-07] MEDS ORDERED: Nursing to Pharmacy Communication SCH (19:45)
[2023-05-08] MEDS: D5W AND NSS 1,000 ML IV SCH (07:21)
[2023-05-08] MEDS: ENOXAPARIN INJ 40 MG/0.4 ML SYR SQ SCH (07:22)
[2023-05-08 08:08] LABS: Hematocrit (blood only) 47.2 % (42.0-52.0); Hemoglobin 15.7 g/dl (14.0-18.0); Mean Corpuscular Hemoglobin 29.6 pg (25.0-34.0); Mean Corpuscular Hgb Conc 33.3 g/dL (32.0-36.0); Mean Corpuscular Volume 88.9 fL (80.0-100.0); Mean Platelet Volume 10.1 fL (9.4-12.4); Platelet Count 148 K/uL (130-400); RDW Standard Deviation 48.5 fL (36.4-46.3); Red Blood Count 5.31 M/uL (4.70-6.10); White Blood Count 7.45 K/ul (4.8-10.8)
[2023-05-08 08:25] LABS: BUN Creatinine Ratio 14.4 (10-20); Calcium 8.3 mg/dl (8.6-10.3); Creatinine Clr Calc Pharmacy 64.4 ml/min; Est GFR (African American) 69.1 ml/min; Est GFR (Non-African American) 59.6 ml/min
--- NOTE | 2023-05-08 12:19 | Surgery Progress Note ---
Date of Service May 08, 2023 Assessment & Plan (1) SBO (small bowel obstruction): (2) Abdominal distension: (3) Diffuse abdominal pain: Plan 77 year old male with history of ex lap sigmoid resection and colostomy for perforated diverticulitis in 2008 and then ex lap with lysis of adhesions in 2015 for SBO presented to ED with generalized abdominal pain, distention, and decrease bowel function since Saturday. CT scan with low grade obstruction without discrete transition point. NGT placed with minimal output (needs advanced per KUB if not already done) 05/08/2023 avss + return of bowel function no abd pain, n,v Plan: advance to clear liquids and then as tolerated encourage ambulation continue medical management our services signing off, please call with questions/concerns. Discussed with who agrees with above. Admission and Anticipated Discharge Date Admission Date: May 07, 2023 Subjective feeling better today no abdominal pain mild bloating no n,v passing gas and had formed bowel movement this morning Physical Exam Constitutional: WD/WN, vitals as above cooperative, comfortable and + overweight; no acute distress and not ill appearing Gastrointestinal (Abdomen): Inspection/Auscultation: abdomen normal to inspection; abdomen not distended Percussion/Palpation: abdomen soft; abdomen nontender, no guarding and abdomen not rigid Skin: no rashes, warm and dry Psychiatric: A+Ox3, euthymic affect Results & Data Vital Signs (Past 12 Hours) Vital Signs Temp Pulse Pulse Pulse Resp BP BP 05/08/23 11:08 36.4 C L 64 18 167/77 H 05/08/23 07:36 62 05/08/23 07:22 36.6 C 65 18 176/90 H 05/08/23 04:11 36.9 C 65 18 165/81 H Pulse Ox O2 Del Method 05/08/23 11:08 98 Room Air 05/08/23 07:36 05/08/23 07:22 94 Room Air 05/08/23 04:11 95 Room Air Laboratory Results 05/08/23 05/08/23 Range/Units 07:40 07:40 WBC 7.45 (4.8-10.8) K/ul RBC 5.31 (4.70-6.10) M/uL Hgb 15.7 (14.0-18.0) g/dl Hct 47.2 (42.0-52.0) % MCV 88.9 (80.0-100.0) fL MCH 29.6 (25.0-34.0) pg MCHC 33.3 (32.0-36.0) g/dL RDW Std Deviation 48.5 H (36.4-46.3) fL RDW Coeff of Rosario 15.0 H (11.5-14.5) % Plt Count 148 (130-400) K/uL MPV 10.1 (9.4-12.4) fL Sodium 137 (136-145) mmol/L Potassium 4.0 (3.5-5.1) mmol/L Chloride 106 (98-107) mmol/L Carbon Dioxide 26 (21-32) mmol/L Anion Gap 5 (3-11) BUN 17 (6-23) mg/dl Creatinine 1.18 (0.6-1.4) mg/dl Est Cr Clr Drug Dosing 64.4 ml/min Est GFR ( Amer) 69.1 ml/min Est GFR (Non-Af Amer) 59.6 ml/min BUN/Creatinine Ratio 14.4 (10-20) Glucose 104 H (70-99(Fasting)) mg/dl Calcium 8.3 L (8.6-10.3) mg/dl
[2023-05-08] MEDS: PROPRANOLOL HCL LA 80 MG CAPCR PO SCH (13:20)
[2023-05-08] MEDS: VALSARTAN 80 MG TAB PO SCH (13:25)
[2023-05-08] MEDS: PRIMIDONE 50 MG TAB PO SCH ×2 (13:25→20:52)
[2023-05-08] MEDS: PANTOprazole 40 MG TAB PO SCH ×2 (13:25→20:52)
--- NOTE | 2023-05-08 15:32 | Hospitalist Progress Note ---
Date of Service May 08, 2023 Assessment & Plan (1) SBO (small bowel obstruction): Plan: Patient is a 77 yr male with H/O Essential tremor, idiopathic polyneuropathy, hypertension, hyperlipidemia, BPH, sleep apnea history of diverticulitis s/p surgery and and also had surgery for bowel obstruction comes with abdominal pain and found to have small bowel obstruction Small bowel obstruction H/O perforated diverticulitis S/P sigmoid resection and colostomy in 2008 H/O Bowel obstruction S/P lysis of adhesions in 2015 --CT ABD:Fluid filled mildly prominent small bowel loops potentially representing low-grade obstruction. No abrupt transition point identified. Small hiatal hernia.Cholelithiasis without cholecystitis. -- Continue conservative management with bowel rest, IV fluids, NG tube to low intermittent suction Minimize IV narcotics as able Appreciate surgery input Had bowel movement today Tolerating clear liquid diet Hypertension Resume home medications IV labetalol as needed Hyperlipidemia Continue statin BPH Continue Flomax Monitor for urinary retention Sleep apnea CPAP HS Essential tremor Continue propranolol and primidone DVT Px: Lovenox SQ Code Status Full code Admission and Anticipated Discharge Date Admission Date: May 07, 2023 Subjective Patient is seen and examined at bedside States feeling much better today Had 1 bowel movement Abdominal pain much improved Discussed with patient's family at bedside Denies any nausea, vomiting, chest pain, dyspnea No other complaints Tolerating liquid diet Review of Systems Review of Systems: All systems reviewed & are unremarkable except as noted in Subjective Physical Exam Physical Exam: Physical Exam: Vitals signs as noted above General Appearance:Moderately built and nourished, no apparent distress Head: normocephalic, Atraumatic, +NG tube Eyes: normal inspection, EOMI Neck: supple, Trachea midline Respiratory/Chest: Normal breath sounds, CTA, No accessory muscle use Cardiovascular: S1, S2, No murmur Abdomen/GI:Firm, Distended, non tender, Decreased Bowel sounds Extremities/Musculoskeletal:normal inspection, no edema Neurologic/Psych:AAOX3, grossly no focal neurological deficits Skin: normal color, warm Results & Data Results & Data Vital Signs (Past 12 Hours) Vital Signs Temp Pulse Pulse Pulse Resp BP BP 05/08/23 11:08 36.4 C L 64 18 167/77 H 05/08/23 07:36 62 05/08/23 07:22 36.6 C 65 18 176/90 H 05/08/23 04:11 36.9 C 65 18 165/81 H Pulse Ox O2 Del Method 05/08/23 11:08 98 Room Air 05/08/23 07:36 05/08/23 07:22 94 Room Air 05/08/23 04:11 95 Room Air Laboratory Results Short CBC 05/08/23 Range/Units 07:40 WBC 7.45 (4.8-10.8) K/ul Hgb 15.7 (14.0-18.0) g/dl Hct 47.2 (42.0-52.0) % Plt Count 148 (130-400) K/uL BMP 05/08/23 07:40 Sodium 137 Potassium 4.0 Chloride 106 Carbon Dioxide 26 BUN 17 Creatinine 1.18 Glucose 104 H Calcium 8.3 L
[2023-05-08] MEDS ORDERED: TAMSULOSIN HCL 0.4 MG CAP PO SCH (21:00)
[2023-05-09] MEDS: D5W AND NSS 1,000 ML IV SCH (01:46)
[2023-05-09] MEDS: PRIMIDONE 50 MG TAB PO SCH ×2 (07:39→13:23)
[2023-05-09] MEDS: PANTOprazole 40 MG TAB PO SCH (07:40)
[2023-05-09] MEDS: PROPRANOLOL HCL LA 80 MG CAPCR PO SCH (07:40)
[2023-05-09] MEDS: VALSARTAN 80 MG TAB PO SCH (07:40)
[2023-05-09] MEDS: ENOXAPARIN INJ 40 MG/0.4 ML SYR SQ SCH (07:40)
[2023-05-09 08:11] LABS: Hematocrit (blood only) 48.3 % (42.0-52.0); Hemoglobin 15.8 g/dl (14.0-18.0); Mean Corpuscular Hemoglobin 29.6 pg (25.0-34.0); Mean Corpuscular Hgb Conc 32.7 g/dL (32.0-36.0); Mean Corpuscular Volume 90.4 fL (80.0-100.0); Mean Platelet Volume 10.1 fL (9.4-12.4); Platelet Count 147 K/uL (130-400); RDW Coefficient of Variation 14.8 % (11.5-14.5); RDW Standard Deviation 48.7 fL (36.4-46.3); Red Blood Count 5.34 M/uL (4.70-6.10); White Blood Count 8.89 K/ul (4.8-10.8)
[2023-05-09 08:43] LABS: BUN Creatinine Ratio 11.4 (10-20); Calcium 8.5 mg/dl (8.6-10.3); Creatinine Clr Calc Pharmacy 66.7 ml/min; Est GFR (Non-African American) 62.1 ml/min; Magnesium 1.8 mg/dl (1.7-2.4)
[2023-05-09] MEDS ORDERED: ATORVASTATIN 10 MG TAB PO SCH (09:00)
--- NOTE | 2023-05-09 12:38 | Hospitalist Progress Note ---
Date of Service May 09, 2023 Assessment & Plan (1) SBO (small bowel obstruction): Plan: Patient is a 77 yr male with H/O Essential tremor, idiopathic polyneuropathy, hypertension, hyperlipidemia, BPH, sleep apnea history of diverticulitis s/p surgery and and also had surgery for bowel obstruction comes with abdominal pain and found to have small bowel obstruction Small bowel obstruction H/O perforated diverticulitis S/P sigmoid resection and colostomy in 2008 H/O Bowel obstruction S/P lysis of adhesions in 2015 --CT ABD:Fluid filled mildly prominent small bowel loops potentially representing low-grade obstruction. No abrupt transition point identified. Small hiatal hernia.Cholelithiasis without cholecystitis. -- Continue conservative management with bowel rest, IV fluids, NG tube to low intermittent suction Minimize IV narcotics as able Appreciate surgery input Had multiple bowel movements Advance to low fiber diet today Plan to discharge home if tolerates diet Hypertension Continue home medications IV labetalol as needed Hyperlipidemia Continue statin BPH Continue Flomax Monitor for urinary retention Sleep apnea CPAP HS Essential tremor Continue propranolol and primidone DVT Px: Lovenox SQ Code Status Full code Admission and Anticipated Discharge Date Admission Date: May 07, 2023 Subjective Patient is seen and examined at bedside Reports having multiple bowel movements Denies any abdominal pain today Tolerating current diet Denies any nausea, vomiting, chest pain, dyspnea Review of Systems Review of Systems: All systems reviewed & are unremarkable except as noted in Subjective Physical Exam Physical Exam: Physical Exam: Vitals signs as noted above General Appearance:Moderately built and nourished, no apparent distress Head: normocephalic, Atraumatic, +NG tube Eyes: normal inspection, EOMI Neck: supple, Trachea midline Respiratory/Chest: Normal breath sounds, CTA, No accessory muscle use Cardiovascular: S1, S2, No murmur Abdomen/GI:Soft, mildly distended, non tender, + Bowel sounds Extremities/Musculoskeletal:normal inspection, no edema Neurologic/Psych:AAOX3, grossly no focal neurological deficits Skin: normal color, warm Results & Data Results & Data Vital Signs (Past 12 Hours) Vital Signs Temp Pulse Pulse Resp BP Pulse Ox O2 Del Method 05/09/23 11:57 37 C 56 L 18 170/89 H 94 Room Air 05/09/23 07:44 36.7 C 62 18 178/85 H 94 Room Air 05/09/23 07:00 54 L 05/09/23 03:20 61 05/09/23 03:19 37 C 63 18 177/88 H 96 Room Air Laboratory Results Short CBC 05/09/23 Range/Units 07:05 WBC 8.89 (4.8-10.8) K/ul Hgb 15.8 (14.0-18.0) g/dl Hct 48.3 (42.0-52.0) % Plt Count 147 (130-400) K/uL BMP 05/09/23 07:05 Sodium 137 Potassium 4.0 Chloride 107 Carbon Dioxide 25 BUN 13 Creatinine 1.14 Glucose 87 Calcium 8.5 L
--- NOTE | 2023-05-09 13:52 | Discharge Summary ---
Date of Service May 09, 2023 Admission HPI Per Admitting Provider 77-year-old male past medical history significant for essential tremor, idiopathic polyneuropathy, hypertension, hyperlipidemia, BPH, sleep apnea history of diverticulitis s/p surgery and and also had surgery for bowel obstruction comes with abdominal pain and found to have small bowel obstruction. This is started with abdominal pain since Saturday getting progressively worse. Last bowel movement but is passing small amount of gas couple of days ago. Denies any headache. No blurred visions. No earache or runny nose. No sore throat or cough at this time. No chest pain or shortness of breath. Denies any nausea or vomiting. No bladder movements. Afebrile. Past medical history as mentioned above Past surgical history surgery for diverticulitis and surgery for bowel obstruction Family history significant for mother has dementia Social history says quit smoking 40 years ago alcohol occasional Admission Exam Per Admitting Provider General- Not in distress Head- atraumatic Eyes- PERRL. ENT- oropharynx clear Neck- supple, no JVD. Lungs- clear to auscultation and percussion no added sounds Heart- regular rate and rhythm; no murmur, no gallop. Abdomen-sluggish bowel sounds, mild diffuse tender, distended Extremities- no pretibial edema, no erythema seen. Neuro- alert, oriented x 3; PERRL, EOMI; no facial palsy; no dysarthria; non focal. Skin- warm & dry Principal Diagnosis Small bowel obstruction Hypertension Discharge Data Allergies Allergy/AdvReac Type Severity Reaction Status Date / Time No Known Allergies Allergy Mild NONE Verified 10/11/22 13:41 Consultations 05/07/23 05:10 ED Decision to Admit Stat 05/07/23 08:00 Consult Gastroenterology Routine Procedures Performed Laboratory Results WBC 8.89 K/ul (4.8-10.8) 05/09/23 07:05 RBC 5.34 M/uL (4.70-6.10) 05/09/23 07:05 Hgb 15.8 g/dl (14.0-18.0) 05/09/23 07:05 Hct 48.3 % (42.0-52.0) 05/09/23 07:05 MCV 90.4 fL (80.0-100.0) 05/09/23 07:05 MCH 29.6 pg (25.0-34.0) 05/09/23 07:05 MCHC 32.7 g/dL (32.0-36.0) 05/09/23 07:05 RDW Std Deviation 48.7 fL (36.4-46.3) H 05/09/23 07:05 RDW Coeff of Rosario 14.8 % (11.5-14.5) H 05/09/23 07:05 Plt Count 147 K/uL (130-400) 05/09/23 07:05 MPV 10.1 fL (9.4-12.4) 05/09/23 07:05 Immature Gran % (Auto) 0.4 % 05/07/23 07:48 Neut % (Auto) 76.1 % 05/07/23 07:48 Lymph % (Auto) 10.9 % 05/07/23 07:48 Divide % (Auto) 11.9 % 05/07/23 07:48 Eos % (Auto) 0.4 % 05/07/23 07:48 Baso % (Auto) 0.3 % 05/07/23 07:48 Neut # (Auto) 9.04 K/uL (1.40-6.50) H 05/07/23 07:48 Lymph # (Auto) 1.29 K/uL (1.2-3.4) 05/07/23 07:48 Divide # (Auto) 1.41 K/uL (0.11-0.59) H 05/07/23 07:48 Eos # (Auto) 0.05 K/uL (0-0.50) 05/07/23 07:48 Baso # (Auto) 0.04 K/uL (0-0.2) 05/07/23 07:48 Immature Gran # (Auto) 0.05 K/uL (0.01-0.20) 05/07/23 07:48 Sodium 137 mmol/L (136-145) 05/09/23 07:05 Potassium 4.0 mmol/L (3.5-5.1) 05/09/23 07:05 Chloride 107 mmol/L (98-107) 05/09/23 07:05 Carbon Dioxide 25 mmol/L (21-32) 05/09/23 07:05 Anion Gap 5 (3-11) 05/09/23 07:05 BUN 13 mg/dl (6-23) 05/09/23 07:05 Creatinine 1.14 mg/dl (0.6-1.4) 05/09/23 07:05 Est Cr Clr Drug Dosing 66.7 ml/min 05/09/23 07:05 Est GFR ( Amer) 72.0 ml/min 05/09/23 07:05 Est GFR (Non-Af Amer) 62.1 ml/min 05/09/23 07:05 BUN/Creatinine Ratio 11.4 (10-20) 05/09/23 07:05 Glucose 87 mg/dl (70-99(Fasting)) 05/09/23 07:05 Calcium 8.5 mg/dl (8.6-10.3) L 05/09/23 07:05 Magnesium 1.8 mg/dl (1.7-2.4) 05/09/23 07:05 Total Bilirubin 0.7 mg/dl (0.2-1.0) 05/07/23 03:25 AST 15 U/L (13-39) 05/07/23 03:25 ALT 16 U/L (7-52) 05/07/23 03:25 Alkaline Phosphatase 92 U/L (34-104) 05/07/23 03:25 Total Protein 6.9 gm/dl (6.0-8.3) 05/07/23 03:25 Albumin 3.6 gm/dl (3.4-5.0) 05/07/23 03:25 Globulin 3.3 gm/dl (2.5-4.0) 05/07/23 03:25 Albumin/Globulin Ratio 1.1 (0.9-2) 05/07/23 03:25 Lipase 14 U/L (11-82) 05/07/23 03:25 Impressions Abdomen/Pelvis CT 05/07/23 03:03 Exam(s): CT ABDOMEN + PELVIS With Contrast IV Amt: 93 ML OPTIRAY 350 EXAM: CT Abdomen and Pelvis With Intravenous Contrast CLINICAL HISTORY: Reason for exam: poss obstructions. TECHNIQUE: Axial computed tomography images of the abdomen and pelvis with intravenous contrast. Automated exposure control was utilized for the study. A dose lowering technique was utilized adhering to the principles of ALARA. CONTRAST: Patient received 93 ML OPTIRAY 350 of IV contrast COMPARISON: CT 03/07/2021 FINDINGS: Mediastinum: Small hiatal hernia. ABDOMEN: Liver: Unremarkable. Gallbladder and bile ducts: Cholelithiasis without cholecystitis. Pancreas: Unremarkable. Spleen: Unremarkable. Adrenals: Unremarkable. Kidneys and ureters: Unremarkable. No obstructing stones. No hydronephrosis. Stomach and bowel: Fluid filled mildly prominent small bowel loops potentially representing low-grade obstruction. No abrupt transition point identified. Intact sutures within the sigmoid colon. PELVIS: Appendix: No findings to suggest acute appendicitis. Bladder: Unremarkable. Reproductive: Mild prostatomegaly. ABDOMEN and PELVIS: Intraperitoneal space: Unremarkable. No free air. No significant fluid collection. Bones/joints: No acute fracture. Soft tissues: Unremarkable. Vasculature: Aortobiiliac atherosclerotic calcifications. Lymph nodes: Unremarkable. IMPRESSION: 1. Fluid filled mildly prominent small bowel loops potentially representing low-grade obstruction. No abrupt transition point identified. 2. Small hiatal hernia. 3. Cholelithiasis without cholecystitis. Electronically signed by: Bladimir Ruby MD 05/07/23 04:55 AM KUB X-Ray 05/07/23 05:12 KUB CLINICAL HISTORY: Enteric tube placement. FINDINGS: An AP, portable, upright view of the lower chest and upper abdomen is correlated with abdominal CT dated 05/07/2023. An enteric tube has been placed. The tip projects below the diaphragm over the proximal stomach. The sideholes are at the level of the diaphragm. There is gaseous distention of the small bowel loops indicating persistent obstruction. No free air is seen below the diaphragm. Atelectasis is noted at the left lung base. IMPRESSION: 1. An enteric tube has been placed as above. The sideholes are at the level of the diaphragm and this should likely be advanced. 2. Persistent small bowel obstruction. Electronically signed by: Parth Yanez M.D. 05/07/2023 7:01 AM Ordered Studies 05/07/23 03:03 CT abd pelvis IV con only Stat Hospital Course (1) SBO (small bowel obstruction): Patient is a 77 yr male with H/O Essential tremor, idiopathic polyneuropathy, hypertension, hyperlipidemia, BPH, sleep apnea history of diverticulitis s/p surgery and and also had surgery for bowel obstruction comes with abdominal pain and found to have small bowel obstruction Small bowel obstruction H/O perforated diverticulitis S/P sigmoid resection and colostomy in 2008 H/O Bowel obstruction S/P lysis of adhesions in 2016 --CT ABD:Fluid filled mildly prominent small bowel loops potentially representing low-grade obstruction. No abrupt transition point identified. Small hiatal hernia.Cholelithiasis without cholecystitis. -- Continue conservative management with bowel rest, IV fluids, NG tube to low intermittent suction Minimize IV narcotics as able Appreciate surgery input Had multiple bowel movements Advance to low fiber diet--Tolerated with no issues Plan to discharge home today Hypertension Continue home medications IV labetalol as needed Hyperlipidemia Continue statin BPH Continue Flomax Monitor for urinary retention Sleep apnea CPAP HS Essential tremor Continue propranolol and primidone DVT Px: Lovenox SQ Code Status Full code Total Time Total Time Spent Total Time Spent (In Minutes): 55 minutes Discharge Plan Discharge Items Patient Disposition: Home - Self-Care Reason For Visit: PSBO Discharge Diagnosis: Small bowel obstruction Hypertension Condition on Discharge: Fair Activity: Per Instructions section Exercise/Sports: Gradually increase as tolerated Non-emergency contact: Primary Care Provider and Surgeon Call non-emergency contact if: you have any medication questions, your symptoms worsen, your pain is concerning for you and you have a fever Follow-up/Referrals: Silverio Pride PA-C [Primary Care Provider] - 05/14/23 9:00 am (With Dr Fowler) Diet: Heart Healthy and Low Fiber Addtl Attending Provider Instructions: Follow-up with your primary care physician Silverio Pride PA-C in 1 week Follow-up with your surgeon Dr. Charlie Miller in 3-4 weeks -- Continue low fiber diet for now until follow up with PCP/Surgery. Further dietary changes as per your physician Seek immediate medical attention if your symptoms reoccur or worsen Please take all medications as instructed on discharge list below. Please call if you have any questions or problems. You can reach a [facility] hospitalist on duty at [facility] 24 hours a day by calling [phone] Pending Studies at Discharge: No Stand-Alone Forms: My [facility] [employer], Smoking Cessation Medications and DC Order Prescriptions: Continued primidone 50 mg tablet 50 mg PO TID rabeprazole 20 mg tablet,delayed release (DR/EC) 20 mg PO BID triazolam 0.25 mg tablet 0.25 mg PO HS PRN (Reason: Insomnia) atorvastatin 10 mg tablet 10 mg PO DAILY valacyclovir 500 mg tablet 500 mg PO DAILY tamsulosin 0.4 mg capsule 0.4 mg PO HS propranolol 80 mg capsule,extended release 24hr 80 mg PO DAILY valsartan 320 mg tablet 320 mg PO DAILY testosterone cypionate 200 mg/mL oil 200 mg IM WK tadalafil 10 mg tablet 10 mg PO UD Rx Instructions: DIRECTED Discharge Orders: Discharge Order (Routine); Ordered 05/09/23 Ordered By: Darryl Muhammad/Other Patient Handouts: Low-Fiber Diet Admission Data Admit Date/Time: 05/07/23 05:52 Attending Provider: Darryl Paredes Admit Provider: Roberto Dougherty Primary Care Provider: Silverio Pride Other Providers: Roberto Dougherty ; Charlie Miller
--- NOTE | 2023-05-14 16:40 | Coding Query ---
CODING QUERY To promote full compliance with coding requirements relating to patient care, provider participation is requested in all cases of choral teacher uncertainty. Please assist us with the question(s) below: Coding Question(s): Based on the documentation in the medical record, this patient is being treated for or diagnosed with the diagnosis of small bowel obstruction. Other documentation in the medical record indicates the following: History of ex lap sigmoid resection and colostomy for perforated diverticulitis in 2008 and then ex lap with lysis of adhesions in 2016 for SBO presented to ED with generalized abdominal pain, distention, and decrease bowel function since Saturday. CT scan with low grade obstruction without discrete transition point. Based on your medical judgment, can you further clarify the diagnosis of small bowel obstruction and provide the underlying cause of these findings, if known. Your response can include none or not applicable. ( ) Small bowel obstruction, unspecified (x ) Small bowel obstruction likely due to adhesions ( ) Complete small bowel obstruction ( ) Partial small bowel obstruction ( ) Incomplete small bowel obstruction ( ) Other, please explain In responding to this request, please exercise your independent professional judgment. The fact that a question is asked does not imply that any particular diagnosis is desired or expected. Physician's Response(s): Thank you for your time, JAGRUTI Alves, [facility]PITALEdna
== END 2023-05-09 14:47 | disposition home or self-care (01) | DRG 390 ==
LOC: ED 02:51 → 2S 05:52 → 2N 21:28

== ENCOUNTER 2025-02-09 17:06 | Inpatient (IN) ==
[2025-02-09] MEDS ORDERED: POLYETHYLENE (MIRALAX) 17 GM PACK PO PRN (21:13)
[2025-02-09] MEDS ORDERED: ACETAMINOPHEN 325 MG TAB PO PRN (21:13)
[2025-02-09] MEDS ORDERED: ONDANSETRON INJ 2 MG/ML 2 ML VIAL IV PRN (21:13)
[2025-02-09] MEDS ORDERED: ALUMINUM/MAGNESIUM SUSP 30 ML UDC PO PRN (21:13)
--- NOTE | 2025-02-09 21:41 | History & Physical Report ---
Date of Service February 09, 2025 Assessment & Plan (1) Bilateral pulmonary embolism: (2) DVT (deep venous thrombosis): (3) Pneumonia: (4) Aortic stenosis: (5) Leukocytosis: (6) Hypertension: (7) GERD (gastroesophageal reflux disease): (8) Essential tremor: (9) BPH w urinary obs/LUTS: Plan 79 year old male with PMHx that includes HTN, HLD, aortic stenosis, essential tremor, BPH, and GERD presents as direct admit from [facility] after he was found to have a DVT of the RLE and bilateral PEs with imaging that noted concern for right heart strain: #Bilateral Pulmonary Emboli // #DVT RLE: -RLE venous duplex US: +acute occlusive DVT within right popliteal, peroneal and posterior tibial veins -CTA: multiple bilateral pulmonary emboli involving all lobes of both lungs, RV dilatation suggestive of right heart strain -PESI score falls into class III, intermediate risk -Lower suspicion for clinically significant right heart strain based on on clinical appearance, reassuring vitals, and negative trop/BNP/lactate - will evaluate further with TTE, pending -Patient started on therapeutic dose Lovenox at outside facility - continue Lovenox 1mg/kg Q12H. Based on history, appears to be an unprovoked event - consider indefinite anticoagulation following discharge. -Incentive spirometry Q4WA #Pneumonia: CTA: patchy airspace density of left lung base +Leukocytosis with WBC 13.75, o/w negative SIRS criteria Neg Covid/Flu/RSV tests at outside facility Continue Ceftriaxone and Azithromycin Dextromethorphan/Guaifenesin PRN for cough Duonebs Q6H PRN for wheezing/shortness of breath #HTN: Valsartan held on admission - consider restarting if patient remains hemodynamically stable and TTE shows reassuring right heart function. #HLD: continue Atorvastatin #Essential Tremor: continue Propranolol and Primidone #GERD: continue Protonix #BPH: continue Tamsulosin #?HSV ppx/chronic suppression: continue Valtrex Dispo: Admit PCU VTE ppx: Lovenox FEN/GI: HH diet Full Code Admission and Anticipated Discharge Date Admission Date: February 09, 2025 History of Present Illness Primary Care Provider: Silverio Pride 79 year old male with PMHx that includes HTN, HLD, aortic stenosis, essential tremor, BPH, and GERD presents as direct admit from [facility] after he was found to have a DVT of the RLE and bilateral PEs with imaging that noted concern for right heart strain. Patient notes that he specifically requested transfer to [facility]. Patient states that he has had a cough and generalized malaise/fatigue/weakness for the past 4 weeks. Reports right calf soreness for past 3-4 days, no associated swelling or erythema - based on this, PCP recommended ED evaluation. Patient denies overt shortness of breath, chest pain or tightness, fevers/chills. Denies h/o previous DVT/PE. Denies current or previous cancers. Denies recent travel, though states that he has largely been immobile these past few weeks, has only been getting up to move between bed, couch, kitchen, and bathroom. Review of OSH documentation: Labs notable for leukocytosis with WBC count of 13.5, otherwise unremarkable. Neg trop and BNP. Neg Covid/flu/RSV. RLE venous duplex US: +acute occlusive DVT within right popliteal, peroneal and posterior tibial veins CTA: multiple bilateral pulmonary emboli involving all lobes of both lungs, RV dilatation suggestive of right heart strain, patchy airspace density of left lung base, likely infiltrate vs atelectasis. Patient started on therapeutic Lovenox (1mg/kg Q12H), Ceftriaxone, and Azithromycin - last dose of all three ~1600 on 02/09/25. Allergies Allergy/AdvReac Type Severity Reaction Status Date / Time No Known Allergies Allergy Mild NONE Verified 09/14/24 09:35 Home Medications Medication Instructions Recorded Confirmed Type rabeprazole 20 mg tablet,delayed 20 mg PO BID 05/07/23 09/14/24 History release tadalafil 10 mg tablet 10 mg PO UD 05/07/23 09/14/24 History tamsulosin 0.4 mg capsule 0.4 mg PO HS 05/07/23 09/14/24 History testosterone cypionate 200 mg/mL 200 mg IM WK 05/07/23 09/14/24 History intramuscular oil triazolam 0.25 mg tablet 0.25 mg PO HS PRN Insomnia 05/07/23 09/14/24 History valacyclovir 500 mg tablet 500 mg PO DAILY 05/07/23 09/14/24 History atorvastatin 20 mg tablet 20 mg PO DAILY 03/09/24 09/14/24 History sildenafil (pulm.hypertension) 20 100 mg PO ONCE PRN sexual activity 03/09/24 09/14/24 History mg tablet primidone 250 mg tablet 250 mg PO DAILY #90 tabs 09/14/24 09/14/24 Rx propranolol 80 mg capsule,24 80 mg PO DAILY #90 caps 09/14/24 09/14/24 Rx hr,extended release valsartan 320 mg tablet 160 mg PO DAILY 09/14/24 09/14/24 History Past Med/Surg History Problem List (Updated 02/10/25 @ 13:16 by Gilberto Fowler MD) Occult malignancy Pneumonia Bilateral pulmonary embolism DVT (deep venous thrombosis) Sciatica associated with disorder of lumbar spine Aortic stenosis On statin therapy Diffuse abdominal pain (Acute) SBO (small bowel obstruction) (Acute) Abdominal distension (Acute) Leukocytosis (Acute) LAFB (left anterior fascicular block) First degree atrioventricular block by electrocardiogram Cardiovascular event risk Abnormal ECG Mitral regurgitation Aortic valve sclerosis Hypertension (Chronic) History of diverticulitis (Chronic) GERD (gastroesophageal reflux disease) (Chronic) DDD (degenerative disc disease), cervical Partial small bowel obstruction Essential tremor (Chronic) Cervical radiculopathy (Chronic) Carpal tunnel syndrome, bilateral (Chronic) Left ankle pain Left ankle sprain Peroneal tendonitis of left lower extremity Flat foot Impotence Peptic reflux disease Testicular hypofunction Sleep apnea, obstructive BPH loc w urin obs/LUTS Sciatica Lyme disease Tingling Vertigo Vertebral artery stenosis BPH w urinary obs/LUTS Hypogonadism in male Urethral stricture Idiopathic polyneuropathy Medical History Tarsal tunnel syndrome Malaise and fatigue Deviated septum Dizziness and giddiness Vertigo Tinea pedis Allergic rhinitis Family History Father Hypertension Grandfather Prostate cancer Social History Smoking Status: Never smoker Second Hand Exposure: No; Do You Dip or Chew Tobacco: No; Tobacco Cessation Education Requested by Patient: No Hx Alcohol Use: No Hx Substance Use: No Preferred Language: Uzbek Communication Ability: Effective Visual Impairment: No Limitations Hearing Ability: Normal Manager Office Services Required: No Beliefs That Will Affect Care: None marital status: Current Living Situation: Spouse current occupational status: employed 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 Other Information That Helps Us Care for You: No Feels Safe at Home: Yes Safety Concerns: Feels Safe At This Time Diet: regular Assistive Devices: None Review of Systems Review of Systems: as per HPI Physical Exam Physical Exam: Constitutional: no acute distress HEENT: NCAT, no conjunctival injection CV: RRR, extremities well-perfused, no LE edema or erythema Resp: Coarse breath sounds in bilateral bases, +faint end expiratory wheezes GI: nondistended MSK: no gross deformities Skin: warm, dry, no rash appreciated Neuro: alert, oriented, no focal neurologic deficit appreciated Results & Data Results & Data Vital Signs (Past 12 Hours) Vital Signs Temp Pulse Resp BP Pulse Ox O2 Del Method 02/09/25 20:20 36.5 C 62 18 169/80 H 97 Room Air 02/09/25 20:00 Room Air Supervising Physician Co-Signing Physician Notes Patient seen and examined, chart reviewed, case discussed with Dr. Louis and I agree with the assessment and plan as above In brief, patient is a 79yo male with history of HTN, HLP, who is being transferred from [facility] due to RLE DVT and bilateral PEs with concern for right heart strain. Found to have acute occlusive DVT int he right popliteal, peroneal, posterior tibial veins CTA with multiple bilateral PE in all lobes of both lungs with RV dilation Patient given Lovenox prior to transfer Has remained HD stable with no respiratory distress On exam he is resting comfortably, NAD SKin - well perfused HEENT - No JVD, MMM Heart - +S1/S2, regular, no m/r/g Lungs - CTA Abd - soft, NT/ND Ext - warm, well perfused, no edema Labs and images reviewed Assessment/Plan 79yo male presenting with unprovoked RLE DVT with bilateral PEs. -Continue Lovenox anticoagulation -Check 2D echo -Possible PNA vs infarct - Continue Ceftriaxone and Azithromycin for now, symptomatic management -Remainder as above Resident Activity Tracking Resident Involvement: Resident Care Provided Care Provided: Adult [facility] Medicine (4) Aortic stenosis Cardiac valve disease etiology: etiology unspecified Qualified Code(s): I35.0 - Nonrheumatic aortic (valve) stenosis (5) Leukocytosis Leukocytosis type: unspecified Qualified Code(s): D72.829 - Elevated white blood cell count, unspecified
[2025-02-09 21:54] LABS: Basophils # (auto) 0.04 K/uL (0.00-0.20); Basophils % (auto) 0.3 %; Eosinophils # (auto) 0.01 K/uL (0.00-0.50); Eosinophils % (auto) 0.1 %; Hematocrit (blood only) 54.9 % (42.0-52.0); Immature Granulocytes # (auto) 0.08 K/uL (0.01-0.20); Immature Granulocytes % (auto) 0.6 %; Lymphocytes # (auto) 1.23 K/uL (1.20-3.40); Lymphocytes % (auto) 8.9 %; Mean Corpuscular Hemoglobin 30.4 pg (25.0-34.0); Mean Corpuscular Hgb Conc 32.8 g/dL (32.0-36.0); Mean Corpuscular Volume 92.6 fL (80.0-100.0); Monocytes # (auto) 1.24 K/uL (0.11-0.59); Neutrophils # (auto) 11.15 K/uL (1.40-6.50); Neutrophils % (auto) 81.1 %; Platelet Count 221 K/uL (130-400); RDW Coefficient of Variation 14.5 % (11.5-14.5); RDW Standard Deviation 47.9 fL (36.4-46.3); Red Blood Count 5.93 M/uL (4.70-6.10); White Blood Count 13.75 K/ul (4.8-10.8)
[2025-02-09] MEDS: ATORVASTATIN 20 MG TAB PO SCH (21:55)
[2025-02-09 22:31] LABS: Albumin Level 2.9 gm/dl (3.4-5.0); Bilirubin,Total 0.6 mg/dl (0.2-1.0); Calcium 8.4 mg/dl (8.6-10.3); Potassium 4.7 mmol/L (3.5-5.1)
[2025-02-09 22:37] LABS: Albumin Globulin Ratio 0.7 (0.9-2); BUN Creatinine Ratio 20.2 (10-20); Creatinine Clr Calc Pharmacy 60.6 ml/min; Globulin 3.9 gm/dl (2.5-4.0); Total Protein 6.8 gm/dl (6.0-8.3)
[2025-02-09] MEDS ORDERED: ALBUT/IPRATROP 3MG/0.5MG NEB 3 ML VIAL NEB PRN (23:22)
--- OUTSIDE RECORDS SUMMARY | 2025-02-10 02:55 | External Medical Summary | Summary of Care ---
Author Name Unknown Organization [facility] Address [address] [place] [address] Phone [phone] Care Team Providers Care Roving Frame Tender Name Role Phone Silverio Pride PA-C Primary Care Provide r Reason for Visit * Reason Onset Date Comments Cough Other Horse voice, sin us pressure Congestion Loss of Appetite Generalized Body Aches Fatigue Weakness, Generalized X 2 wks ag o Cold Symptoms 02/01/2025 Encounter Details Date Type Department Care Team (Latest Contact Info) Description 02/01/2025 1:45 PM EDT Convenient Care Visit [facility] [address] [place] [address] Kristy Garcias CRNP [address] [place] [address] Acute bronchitis, unspecified organism*; Wheezing; Acute cough Allergies No known active allergiesdocumented as of this encounter (statuses as of 02/02/2025) Medications ACIPHEX 20 MG PO TBEC one daily Active LISINOPRIL 20 MG PO TABS one tablet daily Active terbinafine (LAMISIL) 250 MG Tablet Take 1 Tablet by mouth in the morning and 1 Tablet before bedtime. Active Triazolam 0.25 MG Tablet Take 1 Tablet by mouth at bedtime. 0 04/24/20 17 Active MEDICAL INSTRUCTIONS Use as directed. CPAP on room air nightly as directed Active testosterone cypionate (DEPOTESTOSTERO NE CYPIONATE) 200 MG/ML injection Inject 50 mg into a large muscle once a week. Active ibuprofen (MOTRIN) 800 MG Tablet TAKE ONE BY MOUTH TWO TIMES A DAY NEEDED WITH FOOD FOR PAIN 1 10/09/19 Active Promethazine-DM 6.25-15 MG/5ML syrup TAKE 5 ML BY MOUTH EVERY 6 HOURS NEEDED FOR COUGH 0 10/09/19 Active propranolol CR (INDERAL LA) 80 MG CP24 Take 1 Capsule by mouth in the morning. 3 11/23/19 19 Active tamsulosin (FLOMAX) 0.4 MG Capsule TAKE ONE CAPSULE BY MOUTH EVERY NIGHT 5 01/01/20 19 Active valACYclovir (VALTREX) 500 MG Tablet Take 3 Tablets by mouth in the morning. 5 12/23/19 Active fluticasone (FLONASE) 50 MCG/ACT nasal spray 1 spray to each nostril twice per day after you use the saline rinses 1 Bottle 5 01/10/20 Active Additional Information Patient not taking.Reported on 02/01/2025 oxyCODONE (OXY IR) 5 MG immediate release tablet Take 1 Tab by mouth every 4 hours as needed for Pain. 5 Tab 09/02/20 Active Additional Information Patient not taking.Reported on 02/01/2025 silver sulfadiazine (SILVADENE) 1 % cream Apply topically to affected area daily. Apply to both first toes. Cover with dry bandage. Perform once daily. 50 g 04/21/20 Active Additional Information Patient not taking.Reported on 02/01/2025 sulfamethoxazol e-trimethoprim DS (BACTRIM DS) 800-160 MG per tablet Take 1 Tab by mouth 2 times a day. 14 Tab 04/28/20 Active Additional Information Patient not taking.Reported on 02/01/2025 Aspirin 81 MG Oral Tablet Delayed Release Take 1 Tablet by mouth in the morning. Active Beclomethasone Dipropionate 80 MCG/ACT Nasal Aerosol Solution (Qnasl) Administer into nostril 1 Puff 2 times a day . Active Chlorthalidone 25 MG Oral Tablet (Hygroton) Take 1 Tablet by mouth in the morning. Active Ipratropium [place] 0.03 % Nasal Solution (Atrovent) Administer into nostril 2 Sprays every 12 hours . Active Primidone 50 MG Oral Tablet (Mysoline) Take 1 Tablet by mouth in the morning and 1 Tablet at noon and 1 Tablet in the evening and 1 Tablet before bedtime. Active Tadalafil 5 MG Oral Tablet (Cialis) Take by mouth 5 mg daily as needed for Erectile Dysfunction. Active Valsartan 160 MG Oral Tablet (Diovan) Take 1 Tablet by mouth in the morning. Active Gabapentin 100 MG Oral Capsule (Neurontin) TAKE 1 CAPSULE BY MOUTH EVERY NIGHT FOR NEUROPATHY 04/03/20 Active metFORMIN HCl 500 MG Oral Tablet (Glucophage) Take 1 Tablet by mouth in the morning and 1 Tablet before bedtime. 04/03/20 22 Active Turmeric 500 MG Oral Capsule Take 1 Capsule by mouth in the morning. Active Beta Carotene 50035 UNIT Oral Capsule Take by mouth . Active Co Q 10 100 MG Oral Capsule Take by mouth . Active Glucosamine 750 MG Oral Tablet Take by mouth . Active Magnesium 400 MG Oral Capsule Take 1 Capsule by mouth in the morning. Active Vitamin A 4.5 MG (96225 UT) Oral Tablet Take by mouth . Active Vitamin D (Cholecalcifero l) 10 MCG (400 UNIT) Oral Capsule Take by mouth . Active Vitamin D3 1.25 MG (57271 UT) Oral Capsule Take 1 Capsule by mouth in the morning. Active Vitamin C 1000 MG Oral Tablet Take 1 Tablet by mouth in the morning. Active Zinc 50 MG Oral Tablet Take by mouth 50 mg in the morning. Active Meloxicam 15 MG Oral Tablet Take 1 Tablet by mouth in the morning. Active Atorvastatin Calcium 40 MG Oral Tablet (Lipitor) Take 0.5 Tablets by mouth. 12/03/19 24 Active Celecoxib 200 MG Oral Capsule (CeleBREX) TAKE 1 CAPSULE BY MOUTH DAILY NEEDED FOR JOINT PAIN Active chlorproMAZINE HCl 25 MG Oral Tablet (Thorazine) TAKE ONE TABLET THREE TIMES DAILY UNTIL HICCUPS SUBSIDE 01/05/20 25 Active Famotidine 40 MG Oral Tablet (Pepcid) take 1 tablet by mouth every day at night 12/27/19 25 Active Primidone 250 MG Oral Tablet (Mysoline) Take 1 Tablet by mouth in the morning. 12/13/19 25 Active Doxycycline Hyclate 100 MG Oral CapsuleIndicati ons:Acute bronchitis, unspecified organism Take 1 Capsule by mouth in the morning and 1 Capsule before bedtime. Do all this for 7 days. Take for 7 days. 14 Capsule 02/02/20 25 025 Active predniSONE 10 MG Oral Tablet (Deltasone)Lavern cations:Wheezin g,Acute cough Take 1 Tablet by mouth in the morning for 5 days. As directed. 5 Tablet 02/02/20 25 025 Active Benzonatate 100 MG Oral Capsule (Tessalon Perltala)Indicati ons:Acute cough Take 1 Capsule by mouth 3 times a day as needed for Cough for up to 7 days. Do not cut, crush, or chew. 21 Capsule 02/02/20 25 025 Active Albuterol Sulfate HFA 108 (90 Base) MCG/ACT Inhalation Aerosol Solution Inhale 2 Puffs by mouth every 6 hours as needed for Shortness of Breath, Cough or Wheezing. 6.7 g 02/02/20 25 Active VENTOLIN HFA 108 (90 Base) MCG/ACT inhaler INHALE 2 PUFFS BY MOUTH EVERY 4 TO 6 HOURS NEEDED FOR WHEEZING 5 11/17/19 19 025 Discontinued Ventolin HFA 108 (90 Base) MCG/ACT Inhalation Aerosol SolutionIndicat ions:Wheezing,A cute cough Inhale 2 Puffs by mouth every 4 hours as needed for Wheezing, Shortness of Breath or Cough. 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 documented as of this encounter (statuses as of 02/02/2025) Immunizations Name Administration Dates Next Due Pneumococcal Conjugate Vacc, 13 Valent (Prevnar) 09/30/2010 Seasonal Influenza, Quadrivalent, No Preserve, P eds 06/14/2017 Varicella Zoster Vaccine Adult (Zostavax) 2010 documented as of this encounter Social History Tobacco Use Types Packs/Day Years Used Date Smoking Tobacco: Former Cigarettes 1 20 0 09/30/1961 - 09/30/1981 Smokeless Tobacco: Never Tobacco Cessation:Counseling Given: Not Answered Comments:no passive smoke Alcohol Use Standard Drinks/Week Comments Yes 0 (1 standard drink = 0.6 oz pur e alcohol) Socially Sex and Gender Information Value Date Recorded Sex Assigned at Not on file Legal Sex Male 5:56 AM EST Gender Identity Not on file Sexual Orientation Not on file documented as of this encounter Last Filed Vital Signs Vital Sign Reading Time Taken Comments Blood Pressure 106/70 02/01/2025 2:03 PM EDT Pulse 76 02/01/2025 2:03 PM EDT Temperature 37.1 °C (98.8 °F) 02/01/2025 2:03 PM ED T Respiratory Rate 20 02/01/2025 2:03 PM EDT Oxygen Saturation 93% 02/01/2025 2:03 PM EDT Inhaled Oxygen Concentration - - Weight 95.8 kg (211 lb 1.6 oz) 02/01/2025 2:03 P M EDT Height 180.3 cm (5' 11") 02/01/2025 2:03 PM EDT Body Mass Index 29.44 02/01/2025 2:03 PM EDT documented in this encounter Progress Notes * Kristy Garcias CRNP - 02/01/2025 2:05 PM EDT Gallito Salazar is a 79 year old male who presents with upper and lower respiratory symptoms for 2 week(s) Patient was accompanied by Spouse. HPI Severity of Symptoms: Moderate Modifying Factors (what was done since onset of symptoms): amox, prednisone Timing (how often does it occur): constant Quality (feels like): ache, sore Other associated Signs and Symptoms: body aches, ALMONTE, fatigue, nc, cough Pt presents with . Reports 2 weeks ago began with URI s/s. Reports ALMONTE at times with coughing, body aches, fatigue, nasal congestion, rhinitis, hoarse voice, and cough. Denies fevers. Denies CP, SOB, n/v. Reports earlier in the illness he had diarrhea x3 days. Hx of frequent infections/bronchitis per pt. Reports he took amoxicillin and prednisone that he hadat home for 1 week. Has inhaler at home, did not use ROS See HPI HISTORY Past Medical History: Diagnosis Date Alejandro's palsy Diverticulitis of colon 03/01/2009 GERD (gastroesophageal reflux disease) HTN, goal below 140/90 Hypertension, benign Sleep apnea Past Surgical History: Procedure Laterality Date COLONOSCOPY W/ BIOPSY (RECTUM) 03/08/09 path pending- bx's taken EXPLORATION OF ABDOMEN 01/10/2009 Exploratory Laparotomy with sigmoid colon resection and [facility] of col[facility] GRAFT EAR CARTILAGE TO NOSE/EAR N/A 09/02/2019 GRAFT EAR CARTILAGE TO EAR OR NOSE performed by Ana Paredes MD at OR [facility] NASAL SEPTUM CARTILAGE FOR GRAFT N/A 09/02/2019 OBTAIN CARTILAGE GRAFT NASAL SEPTUM performed by Ana Paredes MD at OR [facility] OTHER 10/24/2015 laparotomy, lysis of lesions [facility] Dr. Jerome 10/24/2015 RECONSTRUCTION OF NOSE/SEPTUM N/A 09/02/2019 RHINOPLASTY COMPLETE INCLUDING MAJOR SEPTAL REPAIR performed by Ana Paredes MD at OR [facility] REMOVAL OF TURBINATE BONES N/A 09/02/2019 EXCISION INFERIOR TURBINATE performed by Ana Paredes MD at OR [facility] REMOVE CATARACT, INSERT LENS PROSTH bilateral REMOVE RIB CARTILAGE FOR GRAFT N/A 09/02/2019 OBTAIN CARTILAGE GRAFT COSTOCHONDRAL performed by Ana Paredes MD at OR [facility] REVISION OF COLOSTOMY, SIMPLE 04/01/09 Takedown and reversal of colostomy with colorectal anastomosis 04/01/09,, [facility], Dr. Jermoe Social History Tobacco Use Smoking status: Former Current packs/day: 0.00 Average packs/day: 1 pack/day for 20.0 years (20.0 ttl pk-yrs) Types: Cigarettes Start date: 09/30/1961 Quit date: 09/30/1981 Years since quittin.3 Smokeless tobacco: Never Tobacco comments: no passive smoke Substance Use Topics Alcohol use: Yes Comment: Socially Vaping/E-Cigarette Use Vaping/E-Cigarette Substances Vaping/E-Cigarette Devices Current Outpatient Medications Medication Sig Dispense Refill ACIPHEX 20 MG PO TBEC one daily LISINOPRIL 20 MG PO TABS one tablet daily testosterone cypionate (DEPOTESTOSTERONE CYPIONATE) 200 MG/ML injection Inject 50 mg into a large muscle once a week. ibuprofen (MOTRIN) 800 MG Tablet TAKE ONE BY MOUTH TWO TIMES A DAY NEEDED WITH FOOD FOR PAIN 1 propranolol CR (INDERAL LA) 80 MG CP24 Take 1 Capsule by mouth in the morning. 3 valACYclovir (VALTREX) 500 MG Tablet Take 3 Tablets by mouth in the morning. 5 Beclomethasone Dipropionate 80 MCG/ACT Nasal Aerosol Solution (Qnasl) Administer into nostril 1 Puff 2 times a day . Ipratropium [place] 0.03 % Nasal Solution (Atrovent) Administer into nostril 2 Sprays every 12 hours . Valsartan 160 MG Oral Tablet (Diovan) Take 1 Tablet by mouth in the morning. metFORMIN HCl 500 MG Oral Tablet (Glucophage) Take 1 Tablet by mouth in the morning and 1 Tablet before bedtime. Turmeric 500 MG Oral Capsule Take 1 Capsule by mouth in the morning. Co Q 10 100 MG Oral Capsule Take by mouth . Vitamin A 4.5 MG (19211 UT) Oral Tablet Take by mouth . Vitamin D (Cholecalciferol) 10 MCG (400 UNIT) Oral Capsule Take by mouth . Vitamin D3 1.25 MG (09887 UT) Oral Capsule Take 1 Capsule by mouth in the morning. Vitamin C 1000 MG Oral Tablet Take 1 Tablet by mouth in the morning. Atorvastatin Calcium 40 MG Oral Tablet (Lipitor) Take 0.5 Tablets by mouth. Celecoxib 200 MG Oral Capsule (CeleBREX) TAKE 1 CAPSULE BY MOUTH DAILY NEEDED FOR JOINT PAIN chlorproMAZINE HCl 25 MG Oral Tablet (Thorazine) TAKE ONE TABLET THREE TIMES DAILY UNTIL HICCUPS SUBSIDE Famotidine 40 MG Oral Tablet (Pepcid) take 1 tablet by mouth every day at night Primidone 250 MG Oral Tablet (Mysoline) Take 1 Tablet by mouth in the morning. terbinafine (LAMISIL) 250 MG Tablet Take 1 Tablet by mouth in the morning and 1 Tablet before bedtime. (Patient not taking: Reported on 02/01/2025) Triazolam 0.25 MG Tablet Take 1 Tablet by mouth at bedtime. (Patient not taking: Reported on 02/01/2025) 0 MEDICAL INSTRUCTIONS Use as directed. CPAP on room air nightly as directed (Patient not taking: Reported on 02/01/2025) VENTOLIN HFA 108 (90 Base) MCG/ACT inhaler INHALE 2 PUFFS BY MOUTH EVERY 4 TO 6 HOURS NEEDED FORWHEEZING (Patient not taking: Reported on 02/01/2025) 5 Promethazine-DM 6.25-15 MG/5ML syrup TAKE 5 ML BY MOUTH EVERY 6 HOURS NEEDED FOR COUGH (Patient not taking: Reported on 02/01/2025) 0 tamsulosin (FLOMAX) 0.4 MG Capsule TAKE ONE CAPSULE BY MOUTH EVERY NIGHT (Patient not taking: Reported on 02/01/2025) 5 fluticasone (FLONASE) 50 MCG/ACT nasal spray 1 spray to each nostril twice per day after you use the saline rinses (Patient not taking: Reported on 02/01/2025) 1 Bottle 5 oxyCODONE (OXY IR) 5 MG immediate release tablet Take 1 Tab by mouth every 4 hours as needed for Pain. (Patient not taking: Reported on 02/01/2025) 5 Tab 0 silver sulfadiazine (SILVADENE) 1 % cream Apply topically to affected area daily. Apply to both first toes. Cover with dry bandage. Perform once daily. (Patient not taking: Reported on 02/01/2025) 50 g0 sulfamethoxazole-trimethoprim DS (BACTRIM DS) 800-160 MG per tablet Take 1 Tab by mouth 2 times a day. (Patient not taking: Reported on 02/01/2025) 14 Tab 0 Aspirin 81 MG Oral Tablet Delayed Release Take 1 Tablet by mouth in the morning. (Patient not taking: Reported on 02/01/2025) Chlorthalidone 25 MG Oral Tablet (Hygroton) Take 1 Tablet by mouth in the morning. (Patient not taking: Reported on 02/01/2025) Primidone 50 MG Oral Tablet (Mysoline) Take 1 Tablet by mouth in the morning and 1 Tablet at noon and 1 Tablet in the evening and 1 Tablet before bedtime. (Patient not taking: Reported on 02/01/2025) Tadalafil 5 MG Oral Tablet (Cialis) Take by mouth 5 mg daily as needed for Erectile Dysfunction. Gabapentin 100 MG Oral Capsule (Neurontin) TAKE 1 CAPSULE BY MOUTH EVERY NIGHT FOR NEUROPATHY (Patient not taking: Reported on 02/01/2025) Beta Carotene 88153 UNIT Oral Capsule Take by mouth . (Patient not taking: Reported on 02/01/2025) Glucosamine 750 MG Oral Tablet Take by mouth . (Patient not taking: Reported on 02/01/2025) Magnesium 400 MG Oral Capsule Take 1 Capsule by mouth in the morning. (Patient not taking: Reportedon 02/01/2025) Zinc 50 MG Oral Tablet Take by mouth 50 mg in the morning. (Patient not taking: Reported on 02/01/2025) Meloxicam 15 MG Oral Tablet Take 1 Tablet by mouth in the morning. (Patient not taking: Reported on02/01/2025) No current facility-administered medications for this visit. Review of patient's allergies indicates: No Known Allergies Family History Problem Relation Name Age of Onset Hypertension Father Allergies Brother chronic rhinitis OBJECTIVE BP 106/70 | Pulse 76 | Temp 37.1 °C (98.8 °F) (Tympanic) | Resp 20 | Ht 1.803 m (5' 11") | Wt 95.8 kg (211 lb 1.6 oz) | SpO2 93% | BMI 29.44 kg/m² | BSA 2.19 m² Wt Readings from Last 1 Encounters: 02/01/25 95.8 kg (211 lb 1.6 oz) General Appearance: awake, alert, no apparent distress HEENT: tms - clear, normal light reflex, no erythema oral pharynx clear, mucus membranes moist No sinus tenderness or facial pain to percussion Neck: normal, supple, no adenopathy Respiratory: + wheezes and + crackles to RLL Heart: regular rate, regular rhythm, no murmurs , no rubs, and no gallops Skin: skin color, texture, turgor are normal, no rashes or significant lesions There are no Patient Instructions on file for this visit. ASSESSMENT AND PLAN Acute bronchitis, unspecified organism (Primary) - XR CHEST 2 VIEWS Wheezing - XR CHEST 2 VIEWS Ddx includes URI, bronchitis, pneumonia Chest xray negative. Given duration of s/s, no improvement from amox and pred, as well as adventitious lung sounds, decision made to treat with doxy and pred. Benzonatate and albuterol PRN cough. Follow up with PCP or RTC if s/s persist ER if worsened. Follow Up: Return if symptoms worsen or fail to improve. Patient goals for plan of care were discussed TOMMY Mata [facility], [facility] [address] [place] [address] documented in this encounter Nursing Notes * Christoph Salgado LPN - 02/01/2025 2:02 PM EDT Gallito Salazar is a 79 year old male who presents to walk-in clinic today complaining of Chief Complaint Patient presents with Cough Other Horse voice, sinus pressure Congestion Loss of Appetite Generalized Body Aches Fatigue Weakness, Generalized X 2 wks ago Patient is accompanied by for today's visit. documented in this encounter Plan of Treatment Health Maintenance Due Date Last Done Comments Depression Screening 1957 Hepatitis C Screening 1963 DTap/Tdap Vaccines ( - Tdap) 1964 COVID-19 Vaccine (2023- season) 2024 Pneumococcal Vaccine: 50+ Years Completed 04/04/2021, 02/18/2018, 09/30/2010 Zoster Vaccines Completed 10/08/2022, 11/2021, 09/30/2010 Influenza Vaccine (FLU shot) Completed , 05/06/2018, 07/30/2017, Additional history exists HPV (Gardasil) Vaccine Aged Out No lo nger eligible based on patient's age to complete this topic Hepatitis B Vaccine Aged Out No longe r eligible based on patient's age to complete this topic MENINGOCOCCAL (MENACTRA/MENVEO) Aged Out No longer eligible based on patient's age to complete this topic Meningitis B Vaccine (Bexsero/Trumemba) Aged Out No longer eligible based on patient's age to complete this topic documented as of this encounter Medical Devices Not on filedocumented as of this encounter Procedures Procedure Name Priority Date/Time Associated Diagnosis Comments XR CHEST 2 VIEWS STAT 02/01/2025 2:25 PM EDT Acute bronchitis, unspecified organism Wheezing documented in this encounter Results * XR CHEST 2 VIEWS (02/01/2025 2:25 PM EDT) Anatomical Region Laterality Modality Chest Digital Radiogra phy 02/01/2025 3:13 PM EDT Impressions 02/01/2025 3:11 PM EDT IMPRESSION 1. Cardiomegaly 2. Elongated tortuous aorta. Narrative 02/01/2025 3:11 PM EDT EXAM XR CHEST 2 VIEWS-02/01/2025 2:25 pm HISTORY 2 weeks cough, wheezing, crackles to RLL. R/o pneumonia COMPARISON No Comparison. TECHNIQUE Two PA and lateral films of the chest were obtained FINDINGS Cardiac silhouette is enlarged. The aorta is elongated and tortuous. The lungs are well aerated. There are no consolidations. There are no large effusions. Multilevel degenerative changes of the spine are present. Procedure Note Peg De La Rosa MD - 02/01/2025 EXAM XR CHEST 2 VIEWS-02/01/2025 2:25 pm HISTORY 2 weeks cough, wheezing, crackles to RLL. R/o pneumonia COMPARISON No Comparison. TECHNIQUE Two PA and lateral films of the chest were obtained FINDINGS Cardiac silhouette is enlarged. The aorta is elongated and tortuous. Thelungs are well aerated. There are no consolidations. There are no largeeffusions. Multilevel degenerative changes of the spine are present. IMPRESSION IMPRESSION 1. Cardiomegaly 2. Elongated tortuous aorta. Kristy [facility] (RAD GENER AL) Final Result documented in this encounter Visit Diagnoses Diagnosis Acute bronchitis, unspecified organism- Primary Wheezing Acute cough documented in this encounter Care Teams Roving Frame Tender Relationship Specialty Start Date End Date Silverio Pride PA-C PCP - General Physician Acquisition Professional 10/10/22 documented as of this encounter
--- OUTSIDE RECORDS SUMMARY | 2025-02-10 02:55 | External Medical Summary | Summary of Care ---
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 Rural Electrification Engineer Name Role Phone Silverio Pride PA-C Primary Care Provide r Encounter Details Date Type Department Care Team ([facility] Contact Info) Description 02/01/2025 Telephone Careworks [facility] [address] [place] [address] Kristy Garcias CRNP [address] [place] [address] Allergies No known active allergiesdocumented as of this encounter (statuses as of 02/02/2025) Medications ACIPHEX 20 MG PO TBEC one daily Active LISINOPRIL 20 MG PO TABS one tablet daily Active terbinafine (LAMISIL) 250 MG Tablet Take 1 Tablet by mouth in the morning and 1 Tablet before bedtime. Active Triazolam 0.25 MG Tablet Take 1 Tablet by mouth at bedtime. 0 7 Active MEDICAL INSTRUCTIONS Use as directed. CPAP on room air nightly as directed Active testosterone cypionate (DEPOTESTOSTERON E CYPIONATE) 200 MG/ML injection Inject 50 mg into a large muscle once a week. Active ibuprofen (MOTRIN) 800 MG Tablet TAKE ONE BY MOUTH TWO TIMES A DAY NEEDED WITH FOOD FOR PAIN 1 9 Active Promethazine-DM 6.25-15 MG/5ML syrup TAKE 5 ML BY MOUTH EVERY 6 HOURS NEEDED FOR COUGH 0 9 Active propranolol CR (INDERAL LA) 80 MG CP24 Take 1 Capsule by mouth in the morning. 3 9 Active tamsulosin (FLOMAX) 0.4 MG Capsule TAKE ONE CAPSULE BY MOUTH EVERY NIGHT 5 9 Active valACYclovir (VALTREX) 500 MG Tablet Take 3 Tablets by mouth in the morning. 5 9 Active fluticasone (FLONASE) 50 MCG/ACT nasal spray 1 spray to each nostril twice per day after you use the saline rinses 1 Bottle 5 9 Active Additional Information Patient not taking.Reported on 02/01/2025 oxyCODONE (OXY IR) 5 MG immediate release tablet Take 1 Tab by mouth every 4 hours as needed for Pain. 5 Tab 9 Active Additional Information Patient not taking.Reported on 02/01/2025 silver sulfadiazine (SILVADENE) 1 % cream Apply topically to affected area daily. Apply to both first toes. Cover with dry bandage. Perform once daily. 50 g 0 Active Additional Information Patient not taking.Reported on 02/01/2025 sulfamethoxazole -trimethoprim DS (BACTRIM DS) 800-160 MG per tablet Take 1 Tab by mouth 2 times a day. 14 Tab 0 Active Additional Information Patient not taking.Reported on 02/01/2025 Aspirin 81 MG Oral Tablet Delayed Release Take 1 Tablet by mouth in the morning. Active Beclomethasone Dipropionate 80 MCG/ACT Nasal Aerosol Solution (Qnasl) Administer into nostril 1 Puff 2 times a day . Active Chlorthalidone 25 MG Oral Tablet (Hygroton) Take 1 Tablet by mouth in the morning. Active Ipratropium Lytton 0.03 % Nasal Solution (Atrovent) Administer into [...] CAPSULE BY MOUTH EVERY NIGHT FOR NEUROPATHY 2 Active metFORMIN HCl 500 MG Oral Tablet (Glucophage) Take 1 Tablet by mouth in the morning and 1 Tablet before bedtime. 2 Active Turmeric 500 MG Oral Capsule Take 1 Capsule by mouth in the morning. Active Beta Carotene 50988 UNIT Oral Capsule Take by mouth . Acti ve Co Q 10 100 MG Oral Capsule Take by mouth . A ctive Glucosamine 750 MG Oral Tablet Take by mouth . Active Magnesium 400 MG Oral Capsule Take 1 Capsule by mouth in the morning. Active Vitamin A 4.5 MG (47767 UT) Oral Tablet Take by mouth . Acti ve Vitamin D (Cholecalciferol ) 10 MCG (400 UNIT) Oral Capsule Take by mouth . Acti ve Vitamin D3 1.25 MG (87199 UT) Oral Capsule Take 1 Capsule by [...] Tablet (Lipitor) Take 0.5 Tablets by mouth. 4 Active Celecoxib 200 MG Oral Capsule (CeleBREX) TAKE 1 CAPSULE BY MOUTH DAILY NEEDED FOR JOINT PAIN Active chlorproMAZINE HCl 25 MG Oral Tablet (Thorazine) TAKE ONE TABLET THREE TIMES DAILY UNTIL HICCUPS SUBSIDE 5 Active Famotidine 40 MG Oral Tablet (Pepcid) take 1 tablet by mouth every day at night 5 Active Primidone 250 MG Oral Tablet (Mysoline) Take 1 Tablet by mouth in the morning. 5 Active Doxycycline Hyclate 100 MG Oral CapsuleIndicatio ns:Acute bronchitis, unspecified organism Take 1 Capsule by mouth in the morning and 1 Capsule before bedtime. Do all this for 7 days. Take for 7 days. 14 Capsule 5 02/09/20 25 Active predniSONE 10 MG Oral Tablet (Deltasone)Indic ations:Wheezing, Acute cough Take 1 Tablet by mouth in the morning for 5 days. As directed. 5 Tablet 5 02/07/20 25 Active Benzonatate 100 MG Oral Capsule (Dino Pizarrotala)Indicatio ns:Acute cough Take 1 Capsule by mouth 3 times a day as needed for Cough for up to 7 days. Do not cut, crush, or chew. 21 Capsule 5 02/09/20 25 Active Albuterol Sulfate HFA 108 (90 Base) MCG/ACT Inhalation Aerosol Solution Inhale 2 Puffs by mouth every 6 hours as needed for Shortness of Breath, Cough or Wheezing. 6.7 g 5 Active documented as of this encounter (statuses as [...] 0 09/30/1961 - 09/30/1981 Smokeless Tobacco: Never Comments:no passive smoke Alcohol Use Standard Drinks/Week Comments Yes 0 (1 standard drink = 0.6 oz pur e alcohol) Socially Sex and Gender Information Value Date Recorded Sex Assigned at Not on file Legal Sex Male 5:56 AM EST Gender Identity Not on file Sexual Orientation Not on file documented as of this encounter Miscellaneous Notes * Telephone Encounter - Kristy Garcias CRNP - 02/01/2025 3:49 PM EDT Spoke with pt's after pt gave verbal permission Confirmed name and Chest xray negative. Enlarged aorta. Continue all meds as prescribed. Follow up with PCP ER if worsened documented in this encounter Plan of Treatment Health Maintenance Due Date Last Done Comments Depression Screening 1957 Hepatitis C Screening 1964 DTap/Tdap Vaccines (1 - Tdap) 1965 COVID-19 Vaccine ( - 2023- season) 2024 Pneumococcal Vaccine: 50+ Years Completed [...] Not on filedocumented as of this encounter Care Teams Rural Electrification Engineer Relationship Specialty Start Date End Date Silverio Pride PA-C PCP - General Physician Medical Voucher Clerk 10/10/22 documented as of this encounter
[2025-02-10] MEDS: guaiFENesin/DEXTROM SYRUP 100MG/10MG 5ML UDC PO PRN (03:40)
[2025-02-10] MEDS: ENOXAPARIN 100 MG/1ML SYR SQ SCH (06:02)
[2025-02-10 06:34] LABS: Hematocrit (blood only) 53.1 % (42.0-52.0); Hemoglobin 17.6 g/dl (14.0-18.0); Mean Corpuscular Hemoglobin 30.7 pg (25.0-34.0); Mean Corpuscular Hgb Conc 33.1 g/dL (32.0-36.0); Mean Corpuscular Volume 92.7 fL (80.0-100.0); Mean Platelet Volume 10.2 fL (9.4-12.4); Platelet Count 208 K/uL (130-400); RDW Coefficient of Variation 13.9 % (11.5-14.5); RDW Standard Deviation 47.1 fL (36.4-46.3); Red Blood Count 5.73 M/uL (4.70-6.10); White Blood Count 12.63 K/ul (4.8-10.8)
--- NOTE | 2025-02-10 06:51 | Billing Data ---
Date of Service February 09, 2025 Coding Level of Care Code 46013 INT INP/OBS CARE
[2025-02-10 06:59] LABS: Potassium 4.8 mmol/L (3.5-5.1)
[2025-02-10 07:07] LABS: BUN Creatinine Ratio 20.5 (10-20); Calcium 8.5 mg/dl (8.6-10.3); Creatinine Clr Calc Pharmacy 64.3 ml/min
[2025-02-10] MEDS: PRIMIDONE 250 MG TAB PO SCH (08:05)
[2025-02-10] MEDS: valACYclovir HCL 500 MG TABLET PO SCH (08:05)
[2025-02-10] MEDS: TAMSULOSIN HCL 0.4 MG CAP PO SCH (08:05)
[2025-02-10] MEDS: PANTOprazole 40 MG TAB PO SCH (08:05)
[2025-02-10] MEDS: PROPRANOLOL HCL LA 80 MG CAPCR PO SCH (08:05)
[2025-02-10] MEDS: VALSARTAN 80 MG TAB PO SCH (09:09)
--- NOTE | 2025-02-10 11:44 | XCELERA ---
[id number] [id number]
--- NOTE | 2025-02-10 13:17 | Hospitalist Progress Note ---
Date of Service February 10, 2025 Assessment & Plan (1) Bilateral pulmonary embolism: Plan: Acute. Fortunately no respiratory failure. No evidence of acute cor pulmonale seen on echo. He currently is on Lovenox 1 mg/kg subcutaneously every 12 hours. Eventual switch to Xarelto. (2) DVT (deep venous thrombosis): Plan: Right lower extremity below the knee. Unprovoked. This is his first episode of DVT. (3) Occult malignancy: Plan: History of smoking, recent weight loss, coughing for 1 month is suspicious for presence of occult malignancy. Chest CT scan is pending. (4) Pneumonia: Plan: Possible left lower lobe pneumonia on admission. He is now on intravenous Rocephin and azithromycin, day 2. Sputum culture is ordered and pending (5) Aortic stenosis: Plan: Current cardiac echo reveals progression of aortic stenosis to now a moderate degree. This will need continued outpatient follow-up Plan To be determined Admission and Anticipated Discharge Date Admission Date: February 09, 2025 Subjective Alert and oriented. The patient was found to have bilateral PEs but fortunately he is on room air. He also has a new right lower extremity DVT that was unprovoked. He states he has been coughing for at least a month and has experienced a 20 pound weight loss over the past month. These findings are highly suspicious for an occult malignancy. Chest CT scan is ordered and pending. He remains on intravenous Rocephin and azithromycin. He is also on Lovenox 1 mg/kg subcutaneously every 12 hours for now. Valsartan was restarted for better blood pressure control. Cardiac echo reveals severe left ventricular hypertrophy with normal ejection fraction and normal right ventricular function. No evidence of acute cor pulmonale from the PEs. Aortic stenosis has progressed to moderate status now and will need continued follow-up as an outpatient. Review of Systems 2 Review of Systems: Constitutionalno fever or chills. Recent 20 pound weight loss over approximately 1 month ENTno blurred vision, no double vision, no epistaxis, no sore throat Respiratoryoccasionally productive cough. No wheezing. No hemoptysis. Cardiacno palpitations, no chest pain, no syncope Jacobo nausea, vomiting, diarrhea, melena, hematochezia GUno urinary retention, no urinary incontinence, no dysuria, no hematuria Musculoskeletalright lower extremity discomfort below the knee with associated mild edema Skinno bruising, no rashes, no pruritus Neurono isolated weakness, no paresthesia, no weakness Psychno depression, no anxiety Physical Exam 2 Physical Exam: General-alert and oriented x3, no fever, no chills HEENT-head atraumatic and normocephalic, pupils equal and reactive to light, extraocular muscles intact Neck-no lymphadenopathy or thyromegaly, trachea midline Chest-scattered bilateral rhonchi. No dullness to percussion. No wheezing i Cardiac-regular rate and rhythm, normal S1 and S2 Abdomen-normal bowel sounds, no hepatosplenomegaly Extremities-tender right calf with mild edema Neuro-cranial nerves II through XII intact, motor and sensory function within normal limits, strength symmetrical, no focal deficits Psych-normal affect, normal mood Results & Data Results & Data Vital Signs (Past 12 Hours) Vital Signs Temp Pulse Pulse Resp BP Pulse Ox O2 Del Method 02/10/25 11:36 36.7 C 62 16 120/70 95 Room Air 02/10/25 09:00 59 L 02/10/25 09:00 Room Air 02/10/25 08:25 37.0 C 66 20 203/89 H 94 Room Air 02/10/25 08:03 185/96 H 02/10/25 03:38 36.5 C 64 19 163/86 H 96 Room Air Laboratory Results 02/10/25 06:00 02/10/25 06:00 PG Care Time/CCT Total # of Minutes Spent Total Time Spent with Patient: Total time spent is greater than 50% in coordination of care (as documented) at patient's floor/unit and/or counseling patient: Coding Level of Care Code 98477 SUB INP/OBS CARE 3/50MIN Diagnoses Bilateral pulmonary embolism I26.99 DVT (deep venous thrombosis) I82.409 Occult malignancy C80.1 Pneumonia J18.9 Aortic valve stenosis, etiology of cardiac valve disease unspecified I35.0 Cardiac valve disease etiology: etiology unspecified (5) Aortic stenosis Cardiac valve disease etiology: etiology unspecified Qualified Code(s): I35.0 - Nonrheumatic aortic (valve) stenosis
[2025-02-10] MEDS: OPTIRAY 320 100ml IV ONE (14:20)
--- NOTE | 2025-02-10 14:54 | CT Scan Report ---
CHEST CT WITH CONTRAST CT DOSE: 1253.69 mGy.cm HISTORY: Acute weight loss weight loss, new DVT, former smoker TECHNIQUE: Multiaxial CT images of the chest were performed following the IV administration of 90 cc of Optiray. A dose lowering technique was utilized adhering to the principles of ALARA. COMPARISON: CT chest from outside facility 02/09/2025 FINDINGS: Bilateral lobar, segmental and subsegmental pulmonary emboli redemonstrated, better seen on yesterday's study. Moderate cardiomegaly with coronary artery calcifications. Atherosclerosis of the aorta with mild fusiform dilation measuring up to 4 cm's. No lymphadenopathy. Small right pleural effusion. Patchy bibasilar opacities are again noted with right lower lobe pulmon susy infarct and seen on image 149. Respiratory motion artifact limits a violation of the lungs. Small hiatal hernia. Unremarkable soft tissues. No acute fracture. Degenerative and postoperative changes of the cervical spine. IMPRESSION: 1. Lobar, segmental and subsegmental pulmonary emboli redemonstrated, better visualized on yesterday' s outside hospital CTA of the chest. 2. Small right pleural effusion with right lower lobe atelectasis and pulmonary infarct(s) again note d. 3. Mild patchy left basilar opacities are again seen, likely infectious or inflammatory. ACT 112: Negative or not required by law. Electronically signed by: Mark Ortiz M.D. 02/10/2025 2:52 PM
[2025-02-10] MEDS: cefTRIAXone SODIUM 2,000 MG/50 ML BAG IV SCH (16:59)
[2025-02-10] MEDS: AZITHROMYCIN 250 MG in DEXTROSE 5% 250 ML IV SCH (17:08)
[2025-02-10] MEDS: MELATONIN 3 MG TAB PO PRN (21:55)
[2025-02-11 07:08] LABS: Basophils # (auto) 0.06 K/uL (0.00-0.20); Basophils % (auto) 0.6 %; Eosinophils # (auto) 0.08 K/uL (0.00-0.50); Eosinophils % (auto) 0.9 %; Hematocrit (blood only) 51.1 % (42.0-52.0); Hemoglobin 16.9 g/dl (14.0-18.0); Immature Granulocytes # (auto) 0.05 K/uL (0.01-0.20); Immature Granulocytes % (auto) 0.5 %; Lymphocytes # (auto) 1.82 K/uL (1.20-3.40); Lymphocytes % (auto) 19.6 %; Mean Corpuscular Hemoglobin 30.4 pg (25.0-34.0); Mean Corpuscular Hgb Conc 33.1 g/dL (32.0-36.0); Mean Corpuscular Volume 91.9 fL (80.0-100.0); Monocytes # (auto) 1.08 K/uL (0.11-0.59); Monocytes % (auto) 11.6 %; Neutrophils % (auto) 66.8 %; Platelet Count 216 K/uL (130-400); RDW Coefficient of Variation 13.9 % (11.5-14.5); RDW Standard Deviation 47.5 fL (36.4-46.3); Red Blood Count 5.56 M/uL (4.70-6.10); White Blood Count 9.29 K/ul (4.8-10.8)
[2025-02-11 07:20] LABS: Calcium 8.5 mg/dl (8.6-10.3); Potassium 4.4 mmol/L (3.5-5.1)
[2025-02-11 07:25] LABS: BUN Creatinine Ratio 16.8 (10-20); Creatinine Clr Calc Pharmacy 71.3 ml/min
[2025-02-11] MEDS ORDERED: ENOXAPARIN 1 MG/KG SC SCH (09:00)
[2025-02-11] MEDS ORDERED: RIVAROXABAN 15 MG TAB PO SCH (09:00)
--- NOTE | 2025-02-11 11:26 | Hospitalist Progress Note ---
Date of Service February 11, 2025 Assessment & Plan (1) Bilateral pulmonary embolism: Plan: Acute. Fortunately no respiratory failure. No evidence of acute cor pulmonale seen on echo. He currently is on Lovenox 1 mg/kg subcutaneously every 12 hours. Unfortunately both Xarelto and Eliquis interact with his primidone according to our pharmacy. He will remain on subcutaneous Lovenox. (2) DVT (deep venous thrombosis): Plan: Right lower extremity below the knee. Unprovoked. This is his first episode of DVT. (3) Occult malignancy: Plan: History of smoking, recent weight loss, coughing for 1 month is suspicious for presence of occult malignancy. Chest CT at the outside hospital revealed a less than 1 cm nodule in the left lower lobe. This was not described on the chest CT scan here. This can be further evaluated as an outpatient with a PET CT scan. CT of the abdomen and pelvis ordered and pending. Lab testing including CEA, PSA, CA 19-9 ordered and pending (4) Pneumonia: Plan: Possible left lower lobe pneumonia on admission. He is now on intravenous Rocephin and azithromycin, day 3. Sputum culture is nondiagnostic (5) Aortic stenosis: Plan: Current cardiac echo reveals progression of aortic stenosis to now a moderate degree. This will need continued outpatient follow-up Plan Probably home tomorrow, February 12, on an oral antibiotic and Lovenox 1 mg/kg subcutaneously every 12 hours. Admission and Anticipated Discharge Date Admission Date: February 09, 2025 Subjective Alert and oriented. No distress. Unfortunately, both Xarelto and Eliquis interact with his primidone and he will remain on Lovenox 1 mg/kg subcutaneously every [address] scan at the outside hospital prior to admission revealed a left lower lobe nodule that was not described on the chest CT scan here. This will need further outpatient evaluation. CAT scan of the abdomen impelled this ordered and pending. CEA, PSA, and CA 199 ordered and pending. He remains on room air. He probably will go home tomorrow, February 12 Review of Systems 2 Review of Systems: Constitutionalno fever or chills. Recent 20 pound weight loss over approximately 1 month ENTno blurred vision, no double vision, no epistaxis, no sore throat Respiratoryoccasionally productive cough. No wheezing. No hemoptysis. Cardiacno palpitations, no chest pain, no syncope Jacobo nausea, vomiting, diarrhea, melena, hematochezia GUno urinary retention, no urinary incontinence, no dysuria, no hematuria Musculoskeletalright lower extremity discomfort below the knee with associated mild edema Skinno bruising, no rashes, no pruritus Neurono isolated weakness, no paresthesia, no weakness Psychno depression, no anxiety Physical Exam 2 Physical Exam: General-alert and oriented x3, no fever, no chills HEENT-head atraumatic and normocephalic, pupils equal and reactive to light, extraocular muscles intact Neck-no lymphadenopathy or thyromegaly, trachea midline Chest-scattered bilateral rhonchi. No dullness to percussion. No wheezing i Cardiac-regular rate and rhythm, normal S1 and S2 Abdomen-normal bowel sounds, no hepatosplenomegaly Extremities-tender right calf with mild edema Neuro-cranial nerves II through XII intact, motor and sensory function within normal limits, strength symmetrical, no focal deficits Psych-normal affect, normal mood Results & Data Results & Data Vital Signs (Past 12 Hours) Vital Signs Temp Pulse Pulse Resp BP Pulse Ox O2 Del Method 02/11/25 08:24 36.6 C 65 18 183/94 H 95 Room Air 02/11/25 08:00 62 02/11/25 08:00 Room Air 02/11/25 04:12 36.7 C 57 L 18 170/88 H 96 Room Air 02/11/25 00:22 64 Laboratory Results 02/11/25 06:44 02/11/25 06:44 PG Care Time/CCT Total # of Minutes Spent Total Time Spent with Patient: Total time spent is greater than 50% in coordination of care (as documented) at patient's floor/unit and/or counseling patient: Coding Level of Care Code 98316 SUB INP/OBS CARE 3/50MIN Diagnoses Bilateral pulmonary embolism I26.99 DVT (deep venous thrombosis) I82.409 Occult malignancy C80.1 Pneumonia J18.9 Aortic valve stenosis, etiology of cardiac valve disease unspecified I35.0 Cardiac valve disease etiology: etiology unspecified (5) Aortic stenosis Cardiac valve disease etiology: etiology unspecified Qualified Code(s): I35.0 - Nonrheumatic aortic (valve) stenosis
--- NOTE | 2025-02-11 14:33 | XRay Report ---
XR chest 2V PA/lateral CLINICAL HISTORY: [facility] COMPARISON STUDY: 11/11/2024 FINDINGS: 2 views of the chest demonstrate a subtle area of parenchymal density in the left lower lob e most pronounced overlying the spine on the lateral view. This represents a new finding. The lung fi elds are otherwise clear. There is no pleural effusion or pneumothorax. The heart remains mildly enla rged. The aorta remains atherosclerotic and ectatic. IMPRESSION: Patchy left basilar infiltrate could be pneumonia in the appropriate clinical context. ACT 112: Negative or not required by law. Electronically signed by: Mohini Maria M.D. 02/11/2025 2:32 PM
[2025-02-12 06:57] LABS: Basophils # (auto) 0.07 K/uL (0.00-0.20); Basophils % (auto) 0.8 %; Eosinophils # (auto) 0.14 K/uL (0.00-0.50); Eosinophils % (auto) 1.7 %; Hematocrit (blood only) 51.4 % (42.0-52.0); Hemoglobin 16.9 g/dl (14.0-18.0); Immature Granulocytes # (auto) 0.02 K/uL (0.01-0.20); Immature Granulocytes % (auto) 0.2 %; Lymphocytes # (auto) 1.91 K/uL (1.20-3.40); Lymphocytes % (auto) 22.6 %; Mean Corpuscular Hemoglobin 30.3 pg (25.0-34.0); Mean Corpuscular Hgb Conc 32.9 g/dL (32.0-36.0); Mean Corpuscular Volume 92.1 fL (80.0-100.0); Mean Platelet Volume 9.7 fL (9.4-12.4); Monocytes # (auto) 0.95 K/uL (0.11-0.59); Monocytes % (auto) 11.2 %; Neutrophils # (auto) 5.37 K/uL (1.40-6.50); Neutrophils % (auto) 63.5 %; Platelet Count 212 K/uL (130-400); RDW Coefficient of Variation 13.9 % (11.5-14.5); RDW Standard Deviation 47.2 fL (36.4-46.3); Red Blood Count 5.58 M/uL (4.70-6.10); White Blood Count 8.46 K/ul (4.8-10.8)
[2025-02-12 07:25] LABS: Calcium 8.6 mg/dl (8.6-10.3)
[2025-02-12 07:31] LABS: BUN Creatinine Ratio 18.6 (10-20); Creatinine Clr Calc Pharmacy 70.5 ml/min; Potassium 4.2 mmol/L (3.5-5.1)
[2025-02-12 11:01] VITALS: BP 131/83; PULSE 68; RESP 20; TEMP 97.9; O2SAT 96
--- NOTE | 2025-02-12 11:45 | Discharge Summary ---
Discharge Summary Date of Service February 12, 2025 Principal Dx & Hospital Course #1 = Principal Diagnosis (1) Bilateral pulmonary embolism: Acute. Fortunately no respiratory failure. No evidence of acute cor pulmonale seen on echo. He currently is on Lovenox 1 mg/kg subcutaneously every 12 hours. Unfortunately both Xarelto and Eliquis interact with his primidone according to our pharmacy. He will remain on subcutaneous Lovenox. (2) DVT (deep venous thrombosis): Right lower extremity below the knee. Unprovoked. This is his first episode of DVT. (3) Occult malignancy: History of smoking, recent weight loss, coughing for 1 month is suspicious for presence of occult malignancy. Chest CT at the outside hospital revealed a less than 1 cm nodule in the left lower lobe. This was not described on the chest CT scan here. This can be further evaluated as an outpatient with a PET CT scan. CT of the abdomen and pelvis ordered and still pending. CEA level is normal. PSA level is mildly elevated. CA 199 level is mildly elevated (4) Pneumonia: Ruled out. Procalcitonin level is normal. Antibiotics have been discontinued. Sputum culture is negative (5) Aortic stenosis: Current cardiac echo reveals progression of aortic stenosis to now a moderate degree. This will need continued outpatient follow-up Plan Home today, February 12, on Lovenox. Admission HPI Per Admitting Provider 79 year old male with PMHx that includes HTN, HLD, aortic stenosis, essential tremor, BPH, and GERD presents as direct admit from [facility] after he was found to have a DVT of the RLE and bilateral PEs with imaging that noted concern for right heart strain. Patient notes that he specifically requested transfer to [facility]. Patient states that he has had a cough and generalized malaise/fatigue/weakness for the past 4 weeks. Reports right calf soreness for past 3-4 days, no associated swelling or erythema - based on this, PCP recommended ED evaluation. Patient denies overt shortness of breath, chest pain or tightness, fevers/chills. Denies h/o previous DVT/PE. Denies current or previous cancers. Denies recent travel, though states that he has largely been immobile these past few weeks, has only been getting up to move between bed, couch, kitchen, and bathroom. Review of OSH documentation: Labs notable for leukocytosis with WBC count of 13.5, otherwise unremarkable. Neg trop and BNP. Neg Covid/flu/RSV. RLE venous duplex US: +acute occlusive DVT within right popliteal, peroneal and posterior tibial veins CTA: multiple bilateral pulmonary emboli involving all lobes of both lungs, RV dilatation suggestive of right heart strain, patchy airspace density of left lung base, likely infiltrate vs atelectasis. Patient started on therapeutic Lovenox (1mg/kg Q12H), Ceftriaxone, and Azithromycin - last dose of all three ~1600 on 02/09/25. Discharge Exam General-alert and oriented x3, no fever, no chills HEENT-head atraumatic and normocephalic, pupils equal and reactive to light, extraocular muscles intact Neck-no lymphadenopathy or thyromegaly, trachea midline Chest-scattered bilateral rhonchi. No dullness to percussion. No wheezing i Cardiac-regular rate and rhythm, normal S1 and S2 Abdomen-normal bowel sounds, no hepatosplenomegaly Extremities-tender right calf with mild edema Neuro-cranial nerves II through XII intact, motor and sensory function within normal limits, strength symmetrical, no focal deficits Psych-normal affect, normal mood Discharge Plan Discharge Items Patient Disposition: Home - Self-Care Reason For Visit: B/L PE,RLE DVT Discharge Diagnosis: Bilateral pulmonary emboli with possible right lower lobe pulmonary infarction, right lower extremity DVT, moderate aortic valve stenosis Activity: Resume your previous activity Non-emergency contact: Primary Care Provider Call non-emergency contact if: your symptoms worsen Follow-up/Referrals: Silverio Pride PA-C [Primary Care Provider] - Diet: Regular Addtl Attending Provider Instructions: See primary care provider soon as possible. Aortic stenosis is now moderately severe and will need to be followed as an outpatient. Continue Lovenox injections twice daily for now Pending Studies at Discharge: No Stand-Alone Forms: My [employer] App, Smoking Cessation Medications and DC Order Prescriptions: New enoxaparin 100 mg/mL Syringe 100 mg subcut Q12H Qty: 60 0RF Continued atorvastatin 20 mg tablet 20 mg PO DAILY sildenafil (pulm.hypertension) 20 mg tablet 100 mg PO ONCE PRN (Reason: sexual activity) Rx Instructions: Take approx 1 hour prior to activity. Avoid large or heavy meals for maximum effectiveness. primidone 250 mg tablet 250 mg PO DAILY Qty: 90 3RF propranolol 80 mg capsule,extended release 24hr 80 mg PO DAILY Qty: 90 3RF rabeprazole 20 mg tablet,delayed release (DR/EC) 20 mg PO BID triazolam 0.25 mg tablet 0.25 mg PO HS PRN (Reason: Insomnia) valacyclovir 500 mg tablet 500 mg PO DAILY tamsulosin 0.4 mg capsule 0.4 mg PO HS testosterone cypionate 200 mg/mL oil 200 mg IM WK tadalafil 10 mg tablet 10 mg PO UD Rx Instructions: DIRECTED valsartan 320 mg tablet 160 mg PO DAILY Discharge Orders: Discharge Order (Routine); Ordered 02/12/25 Ordered By: Gilberto Fowler Admission Data Admit Date/Time: 02/09/25 19:57 Attending Provider: Gilberto Fowler Admit Provider: Chris Cornelius Primary Care Provider: Silverio Pride Hospital Stay Data Diagnostic Imagining Performed 02/10/25 13:11 CT chest diagnostic w con Urgent 02/11/25 14:59 CT abd pelvis IV con only Urgent Pending Results Patient Have Any Pending Studies at Discharge: No Discharge Instructions Given to Patient (Per Discharging Provider) See primary care provider soon as possible. Aortic stenosis is now moderately severe and will need to be followed as an outpatient. Continue Lovenox injections twice daily for now Total Time Total Time Spent Total Time Spent (In Minutes): 45 minutes Coding Level of Care Code 71744 INP/OBS DISCH >30 MIN Diagnoses Bilateral pulmonary embolism I26.99 DVT (deep venous thrombosis) I82.409 Occult malignancy C80.1 Pneumonia J18.9 Aortic valve stenosis, etiology of cardiac valve disease unspecified I35.0 Cardiac valve disease etiology: etiology unspecified
== END 2025-02-12 13:56 | disposition home or self-care (01) | DRG 175 ==
LOC: 2E 19:57 → SUATTDRO 19:57

== ENCOUNTER 2025-04-04 10:01 | Inpatient (IN) ==
[2025-04-04] MEDS: SODIUM CHLORIDE 0.9% 1,000 ML IV STA (10:47)
[2025-04-04 11:03] LABS: Hematocrit (blood only) 53.2 % (42.0-52.0); Hemoglobin 17.9 g/dl (14.0-18.0); Immature Granulocytes # (auto) 0.08 K/uL (0.01-0.20); Immature Granulocytes % (auto) 0.6 %; Mean Corpuscular Hemoglobin 32.3 pg (25.0-34.0); Mean Corpuscular Volume 96.0 fL (80.0-100.0); Platelet Count 161 K/uL (130-400); RDW Standard Deviation 53.2 fL (36.4-46.3); Red Blood Count 5.54 M/uL (4.70-6.10); White Blood Count 13.89 K/ul (4.8-10.8)
--- NOTE | 2025-04-04 11:07 | Emergency Department Note ---
History of Present Illness General Chief complaint: Abdominal Pain Stated complaint: SEVERE ABD PAIN Time Seen by Provider: 04/04/25 10:22 History of Present Illness Maximum Pain Intensity: 4 This 79-year-old male presents today with his , for evaluation of his abdomen. The patient states he developed sudden onset of significant abdominal pain last evening right after dinner. It has persisted into today, though he states it is not quite as intense. The patient moved his bowels yesterday morning and states they were normal. There was no issue. He now feels as though he needs to defecate, but cannot. He states there is nothing there. He has a history of previous diverticulitis with subsequent sigmoidectomy. He has a history of small bowel obstruction at the anastomosis site. He states this feels similar. He is nauseated but denies any vomiting. No fevers or chills. There was back pain last evening but none today. No chest pain or shortness of breath. Pain is on the right upper and lower quadrants. No other treatment. No other complaints. Home Medications Medication Instructions Recorded Confirmed Type tadalafil 10 mg tablet 10 mg PO UD 05/07/23 04/04/25 History tamsulosin 0.4 mg capsule 0.4 mg PO HS 05/07/23 04/04/25 History triazolam 0.25 mg tablet 0.25 mg PO HS PRN Insomnia 05/07/23 04/04/25 History valacyclovir 500 mg tablet 500 mg PO DAILY 05/07/23 04/04/25 History atorvastatin 20 mg tablet 20 mg PO DAILY 03/09/24 04/04/25 History propranolol 80 mg capsule,24 80 mg PO DAILY #90 caps 09/14/24 04/04/25 Rx hr,extended release gabapentin 100 mg capsule 100 mg PO DAILY 03/08/25 04/04/25 History metformin 500 mg tablet 500 mg PO DAILY 03/08/25 04/04/25 History amino acids 1 cap PO DAILY 03/17/25 04/04/25 History arginine (L-arginine) 500 mg tablet 500 mg PO DAILY 03/17/25 04/04/25 History ascorbic acid (vitamin C) 1,000 mg 1,000 mg PO DAILY 03/17/25 04/04/25 History capsule beta carotene 7,500 mcg (25,000 7,500 mcg PO DAILY 03/17/25 04/04/25 History unit) capsule cholecalciferol (vitamin D3) 10 10 mcg PO DAILY 03/17/25 04/04/25 History mcg (400 unit) tablet coQ10 (ubiquinol) 100 mg capsule 100 mg PO DAILY 03/17/25 04/04/25 History (Qunol Darren CoQ10) echinacea 400 mg capsule 400 mg PO DAILY 03/17/25 04/04/25 History rabeprazole 20 mg tablet,delayed 20 mg PO DAILY 03/17/25 04/04/25 History release testosterone cypionate 200 mg/mL 100 mg IM WK 03/17/25 04/04/25 History intramuscular oil vitamin A palmitate 3,000 mcg 1,500 mcg PO DAILY 03/17/25 04/04/25 History (10,000 unit) tablet primidone 50 mg tablet See Rx Instructions PO .COMPLEX 03/23/25 04/04/25 Rx #90 tabs dabigatran etexilate 150 mg capsule 150 mg PO BID #180 caps 03/29/25 04/04/25 Rx celecoxib 200 mg capsule 200 mg PO DAILY PRN joint pain 04/04/25 04/04/25 History famotidine 40 mg tablet 40 mg PO DAILY 04/04/25 04/04/25 History omeprazole 40 mg capsule,delayed 40 mg PO DAILY 04/04/25 04/04/25 History release primidone 50 mg tablet 50 mg PO TID #0 tabs 04/05/25 Rx Allergies Allergy/AdvReac Type Severity Reaction Status Date / Time No Known Allergies Allergy Mild NONE Verified 03/17/25 16:24 Past Med/Surg History Problem List (Updated 04/06/25 @ 22:06 by Charlse Dc PA-C) Acute cholecystitis (Acute) Diabetes HLD (hyperlipidemia) BPH (benign prostatic hyperplasia) Acute cholecystitis Bilateral pulmonary embolism DVT (deep venous thrombosis) Sciatica associated with disorder of lumbar spine Aortic stenosis On statin therapy Diffuse abdominal pain (Acute) SBO (small bowel obstruction) (Acute) Abdominal distension (Acute) LAFB (left anterior fascicular block) First degree atrioventricular block by electrocardiogram Cardiovascular event risk Abnormal ECG Mitral regurgitation Aortic valve sclerosis History of diverticulitis (Chronic) DDD (degenerative disc disease), cervical Partial small bowel obstruction Cervical radiculopathy (Chronic) Carpal tunnel syndrome, bilateral (Chronic) Left ankle pain Left ankle sprain Peroneal tendonitis of left lower extremity Flat foot Impotence Peptic reflux disease Testicular hypofunction Sleep apnea, obstructive BPH loc w urin obs/LUTS Sciatica Lyme disease Tingling Vertigo Vertebral artery stenosis Hypogonadism in male Urethral stricture Idiopathic polyneuropathy Medical History BPH w urinary obs/LUTS Essential tremor GERD (gastroesophageal reflux disease) Hypertension Tarsal tunnel syndrome Malaise and fatigue Deviated septum Dizziness and giddiness Vertigo Tinea pedis Allergic rhinitis Family History Father Hypertension Grandfather Prostate cancer Social History Smoking Status: Former smoker Second Hand Exposure: No; Do You Dip or Chew Tobacco: No; Hx Alcohol Use: No Hx Substance Use: No Preferred Language: Russian Communication Ability: Effective Visual Impairment: No Limitations Hearing Ability: Normal Addictions Therapist Required: No Beliefs That Will Affect Care: None marital status: Current Living Situation: Spouse current occupational status: employed 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 Feels Safe at Home: Yes Diet: regular Assistive Devices: None Review of Systems A total of 10 systems reviewed and were otherwise negative Physical Exam Vital Signs Vital Signs - 24 hr 04/04/25 10:10 04/04/25 10:35 Temperature 36.7 C Temperature Source Temporal Artery Scan Pulse Rate 73 Respiratory Rate 18 Blood Pressure 192/102 H Blood Pressure Mean 132 Pulse Oximetry 98 95 Oxygen Delivery Method Room Air Room Air Sepsis New/Unexplained Change in Mental Status No Sepsis Action Taken by Nursing No Action Required General: Well-developed, well-nourished, elderly white male, in no acute distress. Obvious discomfort. Laying on the bed. Alert and oriented. Skin: Warm and dry with good turgor. No rashes. No ecchymosis or erythema. HEENT: Normocephalic atraumatic. Eyes PERRLA, EOMI. No conjunctiva or scleral injection. Nares patent bilaterally without turbinate enlargement. No significant drainage. No epistaxis. Oropharynx without erythema or exudate. Uvula midline, oral mucosa moist. No lesions present. Heart: RRR. 3/6 systolic ejection murmur is noted. No gallops or rubs. Peripheral pulses are 2+. Lungs: Clear to auscultation bilaterally. No crackles, rhonchi, or wheezing. Good air movement. Abdomen: Abdomen was inspected, auscultated, and palpated. Obese. Bowel sounds present x 4 but infrequent. Soft, right lower quadrant pain to palpation. No pain in the right upper quadrant. No hepato-splenomegaly. No masses noted. No rebound. No CVA tenderness. Musculoskeletal: Gross motor function of the upper and lower extremities is intact and unremarkable. Performing a straight leg raise with the right leg causes increased discomfort in his abdomen. Neurologic: Gross sensation is intact across the upper and lower extremities by soft touch. Course Administered Medications Discontinued Medications Ascorbic Acid (Ascorbic Acid 500 Mg Tab) 1,000 mg PO DAILY BRITTANY Stop: 05/05/25 08:59 Last Admin: 04/05/25 08:54 Dose: 1,000 mg Documented By: ZARA Atorvastatin Calcium (Atorvastatin 20 Mg Tab) 20 mg PO DAILY BRITTANY Stop: 05/05/25 08:59 Last Admin: 04/05/25 08:54 Dose: 20 mg Documented By: ZARA Dextrose (Dextrose 50% 50 Ml Syringe) 25 - 50 ml IV UD PRN; Protocol PRN Reason: Hypoglycemia Protocol Stop: 05/04/25 15:29 Last Admin: 04/05/25 11:49 Dose: 25 ml Documented By: ZARA Gabapentin (Gabapentin 100 Mg Cap) 100 mg PO DAILY BRITTANY Stop: 05/05/25 08:59 Last Admin: 04/05/25 08:55 Dose: 100 mg Documented By: ZARA Heparin Sodium (Porcine) (Heparin Sod 5,000 Unit/0.5 Ml Vial) 5,000 units SQ Q8 BRITTANY Stop: 05/04/25 21:59 Last Admin: 04/05/25 06:19 Dose: 5,000 units Documented By: Admin: 04/04/25 22:41 Dose: 5,000 units Documented By: JULIUS Heparin Sodium (Porcine) (Heparin Sod 5,000 Unit/0.5 Ml Vial) 5,000 units SQ Q12H BRITTANY Stop: 05/05/25 07:59 Last Admin: 04/05/25 09:06 Dose: 5,000 units Documented By: ZARA Sodium Chloride (Nss) 1,000 mls @ 125 mls/hr IV .Q8H STA Stop: 04/04/25 18:34 Last Infusion: 04/04/25 18:41 Dose: Infused Documented By: Admin: 04/04/25 10:47 Dose: 125 mls/hr Documented By: RHODA Sodium Chloride (Nss) 1,000 mls @ 80 mls/hr IV .[id number] BRITTANY Stop: 04/07/25 13:44 Last Admin: 04/05/25 14:51 Dose: 80 mls/hr Documented By: Infusion: 04/05/25 14:51 Dose: Infused Documented By: Infusion: 04/05/25 13:29 Dose: 0 mls/hr Documented By: Admin: 04/05/25 01:24 Dose: 80 mls/hr Documented By: Infusion: 04/05/25 01:24 Dose: Infused Documented By: Admin: 04/04/25 13:52 Dose: 80 mls/hr Documented By: VERONA Piperacillin Sod/Tazobactam Sod (Zosyn) 4.5 gm in 100 mls @ 25 mls/hr IV Q8H BRITTANY; Protocol Stop: 04/15/25 12:59 Last Infusion: 04/05/25 17:04 Dose: Infused Documented By: Admin: 04/05/25 12:57 Dose: 25 mls/hr Documented By: ZARA Piperacillin Sod/Tazobactam Sod (Zosyn) 4.5 gm in 100 mls @ 200 mls/hr IV NOW STA; Protocol Stop: 04/05/25 08:16 Last Infusion: 04/05/25 09:34 Dose: Infused Documented By: Admin: 04/05/25 08:57 Dose: 200 mls/hr Documented By: ZARA Insulin Aspart (Insulin Aspart Per Unit Charge) 0 units SC Q6 BRITTANY Stop: 05/04/25 17:59 Last Admin: 04/04/25 18:39 Dose: Not Given Documented By: ZARA Insulin Aspart (Insulin Aspart Per Unit Charge) 0 units SC ACHS BRITTANY Stop: 05/05/25 07:59 Last Admin: 04/05/25 12:10 Dose: Not Given Documented By: ZARA Co-signed By: [facility] Admin: 04/05/25 09:12 Dose: 7 units Documented By: ZARA Co-signed By: ELIZ Ioversol (Optiray 320 100ml) 94 ml IV ONCE ONE Stop: 04/04/25 11:47 Last Admin: 04/04/25 11:47 Dose: 94 ml Documented By: JOSE ENRIQUE Pantoprazole Sodium (Pantoprazole 40 Mg Tab) 40 mg PO DAILY BRITTANY Stop: 05/05/25 08:59 Last Admin: 04/05/25 08:54 Dose: 40 mg Documented By: ZARA Primidone (Primidone 50 Mg Tab) 50 mg PO TID BRITTANY Stop: 05/05/25 13:59 Last Admin: 04/05/25 14:47 Dose: 50 mg Documented By: ZARA Propranolol HCl (Propranolol Hcl La 80 Mg Capcr) 80 mg PO DAILY BRITTANY Stop: 05/05/25 08:59 Last Admin: 04/05/25 09:34 Dose: 80 mg Documented By: ZARA Tamsulosin HCl (Tamsulosin Hcl 0.4 Mg Cap) 0.4 mg PO DAILY BRITTANY Stop: 05/05/25 08:59 Last Admin: 04/05/25 08:54 Dose: 0.4 mg Documented By: ZARA Valacyclovir HCl (Valacyclovir Hcl 500 Mg Tablet) 500 mg PO DAILY BRITTANY Stop: 05/05/25 08:59 Last Admin: 04/05/25 08:54 Dose: Not Given Documented By: ZARA Medical Decision Making Differential Diagnosis Small bowel obstruction, acute appendicitis, cholelithiasis, cholecystitis, mesenteric adenitis, colitis, gastroenteritis, abdominal strain Medical Records Attestation: I reviewed the patient's medical records. Home Medications Current Medication List: was personally reviewed by me Laboratory Data CBC obtained today shows a mild elevation white count at 13.89. H&H of 17.9 and 53.2. Normal platelets. Mild elevation in neutrophils. Lipase is normal. LFTs are normal. Glucose is stable at 114. Essentially normal electrolytes. Normal BUN and creatinine. 04/05/25 07:25 04/05/25 07:25 Lab Results 04/04/25 Range/Units 10:25 WBC 13.89 H (4.8-10.8) K/ul RBC 5.54 (4.70-6.10) M/uL Hgb 17.9 (14.0-18.0) g/dl Hct 53.2 H (42.0-52.0) % MCV 96.0 (80.0-100.0) fL MCH 32.3 (25.0-34.0) pg MCHC 33.6 (32.0-36.0) g/dL RDW Std Deviation 53.2 H (36.4-46.3) fL RDW Coeff of Rosario 14.9 H (11.5-14.5) % Plt Count 161 (130-400) K/uL MPV 9.4 (9.4-12.4) fL Immature Gran % (Auto) 0.6 % Neut % (Auto) 81.2 % Lymph % (Auto) 8.9 % Union % (Auto) 8.6 % Eos % (Auto) 0.3 % Baso % (Auto) 0.4 % Neut # (Auto) 11.29 H (1.40-6.50) K/uL Lymph # (Auto) 1.24 (1.20-3.40) K/uL Union # (Auto) 1.19 H (0.11-0.59) K/uL Eos # (Auto) 0.04 (0.00-0.50) K/uL Baso # (Auto) 0.05 (0.00-0.20) K/uL Immature Gran # (Auto) 0.08 (0.01-0.20) K/uL Sodium 135 L (136-145) mmol/L Potassium 4.7 (3.5-5.1) mmol/L Chloride 101 (98-107) mmol/L Carbon Dioxide 30 (21-32) mmol/L Anion Gap 4 (3-11) BUN 13 (6-23) mg/dl Creatinine 1.10 (0.6-1.4) mg/dl Est Cr Clr Drug Dosing 64.9 ml/min eGFR 68.71 BUN/Creatinine Ratio 11.8 (10-20) Glucose 114 H (70-99(Fasting)) mg/dl Calcium 8.8 (8.6-10.3) mg/dl Total Bilirubin 0.8 (0.2-1.0) mg/dl AST 24 (13-39) U/L ALT 30 (7-52) U/L Alkaline Phosphatase 128 H (34-104) U/L Total Protein 7.2 (6.0-8.3) gm/dl Albumin 3.6 (3.4-5.0) gm/dl Globulin 3.6 (2.5-4.0) gm/dl Albumin/Globulin Ratio 1.0 (0.9-2) Lipase 15 (11-82) U/L Imaging Data My Impression: CT scan imaging of the abdomen and pelvis was obtained today. This was interpreted by me and read by radiology. It is positive for acute cholecystitis. appendix is normal. There is no evidence for small bowel obstruction. Chest x-ray obtained today was read by radiology. It shows no acute cardiopulmonary findings. No evidence for pneumonia. Blood Pressure Blood Pressure Findings: Elevated blood pressure Blood Pressure Disposition: elevated BP felt to be situational MDM Narrative The patient was evaluated in room B5. Conservative care measures were discussed. He was placed on a security monitor and remained in normal sinus rhythm with a rate in the 60s. No ectopy was noted. IV was established. Labs were obtained. He has a mild elevation in his white blood cell count. LFTs were unremarkable. Given his history of small bowel obstruction, CT scan imaging of the abdomen and pelvis with IV contrast was obtained. it is suggestive of acute cholecystitis. There is no evidence for acute appendicitis or small bowel obstruction. The general surgery team was consulted. Please see their dictation for final management. The patient remained n.p.o. while in the ED. He was offered pain medication and declined. He was hydrated with 1 L normal sterile saline at 125 mL/h. Impression & Plan Acute cholecystitis Admission to the medical team with general surgery consultation. The general surgery team has already seen him in the ED. Continue n.p.o. status for now. The patient was offered pain medication and declined. The patient care plan was discussed with Dr. Valenzuela. Discharge Plan Visit Data Chief Complaint: Abdominal Pain Stated Complaint: SEVERE ABD PAIN ED Provider: Parth Valenzuela ED Midlevel Provider: Charles Dc Discharge Problem: Acute cholecystitis Patient Disposition: Admitted As Inpatient Condition: Fair Discharge Instructions Interventions: ED Discharge Assessment Last Done: 04/04/25 14:23 ED DC CONDITION Conditon at Discharge Condition at Discharge: Fair
[2025-04-04 11:12] LABS: Alanine Aminotransferase 30.0 U/L (7-52); Albumin Globulin Ratio 1.0 (0.9-2); Alkaline Phosphatase 128.0 U/L (34-104); Anion Gap 4.0 (3-11); Bilirubin,Total 0.8 mg/dl (0.2-1.0); Blood Urea Nitrogen 13.0 mg/dl (6-23); Calcium 8.8 mg/dl (8.6-10.3); Carbon Dioxide 30.0 mmol/L (21-32); Chloride 101.0 mmol/L (98-107); Creatinine Clr Calc Pharmacy 64.9 ml/min; Globulin 3.6 gm/dl (2.5-4.0); Glucose 114.0 mg/dl (70-99(Fasting)); Lipase 15.0 U/L (11-82); Potassium 4.7 mmol/L (3.5-5.1); Sodium 135.0 mmol/L (136-145); Total Protein 7.2 gm/dl (6.0-8.3)
[2025-04-04] MEDS: OPTIRAY 320 100ml IV ONE (11:47)
--- NOTE | 2025-04-04 12:05 | CT Scan Report ---
CT SCAN OF THE ABDOMEN AND PELVIS WITH IV CONTRAST CLINICAL HISTORY: Abdominal pain and nausea. History of small bowel obstruction. COMPARISON STUDY: CT of the abdomen and pelvis February 11, 2025. Abdominal ultrasound February 09, 2025. TECHNIQUE: Following the IV administration of 94 cc of Optiray 320, CT scan of the abdomen and pelvi s is performed from the lung bases to the proximal femora. Images are reviewed in the axial, sagittal , and coronal planes. IV contrast was administered without complication. A dose lowering technique wa s utilized adhering to the principles of ALARA. CT DOSE: 1341.98 mGy.cm FINDINGS: Linear subpleural right lower lobe density represents scarring/resolving pulmonary infarct when correlating with prior CTA of the chest. There is a small hiatal hernia. No pneumatosis, free ai r or portal venous gas is present. There are no hepatic lesions and there is no biliary or pancreatic ductal dilatation. The gallbladder is mildly distended. There is gallbladder wall thickening with mi ld pericholecystic infiltration. Multiple gallstones within the gallbladder are present. The spleen, adrenal glands, right kidney and pancreas are unremarkable. There is a 2.7 cm left renal cyst. There is no hydronephrosis. Extensive aortoiliac atherosclerotic plaque is present. Sigmoid anastomosis is noted. No evidence for a bowel obstruction. Colonic diverticulosis without evidence for acute diverti culitis. The appendix is normal. There is no lymphadenopathy. The prostate is enlarged, measuring 5.5 cm in transverse diameter. IMPRESSION: 1. Findings consistent with acute cholecystitis. 2. No biliary ductal dilatation. 3. No evidence for a bowel obstruction. 4. Colonic diverticulosis. No evidence for acute diverticulitis. Status post sigmoid resection. ACT 112: Negative or not required by law. Electronically signed by: Yoel Barker M.D. 04/04/2025 12:03 PM
[2025-04-04] MEDS ORDERED: CeleBREX 200 MG CAP PO PRN (13:39)
[2025-04-04] MEDS ORDERED: MoRPHine SULFATE 2 MG/ML CARP IV PRN (13:42)
[2025-04-04] MEDS ORDERED: ONDANSETRON INJ 2 MG/ML 2 ML VIAL IV PRN (13:42)
[2025-04-04] MEDS ORDERED: ACETAMINOPHEN 325 MG TAB PO PRN (13:42)
[2025-04-04] MEDS ORDERED: PHARMACY GLYCEMIC MGMT CONSULT PRN (13:45)
[2025-04-04] MEDS: SODIUM CHLORIDE 0.9% 1,000 ML IV SCH (13:52)
--- NOTE | 2025-04-04 14:40 | History & Physical Report ---
Date of Service April 04, 2025 Assessment & Plan (1) Acute cholecystitis: Plan: -CT showing acute cholecystitis -NPO -IVF -pain control with morphine -zofran prn -General surgery consulted -plan for OR in the AM (2) Bilateral pulmonary embolism: Plan: -pradaxa on hold 2nd to surgery (3) BPH (benign prostatic hyperplasia): Plan: -tamsulosin (4) Hypertension: Plan: -propranolol (5) HLD (hyperlipidemia): Plan: -atorvastatin (6) Diabetes: Plan: -borderline -hold metformin -pharm consult for glycemic management Plan Heparin SQ for DVT px History of Present Illness Chief Complaint: Abdominal pain Primary Care Provider: Silverio Pride Pt is a 79 y/o male with pmh of DM, PE/DVT on pradaxa, HLD, GERD, BPH, HTN, who presents with RLQ abdominal pain that started last night after eating dinner. Pt denies any nausea/vomiting, no fevers. Pt has had history of sigmoid resection 2nd to diverticulitis, with previous SBO. In the ER patient had CT a/p which was negative for obstruction, but did show acute cholecystitis. WBC 13k and alk phos mildly elevated at 128. Dr. Estrada was consulted who plans to take patient to the OR in the am for cholecystectomy. Allergies Allergy/AdvReac Type Severity Reaction Status Date / Time No Known Allergies Allergy Mild NONE Verified 03/17/25 16:24 Home Medications Medication Instructions Recorded Confirmed Type tadalafil 10 mg tablet 10 mg PO UD 05/07/23 03/17/25 History tamsulosin 0.4 mg capsule 0.4 mg PO HS 05/07/23 03/17/25 History triazolam 0.25 mg tablet 0.25 mg PO HS PRN Insomnia 05/07/23 03/17/25 History valacyclovir 500 mg tablet 500 mg PO DAILY 05/07/23 03/17/25 History atorvastatin 20 mg tablet 20 mg PO DAILY 03/09/24 03/17/25 History propranolol 80 mg capsule,24 80 mg PO DAILY #90 caps 09/14/24 03/17/25 Rx hr,extended release gabapentin 100 mg capsule 100 mg PO DAILY 03/08/25 03/17/25 History metformin 500 mg tablet 500 mg PO DAILY 03/08/25 03/17/25 History amino acids 1 cap PO DAILY 03/17/25 03/17/25 History arginine (L-arginine) 500 mg tablet 500 mg PO DAILY 03/17/25 03/17/25 History ascorbic acid (vitamin C) 1,000 mg 1,000 mg PO DAILY 03/17/25 03/17/25 History capsule beta carotene 7,500 mcg (25,000 7,500 mcg PO DAILY 03/17/25 03/17/25 History unit) capsule cholecalciferol (vitamin D3) 10 10 mcg PO DAILY 03/17/25 03/17/25 History mcg (400 unit) tablet coQ10 (ubiquinol) 100 mg capsule 100 mg PO DAILY 03/17/25 03/17/25 History (Qunol Darren CoQ10) echinacea 400 mg capsule 400 mg PO DAILY 03/17/25 03/17/25 History rabeprazole 20 mg tablet,delayed 20 mg PO DAILY 03/17/25 03/17/25 History release testosterone cypionate 200 mg/mL 100 mg IM WK 03/17/25 03/17/25 History intramuscular oil vitamin A palmitate 3,000 mcg 1,500 mcg PO DAILY 03/17/25 03/17/25 History (10,000 unit) tablet primidone 50 mg tablet See Rx Instructions PO .COMPLEX 03/23/25 Rx #90 tabs dabigatran etexilate 150 mg capsule 150 mg PO BID #180 caps 03/29/25 Rx celecoxib 200 mg capsule 200 mg PO DAILY PRN joint pain 04/04/25 04/04/25 History famotidine 40 mg tablet 40 mg PO DAILY 04/04/25 04/04/25 History omeprazole 40 mg capsule,delayed 40 mg PO DAILY 04/04/25 04/04/25 History release tamsulosin 0.4 mg capsule 0.4 mg PO DAILY 04/04/25 04/04/25 History Past Med/Surg History Problem List (Updated 04/04/25 @ 14:45 by Perry Holman MD) Diabetes HLD (hyperlipidemia) BPH (benign prostatic hyperplasia) Acute cholecystitis Bilateral pulmonary embolism DVT (deep venous thrombosis) Sciatica associated with disorder of lumbar spine Aortic stenosis On statin therapy Diffuse abdominal pain (Acute) SBO (small bowel obstruction) (Acute) Abdominal distension (Acute) LAFB (left anterior fascicular block) First degree atrioventricular block by electrocardiogram Cardiovascular event risk Abnormal ECG Mitral regurgitation Aortic valve sclerosis History of diverticulitis (Chronic) DDD (degenerative disc disease), cervical Partial small bowel obstruction Cervical radiculopathy (Chronic) Carpal tunnel syndrome, bilateral (Chronic) Left ankle pain Left ankle sprain Peroneal tendonitis of left lower extremity Flat foot Impotence Peptic reflux disease Testicular hypofunction Sleep apnea, obstructive BPH loc w urin obs/LUTS Sciatica Lyme disease Tingling Vertigo Vertebral artery stenosis Hypogonadism in male Urethral stricture Idiopathic polyneuropathy Medical History BPH w urinary obs/LUTS Essential tremor GERD (gastroesophageal reflux disease) Hypertension Tarsal tunnel syndrome Malaise and fatigue Deviated septum Dizziness and giddiness Vertigo Tinea pedis Allergic rhinitis Family History Father Hypertension Grandfather Prostate cancer Social History Smoking Status: Former smoker Second Hand Exposure: No; Do You Dip or Chew Tobacco: No; Hx Alcohol Use: No Hx Substance Use: No Preferred Language: Nepalese Communication Ability: Effective Visual Impairment: No Limitations Hearing Ability: Normal Shoe Fitter Required: No Beliefs That Will Affect Care: None marital status: Current Living Situation: Spouse current occupational status: employed 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 HENT: Negative for neck pain/stiffness, headache, congestion, sore throat, swelling. EYES: Negative for discharge/pain or vision changes. RESP: Negative for cough/hemoptysis and shortness of breath. CV: Negative chest pain, difficulty breathing, palpitations. ABD: RLQ abdomial pain : Negative increase frequency, dysuria, blood in urine or stool. MUSC: Negative for muscle aches, edema. SKIN: Negative rash, lesions/sores. NEURO: Negative headache, dizziness, weakness. Physical Exam Physical Exam: GENERAL APPEARANCE NAD, activity normal for age, well developed/ well nourished, no cyanosis, pallor, or diaphoresis. EYES lids/conjunctiva normal. EARS/NOSE/THROAT Mucous membranes moist, nares normal, lips/teeth normal uvula midline without oral pharyngeal erythema, exudate or swelling TMs normal bilaterally. No lymphangitis/lymphedema. HEAD/NECK normocephalic atraumatic, no facial trauma, neck is supple. RESPIRATORY respiratory effort normal, speaks in full sentences, no tripod position, no accessory muscle use. Lungs clear to auscultation without rhonchi, wheezes, rales CARDIAC Regular rate and rhythm, no edema. ABDOMINAL RLQ tenderness MUSCLES/EXTREMITIES No abnormal range of motion, no swelling. SKIN Warm, pink and dry. No rashes, dermatoses, petechiae or lesions. NEUROLOGICAL Speech is clear and appropriate. Normal level of consciousness. Gait and coordination are normal. 5/5 strength in all extremities. PSYCH Normal mood and affect. Judgement/competence is appropriate Results & Data Results & Data Vital Signs (Past 12 Hours) Vital Signs Temp Pulse Resp BP Pulse Ox O2 Del Method 04/04/25 14:23 68 19 182/92 H 96 Room Air 04/04/25 14:12 67 21 96 04/04/25 14:06 69 21 96 04/04/25 14:00 182/92 H 04/04/25 14:00 182/92 H 04/04/25 13:57 69 20 96 04/04/25 13:48 68 22 97 04/04/25 13:46 185/89 H 04/04/25 13:46 185/89 H 04/04/25 13:45 71 21 95 04/04/25 12:32 66 22 99 04/04/25 12:30 184/84 H 04/04/25 12:30 184/84 H 04/04/25 12:30 184/84 H 04/04/25 12:30 184/84 H 04/04/25 12:29 66 25 H 99 04/04/25 12:11 64 18 97 04/04/25 12:08 67 21 98 04/04/25 12:00 164/83 H 04/04/25 12:00 164/83 H 04/04/25 11:56 66 20 98 04/04/25 11:56 65 04/04/25 11:54 65 21 99 04/04/25 11:30 187/98 H 04/04/25 11:26 68 17 96 04/04/25 11:23 69 18 97 04/04/25 11:15 68 17 96 04/04/25 11:00 69 21 186/93 H 04/04/25 10:53 72 16 97 04/04/25 10:45 70 21 96 04/04/25 10:35 95 Room Air 04/04/25 10:10 36.7 C 73 18 192/102 H 98 Room Air PG Care Time/CCT Total # of Minutes Spent Total Time Spent with Patient: Total time spent is greater than 50% in coordination of care (as documented) at patient's floor/unit and/or counseling patient: Coding Level of Care Code 21326 INT INP/OBS CARE 255MIN Diagnoses Acute cholecystitis K81.0 Bilateral pulmonary embolism I26.99 BPH (benign prostatic hyperplasia) N40.0 Hypertension I10 HLD (hyperlipidemia) E78.5 Diabetes E11.9
--- NOTE | 2025-04-04 14:43 | Surgery Consultation ---
<Statement entered by Savannah Estrada, - 04/04/25 15:20> I have seen and examined this patient with the surgical [facility]PARTMENT, I agree with this plan. Date of Consultation April 04, 2025 Assessment & Plan (1) Acute cholecystitis: Patient was seen and evaluated in the emergency department this afternoon with attending surgeon, Dr. Estrada. -Patient currently with improvement of abdominal pain but is still slightly tender in the RUQ on exam. States he feels hungry and denies any ongoing nausea or vomiting. -Due to the patient being on Pradaxa for recent PE/DVT , this will need to be held for a few days prior to surgical intervention -For now will allow patient to have a low fiber diet -IV antibiotic coverage with Zosyn -Will also order a RUQ US to further evaluate for any possible CBD dilation -Medical management per primary team, patient will also need medical clearance. -Surgery will continue to follow and will provide further surgical plans in the upcoming days. History of Present Illness Reason for Consultation: acute cholecystitis History of Present Illness The patient is a 79-year-old male who presented to the emergency department with complaints of abdominal pain that started last evening shortly after eating dinner. The patient states he had an Croatian dinner that had a lot of cheese, and his pain started roughly 3-4 hours afterwards. At first the pain was in the upper abdomen and then became generalized throughout his abdomen. He did have some nausea however no episodes of vomiting. He does admit to associated chills and sweats throughout the night. The pain continued to persist until today which made him come into the emergency department. The patient states that recently he was diagnosed with pneumonia roughly 2 months ago, and during a PCPs visit last month he was also complaining about leg pain and underwent further workup and was found to have a DVT and PE. The patient also notes that during his PE work- up he was told he has a "bad gallbladder" but was put off at the time due to the patient being asymptomatic. Since then, the patient states that at times he does experience some stomach issues however always associated it to eating too much/indigestion. The patient is currently taking blood thinners due to recent PE/DVTs and his last dose was this morning prior to coming to the emergency department. The patient was worked up in the emergency room and was found to have an elevated WBC at 13.[address] findings concerning for acute cholecystitis. General surgery was consulted for further evaluation. The patient was seen and evaluated in the emergency department this afternoon with attending surgeon, Dr. Estrada. He is resting comfortably in bed, VSS, and is nontoxic appearing. The patient does have some mild tenderness in the RUQ on exam otherwise abdomen is benign. The patient states that he has had previous abdominal surgery of a Martin's procedure for perforated diverti culitis and did have an ostomy reversal shortly afterwards in 2009. He states he has also had a history of 2 SBOs in the past, which one of them did require surgical intervention. States his last bowel obstruction was roughly 3 years ago. Allergies Allergy/AdvReac Type Severity Reaction Status Date / Time No Known Allergies Allergy Mild NONE Verified 03/17/25 16:24 Home Medications Medication Instructions Recorded Confirmed Type tadalafil 10 mg tablet 10 mg PO UD 05/07/23 04/04/25 History tamsulosin 0.4 mg capsule 0.4 mg PO HS 05/07/23 04/04/25 History triazolam 0.25 mg tablet 0.25 mg PO HS PRN Insomnia 05/07/23 04/04/25 History valacyclovir 500 mg tablet 500 mg PO DAILY 05/07/23 04/04/25 History atorvastatin 20 mg tablet 20 mg PO DAILY 03/09/24 04/04/25 History propranolol 80 mg capsule,24 80 mg PO DAILY #90 caps 09/14/24 04/04/25 Rx hr,extended release gabapentin 100 mg capsule 100 mg PO DAILY 03/08/25 04/04/25 History metformin 500 mg tablet 500 mg PO DAILY 03/08/25 04/04/25 History amino acids 1 cap PO DAILY 03/17/25 04/04/25 History arginine (L-arginine) 500 mg tablet 500 mg PO DAILY 03/17/25 04/04/25 History ascorbic acid (vitamin C) 1,000 mg 1,000 mg PO DAILY 03/17/25 04/04/25 History capsule beta carotene 7,500 mcg (25,000 7,500 mcg PO DAILY 03/17/25 04/04/25 History unit) capsule cholecalciferol (vitamin D3) 10 10 mcg PO DAILY 03/17/25 04/04/25 History mcg (400 unit) tablet coQ10 (ubiquinol) 100 mg capsule 100 mg PO DAILY 03/17/25 04/04/25 History (Qunol Darren CoQ10) echinacea 400 mg capsule 400 mg PO DAILY 03/17/25 04/04/25 History rabeprazole 20 mg tablet,delayed 20 mg PO DAILY 03/17/25 04/04/25 History release testosterone cypionate 200 mg/mL 100 mg IM WK 03/17/25 04/04/25 History intramuscular oil vitamin A palmitate 3,000 mcg 1,500 mcg PO DAILY 03/17/25 04/04/25 History (10,000 unit) tablet primidone 50 mg tablet See Rx Instructions PO .COMPLEX 03/23/25 04/04/25 Rx #90 tabs dabigatran etexilate 150 mg capsule 150 mg PO BID #180 caps 03/29/25 04/04/25 Rx celecoxib 200 mg capsule 200 mg PO DAILY PRN joint pain 04/04/25 04/04/25 History famotidine 40 mg tablet 40 mg PO DAILY 04/04/25 04/04/25 History omeprazole 40 mg capsule,delayed 40 mg PO DAILY 04/04/25 04/04/25 History release Patient History Medical History BPH w urinary obs/LUTS Essential tremor GERD (gastroesophageal reflux disease) Hypertension Tarsal tunnel syndrome Malaise and fatigue Deviated septum Dizziness and giddiness Vertigo Tinea pedis Allergic rhinitis Family History Father Hypertension Grandfather Prostate cancer Social History Smoking Status: Former smoker Second Hand Exposure: No; Do You Dip or Chew Tobacco: No; Hx Alcohol Use: No Hx Substance Use: No Preferred Language: Cymro Communication Ability: Effective Visual Impairment: No Limitations Hearing Ability: Normal Sheet Tester Required: No Beliefs That Will Affect Care: None marital status: Current Living Situation: Spouse current occupational status: employed 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 Feels Safe at Home: Yes Diet: regular Assistive Devices: None Review of Systems Constitutional: + chills and + sweats; no weakness Respiratory: no cough and no chest congestion Cardiovascular: no chest pain, no palpitations and no syncope Gastrointestinal: + abdominal pain and + nausea; no vomiti ng Genitourinary: no dysuria, no difficulty urinating or no flank pain Physical Exam Constitutional: WD/WN, vitals as above Respiratory: normal respiratory effort, lungs clear to auscultation Cardiovascular: Rate/Rhythm: regular rate Gastrointestinal (Abdomen): Abdomen soft, nondistended, mild +TTP in the RUQ No rebound, guarding or signs of peritonitis Skin: no rashes, warm and dry Psychiatric: A+Ox3, euthymic affect Results & Data Vital Signs (Past 12 Hours) Vital Signs Temp Pulse Resp BP Pulse Ox O2 Del Method 04/04/25 14:23 68 19 182/92 H 96 Room Air 04/04/25 14:12 67 21 96 04/04/25 14:06 69 21 96 04/04/25 14:00 182/92 H 04/04/25 14:00 182/92 H 04/04/25 13:57 69 20 96 04/04/25 13:48 68 22 97 04/04/25 13:46 185/89 H 04/04/25 13:46 185/89 H 04/04/25 13:45 71 21 95 04/04/25 12:32 66 22 99 04/04/25 12:30 184/84 H 04/04/25 12:30 184/84 H 04/04/25 12:30 184/84 H 04/04/25 12:30 184/84 H 04/04/25 12:29 66 25 H 99 04/04/25 12:11 64 18 97 04/04/25 12:08 67 21 98 04/04/25 12:00 164/83 H 04/04/25 12:00 164/83 H 04/04/25 11:56 66 20 98 04/04/25 11:56 65 04/04/25 11:54 65 21 99 04/04/25 11:30 187/98 H 04/04/25 11:26 68 17 96 04/04/25 11:23 69 18 97 04/04/25 11:15 68 17 96 04/04/25 11:00 69 21 186/93 H 04/04/25 10:53 72 16 97 04/04/25 10:45 70 21 96 04/04/25 10:35 95 Room Air 04/04/25 10:10 36.7 C 73 18 192/102 H 98 Room Air Diagnostic Findings CT SCAN OF THE ABDOMEN AND PELVIS WITH IV CONTRAST CLINICAL HISTORY: Abdominal pain and nausea. History of small bowel obstruction. COMPARISON STUDY: CT of the abdomen and pelvis February 11, 2025. Abdominal ultrasound February 09, 2025. TECHNIQUE: Following the IV administration of 94 cc of Optiray 320, CT scan of the abdomen and pelvis is performed from the lung bases to the proximal femora. Images are reviewed in the axial, sagittal, and coronal planes. IV contrast was administered without complication. A dose lowering technique was utilized adhering to the principles of ALARA. CT DOSE: 1341.98 mGy.cm FINDINGS: Linear subpleural right lower lobe density represents scarring/resolving pulmonary infarct when correlating with prior CTA of the chest. There is a small hiatal hernia. No pneumatosis, free air or portal venous gas is present. There are no hepatic lesions and there is no biliary or pancreatic ductal dilatation. The gallbladder is mildly distended. There is gallbladder wall thickening with mild pericholecystic infiltration. Multiple gallstones within the gallbladder are present. The spleen, adrenal glands, right kidney and pancreas are unremarkable. There is a 2.7 cm left renal cyst. There is no hydronephrosis. Extensive aortoiliac atherosclerotic plaque is present. Sigmoid anastomosis is noted. No evidence for a bowel obstruction. Colonic diverticulosis without evidence for acute diverticulitis. The appendix is normal. There is no lymphadenopathy. The prostate is enlarged, measuring 5.5 cm in transverse diameter. IMPRESSION: 1. Findings consistent with acute cholecystitis. 2. No biliary ductal dilatation. 3. No evidence for a bowel obstruction. 4. Colonic diverticulosis. No evidence for acute diverticulitis. Status post sigmoid resection. PG Care Time/CCT Total # of Minutes Spent Total Time Spent with Patient: Total time spent is greater than 50% in coordination of care (as documented) at patient's floor/unit and/or counseling patient: [place] [address] Office/Outpt Visit, New Patient Type New History Problem Focused Exam Problem Focused Medical Decision Making Straight Forward Diagnoses Acute cholecystitis K81.0
[2025-04-04] MEDS ORDERED: GLUCOSE 40% GEL 15 GM TUBE PO PRN (15:30)
[2025-04-04] MEDS ORDERED: GLUCAGON FOR INJ 1 MG VIAL SQ PRN (15:30)
[2025-04-04] MEDS ORDERED: CARBOHYDRATES FOR HYPOGLYCEMIA PO PRN (15:30)
[2025-04-04] MEDS ORDERED: GLUCOSE 10 TAB/TUBE PO PRN (15:30)
[2025-04-04] MEDS: INSULIN ASPART PER UNIT CHARGE SC SCH (18:39)
[2025-04-04 20:06] LABS: Appearance Urine Clear (Clear); Bacteria Urine Automated None Seen (None Seen); Cast Urine Automated 0-2 /lpf (0-2); Epithelial Cell Urine Auto 0-2 /hpf (0-2); Glucose Urine UA Negative (Negative); RBC Urine Automated 0-2 /hpf (0-2); WBC Urine Automated 0-5 /hpf (0-5)
--- NOTE | 2025-04-04 20:17 | Ultrasound Report ---
ABDOMINAL ULTRASOUND LIMITED INDICATION: Abdominal pain. TECHNIQUE: Limited upper quadrant ultrasound examination of the abdomen. COMPARISON: None. FINDINGS: LIVER: Size: Mildly enlarged, measuring up to 6.0 cm in craniocaudal length. Echogenicity: Increased Surface nodularity: None Mass: None identified. BILE DUCTS: Intrahepatic ducts: Nondilated Common bile duct diameter: 4 mm GALLBLADDER: Mildly distended with shadowing stones and sludge. Mild gallbladder wall thickening measuring up to 6 mm. No pericholecystic fluid is identified. Sonographic Carr sign: Absent PANCREAS: Obscured by bowel gas. RIGHT KIDNEY LENGTH: 8.7 cm No shadowing stones or hydronephrosis identified. The right kidney is echogenic ASCITES: None identified. IMPRESSION: Echogenic and mildly enlarged liver suggesting a parenchymal process including but not limited to steatosis. Cholelithiasis. Mild gallbladder wall thickening is not specific in the setting of suspected hepatic parenchymal process. No convincing evidence of cholecystitis in this ultrasound however if clinical concerns remain, HIDA scan may be considered. Echogenic kidney suggesting a medical renal disease. Electronically signed by Obed Junior 04-04-2025 8:17 PM
[2025-04-04] MEDS: HEPARIN SOD 5,000 UNIT/0.5 ML VIAL SQ SCH (22:41)
[2025-04-05] MEDS ORDERED: CARBOHYDRATES FOR HYPOGLYCEMIA PO PRN (07:57)
[2025-04-05] MEDS ORDERED: GLUCAGON FOR INJ 1 MG VIAL SQ PRN (07:57)
[2025-04-05] MEDS ORDERED: DEXTROSE 50% 50 ML SYRINGE IV PRN (07:57)
[2025-04-05] MEDS ORDERED: GLUCOSE 10 TAB/TUBE PO PRN (07:57)
[2025-04-05] MEDS ORDERED: GLUCOSE 40% GEL 15 GM TUBE PO PRN (07:57)
[2025-04-05 08:17] LABS: Hematocrit (blood only) 47.7 % (42.0-52.0); Hemoglobin 15.6 g/dl (14.0-18.0); Mean Corpuscular Hemoglobin 31.5 pg (25.0-34.0); Mean Corpuscular Volume 96.4 fL (80.0-100.0); Platelet Count 128 K/uL (130-400); RDW Standard Deviation 55.9 fL (36.4-46.3); Red Blood Count 4.95 M/uL (4.70-6.10); White Blood Count 8.23 K/ul (4.8-10.8)
--- NOTE | 2025-04-05 08:19 | XRay Report ---
XR chest 1V portable CLINICAL HISTORY: pre-op COMPARISON STUDY: Chest CT February 10, 2025. Chest radiograph February 11, 2025. FINDINGS: No pneumothorax or pleural effusion is present. There is no evidence for pulmonary edema. C ardiomegaly is again noted. Mediastinal contours are stable. There is no consolidation to suggest pne umonia. IMPRESSION: No acute cardiopulmonary findings. ACT 112: Negative or not required by law. Electronically signed by: Yoel Barker M.D. 04/05/2025 8:17 AM
[2025-04-05 08:40] LABS: Alanine Aminotransferase 21.0 U/L (7-52); Albumin Globulin Ratio 1.2 (0.9-2); Alkaline Phosphatase 83.0 U/L (34-104); Anion Gap 4.0 (3-11); Bilirubin,Total 0.7 mg/dl (0.2-1.0); Blood Urea Nitrogen 10.0 mg/dl (6-23); Calcium 7.8 mg/dl (8.6-10.3); Carbon Dioxide 29.0 mmol/L (21-32); Chloride 104.0 mmol/L (98-107); Creatinine Clr Calc Pharmacy 78.4 ml/min; Globulin 2.6 gm/dl (2.5-4.0); Glucose 84.0 mg/dl (70-99(Fasting)); Potassium 3.9 mmol/L (3.5-5.1); Sodium 137.0 mmol/L (136-145); Total Protein 5.6 gm/dl (6.0-8.3)
[2025-04-05] MEDS: TAMSULOSIN HCL 0.4 MG CAP PO SCH (08:54)
[2025-04-05] MEDS: ATORVASTATIN 20 MG TAB PO SCH (08:54)
[2025-04-05] MEDS: ASCORBIC ACID 500 MG TAB PO SCH (08:54)
[2025-04-05] MEDS: GABAPENTIN 100 MG CAP PO SCH (08:55)
[2025-04-05] MEDS: PIPERACILLIN/TAZOBACTAM 4.5 GM/100 ML BAG IV STA (08:57)
[2025-04-05] MEDS: HEPARIN SOD 5,000 UNIT/0.5 ML VIAL SQ SCH (09:06)
[2025-04-05] MEDS: INSULIN ASPART PER UNIT CHARGE SC SCH (09:12)
[2025-04-05] MEDS: PROPRANOLOL HCL LA 80 MG CAPCR PO SCH (09:34)
--- NOTE | 2025-04-05 11:16 | Surgery Progress Note ---
Date of Service April 05, 2025 Assessment & Plan (1) Acute cholecystitis: (2) Bilateral pulmonary embolism: (3) DVT (deep venous thrombosis): Plan Ultrasound with mild gallbladder wall thickening at 6 mm , no pericholecystic fluid, negative Carr's sign. Abdominal pain minimal yesterday- 10/09. No pain this morning. Severe pain Saturday evening (similar to episodes of SBO in past). Examination benign with no tenderness in RUQ. Will plan to get a HIDA scan as CT scan and ultrasound conflicting and benign examination today as we are still holding Pradaxa for surgical intervention. Personally reviewed CT scan images and there is moderate amount of gallbladder wall thickening. Continue current medical management. IV zosyn. Discussed with Dr. Galindo who agrees with above. Admission and Anticipated Discharge Date Admission Date: April 04, 2025 Subjective feeling good today, no more abdominal pain feeling less bloated no nausea or vomiting tolerated low fat diet x 2 now without pain pain feels similar to pain with prior SBO -generalized at first and radiation straight to back. Has not had abdominal pain with eating or any postprandial nausea, bloating in last few weeks. Passing gas but hasnt had a bowel movement in a few days, normall has formed stool daily to every other day. no fever or chills Physical Exam Constitutional: WD/WN, vitals as above cooperative and comfortable; not ill appearing Respiratory: normal respiratory effort, lungs clear to auscultation Cardiovascular: Rate/Rhythm: regular rate and regular rhythm Heart Sounds: normal S1, normal S2 and + murmur Gastrointestinal (Abdomen): Inspection/Auscultation: + abdominal surgical scar (midline laparotomy scar) Percussion/Palpation: abdomen nontender, no guarding, abdomen not rigid and abdomen not firm Skin: no rashes, warm and dry Psychiatric: Orientation: alert and oriented x 3 Results & Data Vital Signs (Past 12 Hours) Vital Signs Temp Pulse Resp BP Pulse Ox O2 Del Method 04/05/25 09:33 62 95 Room Air 04/05/25 07:47 Room Air 04/05/25 07:37 36.4 C L 56 L 14 144/74 H 96 Room Air Laboratory Results 04/05/25 04/04/25 04/04/25 Range/Units 07:25 19:49 10:25 WBC 8.23 (4.8-10.8) K/ul RBC 4.95 (4.70-6.10) M/uL Hgb 15.6 (14.0-18.0) g/dl Hct 47.7 (42.0-52.0) % MCV 96.4 (80.0-100.0) fL MCH 31.5 (25.0-34.0) pg MCHC 32.7 (32.0-36.0) g/dL RDW Std Deviation 55.9 H (36.4-46.3) fL RDW Coeff of Rosario 15.6 H (11.5-14.5) % Plt Count 128 L (130-400) K/uL MPV 9.6 (9.4-12.4) fL Sodium 137 135 L (136-145) mmol/L Potassium 3.9 4.7 (3.5-5.1) mmol/L Chloride 104 101 (98-107) mmol/L Carbon Dioxide 29 30 (21-32) mmol/L Anion Gap 4 4 (3-11) BUN 10 13 (6-23) mg/dl Creatinine 0.91 1.10 (0.6-1.4) mg/dl Est Cr Clr Drug Dosing 78.4 64.9 ml/min eGFR 86.27 68.71 BUN/Creatinine Ratio 11.0 11.8 (10-20) Glucose 84 114 H (70-99(Fasting)) mg/dl Calcium 7.8 L 8.8 (8.6-10.3) mg/dl Total Bilirubin 0.7 0.8 (0.2-1.0) mg/dl AST 19 24 (13-39) U/L ALT 21 30 (7-52) U/L Alkaline Phosphatase 83 128 H (34-104) U/L Total Protein 5.6 L D 7.2 (6.0-8.3) gm/dl Albumin 3.0 L 3.6 (3.4-5.0) gm/dl Globulin 2.6 3.6 (2.5-4.0) gm/dl Albumin/Globulin Ratio 1.2 1.0 (0.9-2) Lipase 15 (11-82) U/L Urine Color Yellow Urine Appearance Clear (Clear) Urine pH 7.0 (4.5-7.5) Ur Specific Derry 1.044 H (1.000-1.030) Urine Protein 1+ H (Negative) Urine Glucose (UA) Negative (Negative) Urine Ketones Trace H (Negative) Urine Blood Negative (Negative) Urine Nitrite Negative (Negative) Urine Bilirubin Negative (Negative) Urine Urobilinogen Negative (Negative) Ur Leukocyte Esterase Negative (Negative) Urine WBC (Auto) 0-5 (0-5) /hpf Urine RBC (Auto) 0-2 (0-2) /hpf U Hyaline Cast (Auto) 0-2 (0-2) /lpf U Epithel Cells (Auto) 0-2 (0-2) /hpf Urine Bacteria (Auto) None Seen (None Seen) Urine Comment Diagnostic Findings ABDOMINAL ULTRASOUND LIMITED INDICATION: Abdominal pain. TECHNIQUE: Limited upper quadrant ultrasound examination of the abdomen. COMPARISON: None. FINDINGS: LIVER: Size: Mildly enlarged, measuring up to 6.0 cm in craniocaudal length. Echogenicity: Increased Surface nodularity: None Mass: None identified. BILE DUCTS: Intrahepatic ducts: Nondilated Common bile duct diameter: 4 mm GALLBLADDER: Mildly distended with shadowing stones and sludge. Mild gallbladder wall thickening measuring up to 6 mm. No pericholecystic fluid is identified. Sonographic Carr sign: Absent PANCREAS: Obscured by bowel gas. RIGHT KIDNEY LENGTH: 8.7 cm No shadowing stones or hydronephrosis identified. The right kidney is echogenic ASCITES: None identified. IMPRESSION: Echogenic and mildly enlarged liver suggesting a parenchymal process including but not limited to steatosis. Cholelithiasis. Mild gallbladder wall thickening is not specific in the setting of suspected hepatic parenchymal process. No convincing evidence of cholecystitis in this ultrasound however if clinical concerns remain, HIDA scan may be considered. CT SCAN OF THE ABDOMEN AND PELVIS WITH IV CONTRAST CLINICAL HISTORY: Abdominal pain and nausea. History of small bowel obstruction. COMPARISON STUDY: CT of the abdomen and pelvis February 11, 2025. Abdominal ultrasound February 09, 2025. TECHNIQUE: Following the IV administration of 94 cc of Optiray 320, CT scan of the abdomen and pelvis is performed from the lung bases to the proximal femora. Images are reviewed in the axial, sagittal, and coronal planes. IV contrast was administered without complication. A dose lowering technique was utilized adhering to the principles of ALARA. CT DOSE: 1341.98 mGy.cm FINDINGS: Linear subpleural right lower lobe density represents scarring/resolving pulmonary infarct when correlating with prior CTA of the chest. There is a small hiatal hernia. No pneumatosis, free air or portal venous gas is present. There are no hepatic lesions and there is no biliary or pancreatic ductal dilatation. The gallbladder is mildly distended. There is gallbladder wall thickening with mild pericholecystic infiltration. Multiple ga llstones within the gallbladder are present. The spleen, adrenal glands, right kidney and pancreas are unremarkable. There is a 2.7 cm left renal cyst. There is no hydronephrosis. Extensive aortoiliac atherosclerotic plaque is present. Sigmoid anastomosis is noted. No evidence for a bowel obstruction. Colonic diverticulosis without evidence for acute diverticulitis. The appendix is normal. There is no lymphadenopathy. The prostate is enlarged, measuring 5.5 cm in transverse diameter. IMPRESSION: 1. Findings consistent with acute cholecystitis. 2. No biliary ductal dilatation. 3. No evidence for a bowel obstruction. 4. Colonic diverticulosis. No evidence for acute diverticulitis. Status post sigmoid resection. Personally reviewed CT scan images and ultrasound images above.
[2025-04-05] MEDS: DEXTROSE 50% 50 ML SYRINGE IV PRN (11:49)
[2025-04-05] MEDS: PIPERACILLIN/TAZOBACTAM 4.5 GM/100 ML BAG IV SCH (12:57)
[2025-04-05] MEDS: PRIMIDONE 50 MG TAB PO SCH (14:47)
--- NOTE | 2025-04-05 14:50 | Nuclear Medicine Report ---
NM hepatobiliary CLINICAL HISTORY: 79 years-old Male with eval for cystic duct obstruction. Acute right upper quadran t abdominal pain TECHNIQUE: Sequential anterior abdominal images were obtained through 75 minutes following the intra venous administration of 5.2 mCi of technetium-99m Choletec. COMPARISON: CT abdomen and pelvis 04/04/2025 FINDINGS: There is prompt, uniform accumulation of the tracer by the liver. There is normal filling of the int rahepatic ducts and common bile duct. Excretion of the tracer into the duodenum is not noted on the i nitial images through 60 minutes. Delayed 75 minute image demonstrates normal excretion into the smal l bowel. The gallbladder fills normally. IMPRESSION: No evidence of cystic or common bile duct obstruction. ACT 112: Negative or not required by law. The above report was generated using voice recognition software. It may contain grammatical, syntax o r spelling errors. Electronically signed by: Mark Ortiz M.D. 04/05/2025 2:49 PM
[2025-04-05 16:19] VITALS: BP 152/70; PULSE 57; RESP 16; TEMP 98.1; O2SAT 98
--- NOTE | 2025-04-05 16:36 | Hospitalist Progress Note ---
Date of Service April 05, 2025 Assessment & Plan (1) Acute cholecystitis: Plan: HIDA scan ordered today by general surgery appears to be normal, effectively ruling out acute cholecystitis. (2) Bilateral pulmonary embolism: Plan: Subacute. Pradaxa was held on admission and will be restarted now that acute cholecystitis has been ruled out (3) BPH (benign prostatic hyperplasia): Plan: Stable. Continue tamsulosin (4) Hypertension: Plan: Stable. Continue propranolol (5) HLD (hyperlipidemia): Plan: Stable. Continue atorvastatin (6) Diabetes: Plan: Metformin on hold. Sliding scale coverage. Plan Discharge to home now that acute cholecystitis has been ruled out Admission and Anticipated Discharge Date Admission Date: April 04, 2025 Subjective Alert and oriented. No new problems. Surgery entry noted. HIDA scan was ordered and appears to be normal. This effectively rules out acute cholecystitis. The patient is currently asymptomatic Review of Systems 2 Review of Systems: Constitutionalno fever or chills ENTno blurred vision, no double vision, no epistaxis, no sore throat Respiratoryno cough, no wheezing, no shortness of breath Cardiacno palpitations, no chest pain, no syncope Jacobo nausea, vomiting, diarrhea, melena, hematochezia GUno urinary retention, no urinary incontinence, no dysuria, no hematuria Musculoskeletalno joint pain, no muscle tenderness Skinno bruising, no rashes, no pruritus Neurono isolated weakness, no paresthesia, no weakness Psychno depression, no anxiety Physical Exam 2 Physical Exam: General-alert and oriented x3, no fever, no chills HEENT-head atraumatic and normocephalic, pupils equal and reactive to light, extraocular muscles intact Neck-no lymphadenopathy or thyromegaly, trachea midline Chest-clear to auscultation. No rales, wheezing or rhonchi Cardiac-regular rate and rhythm, normal S1 and S2 Abdomen-normal bowel sounds, no hepatosplenomegaly Extremities-no cyanosis, clubbing, or edema Neuro-cranial nerves II through XII intact, motor and sensory function within normal limits, strength symmetrical, no focal deficits Psych-normal affect, normal mood Results & Data Results & Data Vital Signs (Past 12 Hours) Vital Signs Temp Pulse Resp BP Pulse Ox O2 Del Method 04/05/25 16:19 36.7 C 57 L 16 152/70 H 98 Room Air 04/05/25 09:33 62 95 Room Air 04/05/25 07:47 Room Air 04/05/25 07:37 36.4 C L 56 L 14 144/74 H 96 Room Air Laboratory Results 04/05/25 07:25 04/05/25 07:25 PG Care Time/CCT Total # of Minutes Spent Total Time Spent with Patient: Total time spent is greater than 50% in coordination of care (as documented) at patient's floor/unit and/or counseling patient: Coding Level of Care Code 99847 SUB INP/OBS CARE 3/50MIN Diagnoses Acute cholecystitis K81.0 Bilateral pulmonary embolism I26.99 BPH (benign prostatic hyperplasia) N40.0 Hypertension I10 HLD (hyperlipidemia) E78.5 Diabetes E11.9
--- NOTE | 2025-04-05 16:56 | Communication Note ---
Date of Service: April 05, 2025 By CMS guidelines, a determination that the admission or continued stay is not medically necessary has been made by a member of the UR committee and a physic dayami for this hospital stay, therefore a Code 44 will be completed and the Inpatient admission will be changed to outpatient.
--- NOTE | 2025-04-05 16:56 | Discharge Summary ---
Discharge Summary Date of Service April 05, 2025 Principal Dx & Hospital Course #1 = Principal Diagnosis (1) Acute cholecystitis: HIDA scan ordered today by general surgery appears to be normal, effectively ruling out acute cholecystitis. Suspect viral etiology of his epigastric pain on admission which has now resolved (2) Bilateral pulmonary embolism: Subacute. Pradaxa was held on admission and will be restarted now that acute cholecystitis has been ruled out (3) BPH (benign prostatic hyperplasia): Stable. Continue tamsulosin (4) Hypertension: Stable. Continue propranolol (5) HLD (hyperlipidemia): Stable. Continue atorvastatin (6) Diabetes: Metformin on hold. Sliding scale coverage. Plan Discharge to home now that acute cholecystitis has been ruled out Admission HPI Per Admitting Provider Pt is a 79 y/o male with pmh of DM, PE/DVT on pradaxa, HLD, GERD, BPH, HTN, who presents with RLQ abdominal pain that started last night after eating dinner. Pt denies any nausea/vomiting, no fevers. Pt has had history of sigmoid resection 2nd to diverticulitis, with previous SBO. In the ER patient had CT a/p which was negative for obstruction, but did show acute cholecystitis. WBC 13k and alk phos mildly elevated at 128. Dr. Estrada was consulted who plans to take patient to the OR in the am for cholecystectomy. Discharge Exam General-alert and oriented x3, no fever, no chills HEENT-head atraumatic and normocephalic, pupils equal and reactive to light, extraocular muscles intact Neck-no lymphadenopathy or thyromegaly, trachea midline Chest-clear to auscultation. No rales, wheezing or rhonchi Cardiac-regular rate and rhythm, normal S1 and S2 Abdomen-normal bowel sounds, no hepatosplenomegaly Extremities-no cyanosis, clubbing, or edema Neuro-cranial nerves II through XII intact, motor and sensory function within normal limits, strength symmetrical, no focal deficits Psych-normal affect, normal mood Discharge Plan Discharge Items Patient Disposition: Home - Self-Care Reason For Visit: ACUTE CHOLECYSTITIS Discharge Diagnosis: Epigastric pain of suspected viral etiology Activity: Resume your previous activity Non-emergency contact: Primary Care Provider Call non-emergency contact if: your symptoms worsen Follow-up/Referrals: Silverio Pride PA-C [Primary Care Provider] - Diet: Carb Consistent or DM2 Addtl Attending Provider Instructions: All medications remain the same. See primary care provider soon as possible Pending Studies at Discharge: No Stand-Alone Forms: My [facility], Smoking Cessation Medications and DC Order Prescriptions: New primidone 50 mg Tablet 50 mg PO TID Qty: 0 0RF Continued primidone 50 mg tablet See Rx Instructions PO .COMPLEX Qty: 90 3RF Rx Instructions: Take 1/2 tablet 3 times a day for 2 weeks, then do a whole tablet 3 times a day dabigatran etexilate 150 mg capsule 150 mg PO BID Qty: 180 3RF atorvastatin 20 mg tablet 20 mg PO DAILY metformin 500 mg tablet 500 mg PO DAILY gabapentin 100 mg capsule 100 mg PO DAILY propranolol 80 mg capsule,extended release 24hr 80 mg PO DAILY Qty: 90 3RF amino acids Capsule 1 cap PO DAILY beta carotene 7,500 mcg (25,000 unit) capsule 7,500 mcg PO DAILY Rx Instructions: administer with a meal echinacea 400 mg capsule 400 mg PO DAILY arginine (L-arginine) 500 mg tablet 500 mg PO DAILY Rx Instructions: administer after a meal cholecalciferol (vitamin D3) 10 mcg (400 unit) tablet 10 mcg PO DAILY vitamin A palmitate 3,000 mcg (10,000 unit) tablet 1,500 mcg PO DAILY coQ10 (ubiquinol) [Qunol Darren CoQ10] 100 mg capsule 100 mg PO DAILY ascorbic acid (vitamin C) 1,000 mg capsule 1,000 mg PO DAILY triazolam 0.25 mg tablet 0.25 mg PO HS PRN (Reason: Insomnia) valacyclovir 500 mg tablet 500 mg PO DAILY tamsulosin 0.4 mg capsule 0.4 mg PO HS tadalafil 10 mg tablet 10 mg PO UD Rx Instructions: DIRECTED rabeprazole 20 mg tablet,delayed release (DR/EC) 20 mg PO DAILY testosterone cypionate 200 mg/mL oil 100 mg IM WK celecoxib 200 mg capsule 200 mg PO DAILY PRN (Reason: joint pain) famotidine 40 mg tablet 40 mg PO DAILY omeprazole 40 mg capsule,delayed release(DR/EC) 40 mg PO DAILY Discharge Orders: Discharge Order (Routine); Ordered 04/05/25 Ordered By: Gilberto Fowler Admission Data Admit Date/Time: 04/04/25 13:43 Attending Provider: Gilberto Fowler Admit Provider: Perry Holman Primary Care Provider: Silverio Pride Other Providers: Perry Holman; Savannah Estrada Hospital Stay Data Consultations 04/04/25 12:54 ED Decision to Admit Stat 04/04/25 14:28 Consult General Surgery Routine Diagnostic Imagining Performed 04/04/25 10:36 CT abd pelvis IV con only Stat 04/04/25 14:27 US RUQ [US liver] Stat Pending Results Patient Have Any Pending Studies at Discharge: No Discharge Instructions Given to Patient (Per Discharging Provider) All medications remain the same. See primary care provider soon as possible Total Time Total Time Spent Total Time Spent (In Minutes): 50 minutes Coding Level of Care Code 54335 INP/OBS DISCH >30 MIN Diagnoses Acute cholecystitis K81.0 Bilateral pulmonary embolism I26.99 BPH (benign prostatic hyperplasia) N40.0 Hypertension I10 HLD (hyperlipidemia) E78.5 Diabetes E11.9
--- NOTE | 2025-04-05 18:30 | Electrocardiogram Report ---
Test Reason : Blood Pressure : */* mmHG Vent. Rate : 57 BPM Atrial Rate : 57 BPM P-R Int : 244 ms QRS Dur : 96 ms QT Int : 424 ms P-R-T Axes : 15 -35 61 degrees QTcB Int : 412 ms Sinus bradycardia with 1st degree A-V block Left axis deviation possible Inferior infarct (cited on or before 24-Oct-2015) Abnormal ECG When compared with ECG of 18-Mar-2025 11:28, Minimal criteria for Anterior infarct are no longer Present Confirmed by Bi Drake ([id number]) on 04/05/2025 6:30:00 PM Referred By: REFERRED SELF Confirmed By: Bi Drake
== END 2025-04-05 17:46 | disposition home or self-care (01) | DRG 865 ==
LOC: ED 10:01 → SUATTDRO 13:43 → 3W 13:43